=== PATIENT | male | born 1970 | race Caucasian/White ===

== ENCOUNTER 2021-02-27 18:02 | Inpatient (IN) | payer MEDICAID ==
[~2021-02-27] VITALS: Ht 167.6 cm; Wt 62.8 kg
[~2021-02-27 18:02] MED LIST: NO HOME MEDS; etomidate 2mg/ml inj. ONE; rocuronium 10mg/ml inj IV ONE; sod chloride 0.9% 10ml flush syringe IV ONE
[2021-02-27] MEDS ORDERED: normal saline 1000ML IV soln IVB ONE (18:05)
[2021-02-27 18:23] LABS: BASOPHILS # (AUTO) 0.1 X10'3 (0-0.2); BASOPHILS % (AUTO) 0.5 % (0-1); EOSINOPHILS # (AUTO) 0.2 X10'3 (0-0.9); EOSINOPHILS % (AUTO) 1.7 % (0-6); HEMATOCRIT 43.2 % (42.0-52.0); HEMOGLOBIN 14.3 g/dl (14.0-17.9); MEAN CORPUSCULAR HEMOGLOBIN 31.3 PG (27.0-31.0); MEAN CORPUSCULAR HGB CONC 33.2 g/dL (33.0-36.5); MEAN CORPUSCULAR VOLUME 94.3 FL (78-98); MEAN PLATELET VOLUME 7.4 FL (7.4-10.4); MONOCYTES # (AUTO) 1.6 X10'3 (0-0.9); MONOCYTES % (AUTO) 11.3 % (2-12); NEUTROPHILS # (AUTO) 4.3 X10'3 (1.8-7.7); NEUTROPHILS % (AUTO) 30.5 % (42-75); PLATELET COUNT 387 X10'3 (140-440); RED BLOOD COUNT 4.58 X10'6 (4.70-6.10); RED CELL DISTRIBUTION WIDTH 13.5 % (11.5-14.5); WHITE BLOOD COUNT 14.3 X10'3 (4.5-11.0)
[2021-02-27 18:48] LABS: ALANINE AMINOTRANSFERASE 27 U/L (12-78); ALBUMIN 3.1 G/DL (3.4-5.0); ALBUMIN/GLOBULIN RATIO 0.7 (1.1-1.5); ALKALINE PHOSPHATASE 82 IU/L (46-116); ANION GAP 12 (8-16); ASPARTATE AMINO TRANSFERASE 21 U/L (10-37); BILIRUBIN,TOTAL 0.7 MG/DL (0.1-1.0); BLOOD UREA NITROGEN 15 MG/DL (7-18); BUN/CREATININE RATIO 9.4 (5.4-32.0); CALCIUM 8.3 MG/DL (8.5-10.1); CHLORIDE 106 MMOL/L (99-107); CREATININE 1.59 MG/DL (0.60-1.10); GLUCOSE 320 MG/DL (70-104); POTASSIUM 3.6 MMOL/L (3.5-5.1); SODIUM 143 MMOL/L (135-145); TOTAL CARBON DIOXIDE 25.2 MMOL/L (24-32); TOTAL PROTEIN 7.8 G/DL (6.4-8.2); eGFR 46 ML/MIN
[2021-02-27 18:50] LABS: ETHANOL < 0.010 GM/DL (0.0-0.010)
[2021-02-27 19:21] LABS: TOTAL CELLS COUNTED 100
[2021-02-27 19:23] LABS: PLATELET ESTIMATE NORMAL; SMUDGE CELLS FEW
--- NOTE | 2021-02-27 19:24 | NUR ---
PT GIRLFRIEND CALLED AND LEFT NUMBER DESIREE: [phone]
[2021-02-27 19:44] LABS: ABG BASE EXCESS -8.1 mmol/L (-2.0-2.0); ABG HCO3 25.5 mmol/L (22.0-26.0); ABG OXYGEN SATURATION 90.6 % (94-97); ABG PCO2 (T) 100.6 mmHg (35.0-48.0); ALLEN'S TEST POSITIVE; FCOHb 0.4 % (0.0-3.9); FMetHb 0.3 % (0.0-1.5); PEEP 10 cm H2O; RESPIRATORY RATE 16 b/min; TIDAL VOLUME 400 mL; TOTAL HEMOGLOBIN 14.7 G/dl (14.0-18.0)
[2021-02-27] MEDS ORDERED: propofol 1000mg/100ml bottle 100 ML IV PRN (20:25)
[2021-02-27] MEDS ORDERED: propofol 1000mg/100ml bottle 100 ML IV ONE (20:26)
[2021-02-27] MEDS ORDERED: ipratropium/albuterol 3ml nebule NEB PRN (20:40)
[2021-02-27] MEDS ORDERED: CefTRIAXone/D5W-Rocephin 1gm 50 ML IV SCH ×2 (20:45→22:01)
[2021-02-27] MEDS: propofol 1000mg/100ml bottle 100 ML IV SCH ×2 (21:13→23:12)
[2021-02-27 21:59] LABS: CLARITY,URINE SLIGHTLY CLOUDY (Clear); COLOR,URINE YELLOW (Yellow); PROTEIN,URINE TRACE mg/dl (Neg); UA COLLECTION TYPE STRAIGHT CATH
[2021-02-27 22:00] LABS: GLUCOSE, URINE 100 mg/dl (Neg)
[2021-02-27 22:03] LABS: KETONES,URINE NEGATIVE (Neg); LEUKOCYTE ESTERASE ,URINE NEGATIVE (Neg); NITRITES, URINE NEGATIVE (Neg); OCCULT BLOOD,URINE NEGATIVE (Neg); UROBILINOGEN,URINE 0.2 E.U/dL (0.2-1.0)
[2021-02-27 22:06] LABS: URINE AMPHETAMINE SCREEN POSITIVE (Neg); URINE BARBITUATE SCREEN NEGATIVE (Neg); URINE BENZODIAZEPINES SCREEN NEGATIVE (Neg); URINE CANNABINOID SCREEN NEGATIVE (Neg); URINE COCAINE SCREEN NEGATIVE (Neg); URINE METHADONE SCREEN NEGATIVE (Neg); URINE OPIATE SCREEN NEGATIVE (Neg); URINE PHENCYCLIDINE SCREEN NEGATIVE (Neg)
[2021-02-27 22:07] LABS: CELLULAR CAST 0-4 /LPF (NEGATIVE); MUCUS STRANDS FEW /LPF (Neg); SQUAMOUS EPITHELIAL CELL,UR FEW /LPF (FEW)
[2021-02-27 22:08] LABS: BACTERIA,URINE FEW /HPF (Neg)
[2021-02-27 22:09] LABS: RBC,URINE 0-2 /HPF (0-2); WBC,URINE 0-4 /HPF (0-4)
[2021-02-27] MEDS: phenylephrine inj 50 MG in normal saline 250ml IV soln 245 ML IV SCH (22:25)
[2021-02-27] MEDS ORDERED: ringers solution, lacted 1,000 ML IV ONE (22:25)
[2021-02-27] MEDS: dexmedetomidine/D5W 100mL 100 ML IV SCH (22:36)
[2021-02-27] MEDS: ringers solution, lacted 1,000 ML IV SCH (22:45)
[2021-02-27 23:00] VITALS: BP 101/70
[2021-02-27] MEDS: metroNIDAZOLE-Flagyl 500mg/NS 100 ML IV SCH (23:13)
[2021-02-28] VITALS (21 sets, daily range): BP systolic 64–94; BP diastolic 30–58
[2021-02-28] MEDS: phenylephrine inj 50 MG in normal saline 250ml IV soln 245 ML IV SCH ×5 (01:48→22:23)
[2021-02-28] MEDS ORDERED: ringers solution, lacted 1,000 ML IV ONE ×2 (03:20→13:50)
[2021-02-28] MEDS: dexmedetomidine/D5W 100mL 100 ML IV SCH ×5 (03:28→23:22)
[2021-02-28] MEDS: NORepinephrine 8mg/ 250ml NS 250 ML IV SCH ×2 (03:38→11:06)
[2021-02-28 04:25] LABS: ABG BASE EXCESS -7.1 mmol/L (-2.0-2.0); ABG HCO3 19.4 mmol/L (22.0-26.0); ABG OXYGEN SATURATION 87.8 % (94-97); ABG PCO2 (T) 42.9 mmHg (35.0-48.0); ABG PO2 (T) 54.8 mmHg (75.0-100.0); ALLEN'S TEST POSITIVE; FCOHb 0.3 % (0.0-3.9); FMetHb 0.2 % (0.0-1.5); FO2Hb 87.4 % (94-97); PATIENT TEMPERATURE 37.1; PEEP 10 cm H2O; RESPIRATORY RATE 24 b/min; TIDAL VOLUME 450 mL; TOTAL HEMOGLOBIN 14.6 G/dl (14.0-18.0)
[2021-02-28] MEDS ORDERED: fentaNYL/PF 50MCG/1 ML 2ML syringe IV ONE (04:25)
[2021-02-28] MEDS ORDERED: vancomycin/NS 1 GM ADD-VANTAGE 250 ML IV SCH (06:00)
[2021-02-28 07:16] LABS: ALBUMIN 1.9 G/DL (3.4-5.0); ANION GAP 13 (8-16); BLOOD UREA NITROGEN 20 MG/DL (7-18); BUN/CREATININE RATIO 9.6 (5.4-32.0); CALCIUM 6.2 MG/DL (8.5-10.1); CHLORIDE 115 MMOL/L (99-107); CREATININE 2.08 MG/DL (0.60-1.10); GLUCOSE 83 MG/DL (70-104); MAGNESIUM 1.5 MG/DL (1.5-2.4); PHOSPHORUS 2.2 MG/DL (2.3-4.5); SODIUM 148 MMOL/L (135-145); TOTAL CARBON DIOXIDE 19.9 MMOL/L (24-32); TRIGLYCERIDES 316 MG/DL (20-135); eGFR 34 ML/MIN
[2021-02-28 07:21] LABS: POTASSIUM 3.8 MMOL/L (3.5-5.1)
[2021-02-28] MEDS: ringers solution, lacted 1,000 ML IV SCH (07:25)
[2021-02-28] MEDS ORDERED: CLINDAMYCIN/D5W 900mg/50ml 50 ML IV ONE (07:50)
[2021-02-28] MEDS ORDERED: CLINDAMYCIN/D5W 900mg/50ml 50 ML IV SCH (08:00)
[2021-02-28] MEDS ORDERED: VANCOMYCIN 1,500MG inj. 1,500 MG in normal saline 500ml IV soln 500 ML IV SCH (08:00)
[2021-02-28] MEDS: pantoprazole 40 MG vial IV SCH (08:12)
[2021-02-28] MEDS: enoxaparin 40mg/0.4ml syringe SUBCUT SCH (08:12)
[2021-02-28] MEDS: metroNIDAZOLE-Flagyl 500mg/NS 100 ML IV SCH (08:13)
[2021-02-28 08:17] LABS: HEMOGLOBIN A1C 5.1 % (4.5-6.2)
[2021-02-28] MEDS: propofol 1000mg/100ml bottle 100 ML IV SCH ×2 (08:17→17:41)
[2021-02-28] MEDS: sodium bicarbonate (8.4%) inj. 100 MEQ in dextrose 5%-water 1,000 ML IV SCH ×2 (09:00→17:15)
[2021-02-28] MEDS ORDERED: CALCIUM GLUC 1gm/50ml NACL,iso 100 ML IV ONE (09:25)
[2021-02-28 09:43] LABS: BASOPHILS % (AUTO) 0.3 % (0-1); EOSINOPHILS % (AUTO) 0.1 % (0-6); HEMATOCRIT 36.8 % (42.0-52.0); HEMOGLOBIN 11.9 g/dl (14.0-17.9); LYMPHOCYTES # (AUTO) 0.9 X10'3 (1.1-4.8); LYMPHOCYTES % (AUTO) 16.4 % (21-51); MEAN CORPUSCULAR HEMOGLOBIN 30.9 PG (27.0-31.0); MEAN CORPUSCULAR HGB CONC 32.3 g/dL (33.0-36.5); MEAN CORPUSCULAR VOLUME 95.8 FL (78-98); MEAN PLATELET VOLUME 7.3 FL (7.4-10.4); MONOCYTES # (AUTO) 0.2 X10'3 (0-0.9); MONOCYTES % (AUTO) 3.8 % (2-12); NEUTROPHILS # (AUTO) 4.2 X10'3 (1.8-7.7); NEUTROPHILS % (AUTO) 79.4 % (42-75); PLATELET COUNT 266 X10'3 (140-440); RED BLOOD COUNT 3.84 X10'6 (4.70-6.10); RED CELL DISTRIBUTION WIDTH 13.2 % (11.5-14.5); WHITE BLOOD COUNT 5.3 X10'3 (4.5-11.0)
[2021-02-28] MEDS ORDERED: CISatracurium **Bolus** 2 mg/ml inj IV ONE (10:00)
[2021-02-28 10:45] LABS: ALANINE AMINOTRANSFERASE 24 U/L (12-78); ALBUMIN/GLOBULIN RATIO 0.6 (1.1-1.5); ALKALINE PHOSPHATASE 39 IU/L (46-116); ASPARTATE AMINO TRANSFERASE 31 U/L (10-37); BILIRUBIN,TOTAL 0.6 MG/DL (0.1-1.0); TOTAL PROTEIN 5.2 G/DL (6.4-8.2)
[2021-02-28] MEDS: vasopressin inj. 40 UNIT in normal saline 50ml IV soln 38 ML IV SCH ×2 (10:49→19:17)
[2021-02-28] MEDS: CISatracurium besylate inj. 100 MG in normal saline 100ml IV soln 90 ML IV PRN (11:15)
--- NOTE | 2021-02-28 11:27 | NUR ---
Initial: Pt found down and unresponsive d/t fentanyl OD per EMR. Pt currently ventilated and sedated; propofol currently at 12.24ml/hr providing 323kcals/d. Pt w/ septic shock and KOBE per MD note, may require rotoprone bed. Limited nutrition intervention at this time given pt condition. TF recs below in case of prolonged intubation. Will continue to monitor. Recs: 1. IF TF, Continuous TF using Vital HP at 60ml/hr; may change based on current Propofol rate 2. IF TF, Additional water flush 100ml Q4H 3. IF TF, PALB QM/Th; daily wts 4. Routine bowel care 5. Monitor TF tolerance Addendum: 02/28/21 at [address] Amended: Links added.
[2021-02-28] MEDS ORDERED: vancomycin/NS 1 GM ADD-VANTAGE 250 ML IV PRN (11:50)
[2021-02-28 12:36] LABS: OXYGEN SATURATION (MIXED VEN) 82.1 % (60-80); PO2 MIXED VENOUS (TEMP COR) 61.3 mmHg (35-46)
[2021-02-28] MEDS: NORepinephrine inj. 32 MG in normal saline 250ml IV soln 218 ML IV SCH ×2 (15:22→21:53)
[2021-02-28] MEDS: meropenem inj 1 GM in normal saline 100ml IV soln 100 ML IV SCH ×2 (15:22→19:46)
--- NOTE | 2021-02-28 18:30 | NUR ---
Patient in room ICU 2039. I have received report from Steven GEIGER and had the opportunity to ask questions and assume patient care.
--- NOTE | 2021-02-28 19:30 | NUR ---
ICU Tele-Med MD notified and given and update on PT condition. PT is max dose on Quad strength Levo, Vaso and Brad with still low BP. Labs were drawn this morning. Order received to check a CBC and ABG. Will continue to monitor.
[2021-02-28 19:46] LABS: ABG BASE EXCESS -12.6 mmol/L (-2.0-2.0); ABG HCO3 24.9 mmol/L (22.0-26.0); ABG PCO2 (T) 149.7 mmHg (35.0-48.0); ABG PO2 (T) 54.9 mmHg (75.0-100.0); FCOHb 0.3 % (0.0-3.9); FMetHb 0.6 % (0.0-1.5); FO2Hb 77.3 % (94-97); PATIENT TEMPERATURE 37.3; PEEP 12 cm H2O; RESPIRATORY RATE 24 b/min; TIDAL VOLUME 450 mL; TOTAL HEMOGLOBIN 14.8 G/dl (14.0-18.0)
[2021-02-28 19:59] LABS: LYMPHOCYTES # (AUTO) 0.6 X10'3 (1.1-4.8); MEAN CORPUSCULAR VOLUME 96.5 FL (78-98); MONOCYTES # (AUTO) 0.1 X10'3 (0-0.9); NEUTROPHILS # (AUTO) 2.3 X10'3 (1.8-7.7); RED BLOOD COUNT 4.45 X10'6 (4.70-6.10); RED CELL DISTRIBUTION WIDTH 13.7 % (11.5-14.5)
--- NOTE | 2021-02-28 20:00 | NUR ---
ICU Tele-Med MD notified of critical ABG results. Order received to increase TV from 450 to 550 and increase RR from 24 to 30. Will continue to monitor.
[2021-02-28 20:01] LABS: BASOPHILS % (AUTO) 0.2 % (0-1); EOSINOPHILS % (AUTO) 0.1 % (0-6); HEMOGLOBIN 13.8 g/dl (14.0-17.9); LYMPHOCYTES % (AUTO) 19.4 % (21-51); MEAN CORPUSCULAR HGB CONC 32.2 g/dL (33.0-36.5); MEAN PLATELET VOLUME 7.4 FL (7.4-10.4); MONOCYTES % (AUTO) 3.3 % (2-12); PLATELET COUNT 245 X10'3 (140-440)
[2021-02-28] MEDS: lactobacillus rhamnosus 10,000 MMU CELLS/CAPSULE PO SCH (20:04)
[2021-02-28] MEDS: hydrocortisone sod succ/PF 100mg/2ml inj. IV SCH (20:04)
--- NOTE | 2021-02-28 21:55 | NUR ---
ICU Tele-Med MD notified and given update on PT condition. PT still continues to have low BP and on the downward trend despite being Maxxed on multiple pressors. Order received to start Epi gtt and to connect FloTrac. Will continue to monitor.
[2021-02-28 22:23] LABS: PLATELET ESTIMATE NORMAL; TOTAL CELLS COUNTED 100
[2021-02-28] MEDS: epiNEPHrine inj 5 MG in normal saline 250ml IV soln 245 ML IV PRN (22:23)
[2021-02-28 22:26] LABS: BURR CELLS FEW
[2021-02-28 22:34] LABS: LARGE PLATELETS FEW
[2021-03-01] VITALS (24 sets, daily range): BP systolic 71–121; BP diastolic 40–70
[2021-03-01] MEDS: sodium bicarbonate (8.4%) inj. 100 MEQ in dextrose 5%-water 1,000 ML IV SCH ×4 (01:04→17:22)
[2021-03-01] MEDS: hydrocortisone sod succ/PF 100mg/2ml inj. IV SCH ×4 (01:16→20:17)
[2021-03-01] MEDS: mineral oil/petrolatum ophthal oint EACHEYE SCH ×4 (01:26→20:20)
[2021-03-01] MEDS: CISatracurium besylate inj. 100 MG in normal saline 100ml IV soln 90 ML IV PRN ×2 (01:54→23:51)
[2021-03-01] MEDS: phenylephrine inj 50 MG in normal saline 250ml IV soln 245 ML IV SCH ×7 (01:55→23:46)
[2021-03-01] MEDS: epiNEPHrine inj 5 MG in normal saline 250ml IV soln 245 ML IV PRN ×2 (01:55→04:21)
[2021-03-01 02:03] LABS: BASOPHILS % (AUTO) 0.3 % (0-1); EOSINOPHILS % (AUTO) 0.2 % (0-6); HEMATOCRIT 43.7 % (42.0-52.0); LYMPHOCYTES # (AUTO) 0.8 X10'3 (1.1-4.8); LYMPHOCYTES % (AUTO) 19.2 % (21-51); MEAN CORPUSCULAR HGB CONC 32.2 g/dL (33.0-36.5); MEAN CORPUSCULAR VOLUME 96.6 FL (78-98); MEAN PLATELET VOLUME 7.7 FL (7.4-10.4); MONOCYTES # (AUTO) 0.2 X10'3 (0-0.9); MONOCYTES % (AUTO) 4.6 % (2-12); NEUTROPHILS # (AUTO) 3.2 X10'3 (1.8-7.7); NEUTROPHILS % (AUTO) 75.7 % (42-75); PLATELET COUNT 193 X10'3 (140-440); RED BLOOD COUNT 4.52 X10'6 (4.70-6.10); RED CELL DISTRIBUTION WIDTH 13.8 % (11.5-14.5); WHITE BLOOD COUNT 4.3 X10'3 (4.5-11.0)
[2021-03-01 02:11] LABS: PARTIAL THROMBOPLASTIN TIME 42 SECONDS (22-32)
[2021-03-01 02:21] LABS: ALANINE AMINOTRANSFERASE 55 U/L (12-78); ALBUMIN 1.8 G/DL (3.4-5.0); ALBUMIN/GLOBULIN RATIO 0.5 (1.1-1.5); ALKALINE PHOSPHATASE 46 IU/L (46-116); ANION GAP 18 (8-16); ASPARTATE AMINO TRANSFERASE 139 U/L (10-37); BILIRUBIN,TOTAL 0.6 MG/DL (0.1-1.0); BLOOD UREA NITROGEN 35 MG/DL (7-18); BUN/CREATININE RATIO 6.9 (5.4-32.0); CALCIUM 6.5 MG/DL (8.5-10.1); CHLORIDE 107 MMOL/L (99-107); GLUCOSE 143 MG/DL (70-104); MAGNESIUM 1.8 MG/DL (1.5-2.4); POTASSIUM 4.3 MMOL/L (3.5-5.1); SODIUM 145 MMOL/L (135-145); TOTAL CARBON DIOXIDE 19.9 MMOL/L (24-32); TOTAL PROTEIN 5.7 G/DL (6.4-8.2); VANCOMYCIN,RANDOM 5.9 UG/ML; eGFR 12 ML/MIN
[2021-03-01 02:25] LABS: PHOSPHORUS 10.3 MG/DL (2.3-4.5)
[2021-03-01] MEDS: VANCOMYCIN LEVEL IV SCH (02:41)
[2021-03-01] MEDS: dexmedetomidine/D5W 100mL 100 ML IV SCH ×5 (02:58→22:15)
--- NOTE | 2021-03-01 02:58 | NUR ---
ICU Tele-Med MD notified after receiving LA of 5.8. Also made him aware of CRE now is 5.10. No new orders received at this time. Will continue to monitor.
[2021-03-01 03:55] LABS: ABG BASE EXCESS -16.8 mmol/L (-2.0-2.0); ABG HCO3 18.9 mmol/L (22.0-26.0); ABG OXYGEN SATURATION 85.8 % (94-97); ABG PCO2 (T) 108.8 mmHg (35.0-48.0); ABG PO2 (T) 62.2 mmHg (75.0-100.0); FCOHb 0.1 % (0.0-3.9); FMetHb 0.5 % (0.0-1.5); FO2Hb 85.3 % (94-97); PATIENT TEMPERATURE 37.7; PEEP 12 cm H2O; RESPIRATORY RATE 30 b/min; TIDAL VOLUME 550 mL; TOTAL HEMOGLOBIN 14.8 G/dl (14.0-18.0)
[2021-03-01] MEDS: NORepinephrine inj. 32 MG in normal saline 250ml IV soln 218 ML IV SCH ×3 (04:23→18:52)
--- NOTE | 2021-03-01 04:45 | NUR ---
During morning rounds critical ABG results were reported to TELE-Med MD. Change in vent orders received with RT at bedside making changes. Recheck an ABG @ 3679.
[2021-03-01] MEDS: propofol 1000mg/100ml bottle 100 ML IV SCH ×2 (04:46→16:55)
[2021-03-01 05:41] LABS: ABG HCO3 18.6 mmol/L (22.0-26.0); ABG OXYGEN SATURATION 86.7 % (94-97); ABG PCO2 (T) 97.5 mmHg (35.0-48.0); ABG PO2 (T) 62.4 mmHg (75.0-100.0); FCOHb 0.2 % (0.0-3.9); FMetHb 0.5 % (0.0-1.5); FO2Hb 86.1 % (94-97); PATIENT TEMPERATURE 37.7; PEEP 12 cm H2O; RESPIRATORY RATE 28 b/min; TOTAL HEMOGLOBIN 14.6 G/dl (14.0-18.0)
--- NOTE | 2021-03-01 05:56 | NUR ---
ICU Tele-Med MD notified of critical values on re-check ABG. Orders received to increase pressure support from 27 to 28 and increase RR from 28 to 30. Recheck ABG at 0700.
--- NOTE | 2021-03-01 06:20 | NUR ---
Problems reprioritized. Patient report given, questions answered & plan of care reviewed with Steven GEIGER.
[2021-03-01] MEDS: epiNEPHrine inj 10 MG in normal saline 250ml IV soln 240 ML IV PRN ×6 (06:50→22:42)
[2021-03-01] MEDS: enoxaparin 40mg/0.4ml syringe SUBCUT SCH (07:39)
[2021-03-01] MEDS: lactobacillus rhamnosus 10,000 MMU CELLS/CAPSULE PO SCH ×2 (07:39→20:17)
[2021-03-01] MEDS: pantoprazole 40 MG vial IV SCH (07:39)
[2021-03-01] MEDS: meropenem inj 1 GM in normal saline 100ml IV soln 100 ML IV SCH ×2 (07:40→20:20)
[2021-03-01] MEDS ORDERED: heparin 25,000 UNIT/250ml bag 250 ML IV SCH (07:45)
[2021-03-01] MEDS ORDERED: calcium chloride inj. 1,000 MG in normal saline 100ml IV soln 100 ML IV PRN (07:45)
[2021-03-01] MEDS ORDERED: sodium phosphate inj. 30 MMOL in normal saline 250ml IV soln 250 ML IV PRN (07:45)
[2021-03-01] MEDS ORDERED: magnesium 4gm in 100ml NS 100 ML IV PRN (07:45)
[2021-03-01] MEDS ORDERED: heparin 10,000 units/1 ML INJ IV PRN (07:45)
[2021-03-01] MEDS ORDERED: heparin 10,000 units/1 ML INJ IV ONE (07:45)
[2021-03-01] MEDS ORDERED: vancomycin/NS 1 GM ADD-VANTAGE 250 ML IV ONE (08:00)
[2021-03-01] MEDS: Duosol 4K/3 Ca (w/calcium) 5,000 ML HE SCH ×7 (10:18→23:59)
[2021-03-01 10:28] LABS: BASOPHILS % (AUTO) 0.2 % (0-1); EOSINOPHILS % (AUTO) 0.2 % (0-6); HEMATOCRIT 41.4 % (42.0-52.0); HEMOGLOBIN 13.4 g/dl (14.0-17.9); LYMPHOCYTES # (AUTO) 0.8 X10'3 (1.1-4.8); LYMPHOCYTES % (AUTO) 12.2 % (21-51); MEAN CORPUSCULAR HEMOGLOBIN 31.3 PG (27.0-31.0); MEAN CORPUSCULAR HGB CONC 32.5 g/dL (33.0-36.5); MEAN CORPUSCULAR VOLUME 96.5 FL (78-98); MEAN PLATELET VOLUME 8.3 FL (7.4-10.4); MONOCYTES # (AUTO) 0.3 X10'3 (0-0.9); MONOCYTES % (AUTO) 5.2 % (2-12); NEUTROPHILS # (AUTO) 5.4 X10'3 (1.8-7.7); NEUTROPHILS % (AUTO) 82.2 % (42-75); PLATELET COUNT 129 X10'3 (140-440); RED BLOOD COUNT 4.29 X10'6 (4.70-6.10); RED CELL DISTRIBUTION WIDTH 13.6 % (11.5-14.5); WHITE BLOOD COUNT 6.5 X10'3 (4.5-11.0)
--- NOTE | 2021-03-01 11:06 | NUR ---
Gigi Consult: Gigi 12 w/ R calf scab otherwise skin intact per EMR. Noted pt propofol currently at 8.16ml/hr providing additional 215 kcals/day and starting CVVH this AM per MD. Given Vital High Protein shortage unable to meet minimum protein needs using Vital AF while receiving propofol.MAP remains 54-59 this AM. Updated TF recs below for both Vital AF and Vital High Protein given propofol/CVVH once more appropriate for nutrition support. Recs: 1. IF TF, Continuous TF using Vital High Protein at 75ml/hr would provide 1800ml volume/day, 1800 kcals, 1512ml water, and 158g protein. May change based on current Propofol rate. 2. IF out of Vital High Protein substitute w/ Vital; AF at 70ml/hr providing 1680ml volume/day, 2016 kcals, 1361ml water, and 126g protein. Unable to meet protein needs without overfeeding using Vital AF while pt receiving propofol. 3. IF TF, Additional water flush per staff sonographer on CVVH 4. IF TF, PALB QM/Th; daily wts 5. Routine bowel care Addendum: 03/01/21 at [address] Amended: Links added.
[2021-03-01 11:44] LABS: PARTIAL THROMBOPLASTIN TIME 43 SECONDS (22-32)
[2021-03-01 12:27] LABS: HEMATOCRIT 42.3 % (42.0-52.0); HEMOGLOBIN 13.9 g/dl (14.0-17.9); MEAN CORPUSCULAR HEMOGLOBIN 31.3 PG (27.0-31.0); MEAN PLATELET VOLUME 8.2 FL (7.4-10.4); PLATELET COUNT 103 X10'3 (140-440); RED BLOOD COUNT 4.45 X10'6 (4.70-6.10); RED CELL DISTRIBUTION WIDTH 13.8 % (11.5-14.5); WHITE BLOOD COUNT 8.6 X10'3 (4.5-11.0)
[2021-03-01 12:54] LABS: ALBUMIN 1.7 G/DL (3.4-5.0); ANION GAP 13 (8-16); BLOOD UREA NITROGEN 38 MG/DL (7-18); BUN/CREATININE RATIO 7.5 (5.4-32.0); CHLORIDE 104 MMOL/L (99-107); GLUCOSE 184 MG/DL (70-104); MAGNESIUM 1.7 MG/DL (1.5-2.4); PHOSPHORUS 8.8 MG/DL (2.3-4.5); POTASSIUM 3.8 MMOL/L (3.5-5.1); SODIUM 135 MMOL/L (135-145); TOTAL CARBON DIOXIDE 17.6 MMOL/L (24-32); eGFR 12 ML/MIN
--- NOTE | 2021-03-01 13:00 | NUR ---
Critical Ca of 6.0; replacing, will continue to monitor.
[2021-03-01 13:06] LABS: TOTAL CELLS COUNTED 100
[2021-03-01 13:07] LABS: ANISOCYTOSIS 1+; PLATELET ESTIMATE DECREASED; POIKILOCYTOSIS FEW; POLYCHROMASIA FEW
[2021-03-01 13:31] LABS: BASOPHILS % (AUTO) 0.2 % (0-1); EOSINOPHILS % (AUTO) 0.1 % (0-6); HEMATOCRIT 43.1 % (42.0-52.0); HEMOGLOBIN 14.2 g/dl (14.0-17.9); LYMPHOCYTES # (AUTO) 0.7 X10'3 (1.1-4.8); LYMPHOCYTES % (AUTO) 7.2 % (21-51); MEAN CORPUSCULAR HEMOGLOBIN 31.3 PG (27.0-31.0); MEAN CORPUSCULAR HGB CONC 32.9 g/dL (33.0-36.5); MEAN PLATELET VOLUME 8.2 FL (7.4-10.4); MONOCYTES # (AUTO) 0.3 X10'3 (0-0.9); NEUTROPHILS # (AUTO) 8.9 X10'3 (1.8-7.7); NEUTROPHILS % (AUTO) 89.5 % (42-75); PLATELET COUNT 96 X10'3 (140-440); RED BLOOD COUNT 4.54 X10'6 (4.70-6.10); RED CELL DISTRIBUTION WIDTH 13.4 % (11.5-14.5); WHITE BLOOD COUNT 9.9 X10'3 (4.5-11.0)
[2021-03-01 13:41] LABS: ALBUMIN 1.7 G/DL (3.4-5.0); ANION GAP 15 (8-16); BLOOD UREA NITROGEN 36 MG/DL (7-18); BUN/CREATININE RATIO 7.1 (5.4-32.0); CHLORIDE 104 MMOL/L (99-107); CREATININE 5.04 MG/DL (0.60-1.10); GLUCOSE 180 MG/DL (70-104); MAGNESIUM 1.7 MG/DL (1.5-2.4); PHOSPHORUS 8.5 MG/DL (2.3-4.5); POTASSIUM 3.8 MMOL/L (3.5-5.1); SODIUM 137 MMOL/L (135-145); TOTAL CARBON DIOXIDE 18.4 MMOL/L (24-32); eGFR 12 ML/MIN
[2021-03-01] MEDS: calcium chloride inj. 1,000 MG in normal saline 100ml IV soln 90 ML IV PRN (13:46)
[2021-03-01] MEDS: potassium Cl 40MEQ/250ML bag 270 ML IV PRN (13:46)
[2021-03-01 14:19] LABS: EOSINOPHILS % (AUTO) 0.1 % (0-6); HEMATOCRIT 42.8 % (42.0-52.0); HEMOGLOBIN 14.2 g/dl (14.0-17.9); MEAN CORPUSCULAR VOLUME 94.9 FL (78-98); MONOCYTES # (AUTO) 0.3 X10'3 (0-0.9); NEUTROPHILS # (AUTO) 9.4 X10'3 (1.8-7.7); RED CELL DISTRIBUTION WIDTH 13.5 % (11.5-14.5); WHITE BLOOD COUNT 10.4 X10'3 (4.5-11.0)
[2021-03-01 14:20] LABS: BASOPHILS % (AUTO) 0.3 % (0-1); LYMPHOCYTES # (AUTO) 0.6 X10'3 (1.1-4.8); MEAN CORPUSCULAR HEMOGLOBIN 31.6 PG (27.0-31.0); MEAN CORPUSCULAR HGB CONC 33.3 g/dL (33.0-36.5); MEAN PLATELET VOLUME 8.5 FL (7.4-10.4); MONOCYTES % (AUTO) 2.7 % (2-12); NEUTROPHILS % (AUTO) 90.9 % (42-75); PLATELET COUNT 88 X10'3 (140-440); RED BLOOD COUNT 4.52 X10'6 (4.70-6.10)
[2021-03-01 14:28] LABS: ALBUMIN 1.7 G/DL (3.4-5.0); ANION GAP 18 (8-16); BLOOD UREA NITROGEN 35 MG/DL (7-18); BUN/CREATININE RATIO 7.2 (5.4-32.0); CALCIUM 6.3 MG/DL (8.5-10.1); CHLORIDE 105 MMOL/L (99-107); CREATININE 4.87 MG/DL (0.60-1.10); GLUCOSE 187 MG/DL (70-104); MAGNESIUM 1.9 MG/DL (1.5-2.4); POTASSIUM 4.2 MMOL/L (3.5-5.1); SODIUM 140 MMOL/L (135-145); TOTAL CARBON DIOXIDE 17.5 MMOL/L (24-32); eGFR 13 ML/MIN
[2021-03-01 14:30] LABS: PHOSPHORUS 8.2 MG/DL (2.3-4.5)
[2021-03-01 15:15] LABS: BANDS% (MANUAL) 41 % (0-10); LYMPHOCYTES % (MANUAL) 18 % (21-51); METAMYLEOCYTES% (MANUAL) 24 % (0-0); MONOCYTES % (MANUAL) 3 % (2-12); MYELOCYTES % (MANUAL) 2 % (0-0)
[2021-03-01 15:20] LABS: NEUTROPHILS % (MANUAL) 12 % (42-75)
[2021-03-01 15:30] LABS: BASOPHILS % (AUTO) 0.2 % (0-1); EOSINOPHILS % (AUTO) 0.2 % (0-6); LYMPHOCYTES # (AUTO) 0.6 X10'3 (1.1-4.8); MEAN CORPUSCULAR HEMOGLOBIN 31.3 PG (27.0-31.0); RED CELL DISTRIBUTION WIDTH 13.5 % (11.5-14.5)
[2021-03-01 15:31] LABS: HEMATOCRIT 42.5 % (42.0-52.0); LYMPHOCYTES % (AUTO) 5.7 % (21-51); MEAN CORPUSCULAR VOLUME 94.9 FL (78-98); MEAN PLATELET VOLUME 8.3 FL (7.4-10.4); MONOCYTES # (AUTO) 0.4 X10'3 (0-0.9); MONOCYTES % (AUTO) 3.8 % (2-12); NEUTROPHILS # (AUTO) 9.5 X10'3 (1.8-7.7); NEUTROPHILS % (AUTO) 90.1 % (42-75); PLATELET COUNT 80 X10'3 (140-440); RED BLOOD COUNT 4.48 X10'6 (4.70-6.10); WHITE BLOOD COUNT 10.5 X10'3 (4.5-11.0)
[2021-03-01 16:30] LABS: ALBUMIN 1.6 G/DL (3.4-5.0); ANION GAP 18 (8-16); BLOOD UREA NITROGEN 35 MG/DL (7-18); BUN/CREATININE RATIO 7.5 (5.4-32.0); CALCIUM 7.2 MG/DL (8.5-10.1); CHLORIDE 106 MMOL/L (99-107); CREATININE 4.65 MG/DL (0.60-1.10); GLUCOSE 182 MG/DL (70-104); MAGNESIUM 2.3 MG/DL (1.5-2.4); PHOSPHORUS 7.8 MG/DL (2.3-4.5); POTASSIUM 4.6 MMOL/L (3.5-5.1); SODIUM 140 MMOL/L (135-145); TOTAL CARBON DIOXIDE 16.3 MMOL/L (24-32); eGFR 13 ML/MIN
[2021-03-01 17:00] LABS: ABG BASE EXCESS -15.7 mmol/L (-2.0-2.0); ABG OXYGEN SATURATION 94.7 % (94-97); ABG PCO2 (T) 52.1 mmHg (35.0-48.0); ABG PO2 (T) 70.5 mmHg (75.0-100.0); FCOHb 0.2 % (0.0-3.9); FMetHb 0.4 % (0.0-1.5); FO2Hb 94.1 % (94-97); PATIENT TEMPERATURE 35.9; PEEP 12 cm H2O; RESPIRATORY RATE 30 b/min; TIDAL VOLUME 720 mL; TOTAL HEMOGLOBIN 14.9 G/dl (14.0-18.0)
[2021-03-01] MEDS: vasopressin inj. 40 UNIT in normal saline 50ml IV soln 38 ML IV SCH (17:03)
--- NOTE | 2021-03-01 18:25 | NUR ---
Problems reprioritized. Patient report given, questions answered & plan of care reviewed with Haider GEIGER.
[2021-03-01 22:44] LABS: BASOPHILS % (AUTO) 0.1 % (0-1); EOSINOPHILS % (AUTO) 0.1 % (0-6); LYMPHOCYTES # (AUTO) 0.4 X10'3 (1.1-4.8); LYMPHOCYTES % (AUTO) 2.7 % (21-51); MONOCYTES # (AUTO) 0.4 X10'3 (0-0.9); RED CELL DISTRIBUTION WIDTH 13.2 % (11.5-14.5)
[2021-03-01 22:46] LABS: HEMATOCRIT 42.3 % (42.0-52.0); HEMOGLOBIN 14.3 g/dl (14.0-17.9); MEAN CORPUSCULAR HEMOGLOBIN 31.3 PG (27.0-31.0); MEAN CORPUSCULAR HGB CONC 33.9 g/dL (33.0-36.5); MEAN CORPUSCULAR VOLUME 92.3 FL (78-98); MEAN PLATELET VOLUME 8.6 FL (7.4-10.4); NEUTROPHILS # (AUTO) 13.5 X10'3 (1.8-7.7); NEUTROPHILS % (AUTO) 94.1 % (42-75); RED BLOOD COUNT 4.58 X10'6 (4.70-6.10); WHITE BLOOD COUNT 14.4 X10'3 (4.5-11.0)
[2021-03-01 23:01] LABS: ALBUMIN 1.7 G/DL (3.4-5.0); ANION GAP 19 (8-16); BLOOD UREA NITROGEN 28 MG/DL (7-18); BUN/CREATININE RATIO 7.2 (5.4-32.0); CALCIUM 6.7 MG/DL (8.5-10.1); CHLORIDE 103 MMOL/L (99-107); CREATININE 3.88 MG/DL (0.60-1.10); GLUCOSE 166 MG/DL (70-104); MAGNESIUM 2.1 MG/DL (1.5-2.4); PHOSPHORUS 5.8 MG/DL (2.3-4.5); POTASSIUM 4.5 MMOL/L (3.5-5.1); SODIUM 138 MMOL/L (135-145); TOTAL CARBON DIOXIDE 16.3 MMOL/L (24-32); eGFR 17 ML/MIN
[2021-03-01 23:02] LABS: PLATELET COUNT 50 X10'3 (140-440)
[2021-03-02] VITALS (24 sets, daily range): BP systolic 90–134; BP diastolic 36–80
[2021-03-02] MEDS: Duosol 4K/3 Ca (w/calcium) 5,000 ML HE SCH ×6 (00:01→06:24)
[2021-03-02] MEDS: calcium chloride inj. 1,000 MG in normal saline 100ml IV soln 90 ML IV PRN (00:08)
[2021-03-02] MEDS: sodium bicarbonate (8.4%) inj. 100 MEQ in dextrose 5%-water 1,000 ML IV SCH (00:51)
[2021-03-02] MEDS: NORepinephrine inj. 32 MG in normal saline 250ml IV soln 218 ML IV SCH ×4 (00:54→19:55)
[2021-03-02] MEDS: propofol 1000mg/100ml bottle 100 ML IV SCH ×3 (01:11→17:53)
[2021-03-02 01:14] LABS: ANISOCYTOSIS 1+; PLATELET ESTIMATE DECREASED; TOTAL CELLS COUNTED 100
[2021-03-02 01:15] LABS: POLYCHROMASIA FEW; SMUDGE CELLS FEW
[2021-03-02 01:16] LABS: POIKILOCYTOSIS FEW
[2021-03-02] MEDS: dexmedetomidine/D5W 100mL 100 ML IV SCH ×5 (02:21→17:52)
[2021-03-02] MEDS: hydrocortisone sod succ/PF 100mg/2ml inj. IV SCH ×4 (02:34→20:33)
[2021-03-02] MEDS: mineral oil/petrolatum ophthal oint EACHEYE SCH ×4 (02:34→20:35)
[2021-03-02] MEDS: VANCOMYCIN LEVEL IV SCH (03:00)
[2021-03-02 03:30] LABS: ABG BASE EXCESS -8.6 mmol/L (-2.0-2.0); ABG HCO3 15.8 mmol/L (22.0-26.0); ABG OXYGEN SATURATION 96.7 % (94-97); ABG PCO2 (T) 28.9 mmHg (35.0-48.0); ABG PO2 (T) 80.3 mmHg (75.0-100.0); FCOHb 0.3 % (0.0-3.9); FMetHb 0.3 % (0.0-1.5); FO2Hb 96.1 % (94-97); PATIENT TEMPERATURE 36.3; PEEP 12 cm H2O; RESPIRATORY RATE 30 b/min; TOTAL HEMOGLOBIN 13.4 G/dl (14.0-18.0)
[2021-03-02 04:05] LABS: HEMOGLOBIN 14.3 g/dl (14.0-17.9); LYMPHOCYTES # (AUTO) 0.4 X10'3 (1.1-4.8); MEAN CORPUSCULAR VOLUME 92.9 FL (78-98); NEUTROPHILS # (AUTO) 15.5 X10'3 (1.8-7.7); RED CELL DISTRIBUTION WIDTH 13.6 % (11.5-14.5)
[2021-03-02 04:08] LABS: BASOPHILS % (AUTO) 0.1 % (0-1); EOSINOPHILS % (AUTO) 0 % (0-6); HEMATOCRIT 42.8 % (42.0-52.0); LYMPHOCYTES % (AUTO) 2.2 % (21-51); MEAN CORPUSCULAR HEMOGLOBIN 31.1 PG (27.0-31.0); MEAN CORPUSCULAR HGB CONC 33.5 g/dL (33.0-36.5); MEAN PLATELET VOLUME 9.2 FL (7.4-10.4); MONOCYTES # (AUTO) 0.3 X10'3 (0-0.9); MONOCYTES % (AUTO) 2.1 % (2-12); NEUTROPHILS % (AUTO) 95.6 % (42-75); WHITE BLOOD COUNT 16.2 X10'3 (4.5-11.0)
[2021-03-02 04:19] LABS: ALANINE AMINOTRANSFERASE 121 U/L (12-78); ALBUMIN 1.7 G/DL (3.4-5.0); ALBUMIN/GLOBULIN RATIO 0.4 (1.1-1.5); ALKALINE PHOSPHATASE 112 IU/L (46-116); ANION GAP 16 (8-16); ASPARTATE AMINO TRANSFERASE 356 U/L (10-37); BILIRUBIN,TOTAL 1.7 MG/DL (0.1-1.0); BLOOD UREA NITROGEN 27 MG/DL (7-18); CALCIUM 7.6 MG/DL (8.5-10.1); CHLORIDE 102 MMOL/L (99-107); CREATININE 3.37 MG/DL (0.60-1.10); GLUCOSE 124 MG/DL (70-104); MAGNESIUM 1.9 MG/DL (1.5-2.4); PHOSPHORUS 3.8 MG/DL (2.3-4.5); SODIUM 136 MMOL/L (135-145); TOTAL CARBON DIOXIDE 17.6 MMOL/L (24-32); TOTAL PROTEIN 5.7 G/DL (6.4-8.2); eGFR 19 ML/MIN
[2021-03-02 04:20] LABS: VANCOMYCIN,RANDOM 11.2 UG/ML
[2021-03-02 04:23] LABS: POTASSIUM 5.2 MMOL/L (3.5-5.1)
[2021-03-02 04:28] LABS: PLATELET COUNT 38 X10'3 (140-440)
[2021-03-02] MEDS: meropenem inj 1 GM in normal saline 100ml IV soln 100 ML IV SCH ×3 (04:38→20:32)
[2021-03-02 05:30] LABS: ABG BASE EXCESS -6.8 mmol/L (-2.0-2.0); ABG HCO3 19.3 mmol/L (22.0-26.0); ABG OXYGEN SATURATION 94.3 % (94-97); ABG PCO2 (T) 39.8 mmHg (35.0-48.0); ABG PO2 (T) 70.2 mmHg (75.0-100.0); FMetHb 0.4 % (0.0-1.5); FO2Hb 93.9 % (94-97); PATIENT TEMPERATURE 36.5; PEEP 12 cm H2O; RESPIRATORY RATE 30 b/min; TOTAL HEMOGLOBIN 14.5 G/dl (14.0-18.0)
[2021-03-02] MEDS: phenylephrine inj 50 MG in normal saline 250ml IV soln 245 ML IV SCH (06:52)
[2021-03-02] MEDS: pantoprazole 40 MG vial IV SCH (07:49)
[2021-03-02] MEDS: lactobacillus rhamnosus 10,000 MMU CELLS/CAPSULE PO SCH ×2 (07:50→20:33)
[2021-03-02 09:15] LABS: HEMOGLOBIN 14.1 g/dl (14.0-17.9); LYMPHOCYTES # (AUTO) 0.3 X10'3 (1.1-4.8); NEUTROPHILS # (AUTO) 19.1 X10'3 (1.8-7.7); WHITE BLOOD COUNT 19.9 X10'3 (4.5-11.0)
[2021-03-02 09:17] LABS: BASOPHILS % (AUTO) 0.2 % (0-1); EOSINOPHILS % (AUTO) 0.1 % (0-6); HEMATOCRIT 40.7 % (42.0-52.0); LYMPHOCYTES % (AUTO) 1.5 % (21-51); MEAN CORPUSCULAR HEMOGLOBIN 31.6 PG (27.0-31.0); MEAN CORPUSCULAR HGB CONC 34.5 g/dL (33.0-36.5); MEAN CORPUSCULAR VOLUME 91.6 FL (78-98); MEAN PLATELET VOLUME 8.6 FL (7.4-10.4); MONOCYTES # (AUTO) 0.5 X10'3 (0-0.9); MONOCYTES % (AUTO) 2.6 % (2-12); NEUTROPHILS % (AUTO) 95.6 % (42-75); RED BLOOD COUNT 4.44 X10'6 (4.70-6.10); RED CELL DISTRIBUTION WIDTH 13.3 % (11.5-14.5)
[2021-03-02 09:19] LABS: PLATELET COUNT 25 X10'3 (140-440)
[2021-03-02 09:27] LABS: ALBUMIN 1.5 G/DL (3.4-5.0); ANION GAP 10 (8-16); BLOOD UREA NITROGEN 26 MG/DL (7-18); BUN/CREATININE RATIO 8.5 (5.4-32.0); CALCIUM 7.3 MG/DL (8.5-10.1); CHLORIDE 102 MMOL/L (99-107); CREATININE 3.06 MG/DL (0.60-1.10); MAGNESIUM 1.8 MG/DL (1.5-2.4); PHOSPHORUS 3.9 MG/DL (2.3-4.5); SODIUM 133 MMOL/L (135-145); TOTAL CARBON DIOXIDE 21.2 MMOL/L (24-32); eGFR 22 ML/MIN
--- NOTE | 2021-03-02 09:30 | NUR ---
Discussed plan of care during rounds with Dr. Hardin. Orders to stop Bicarb drip and recheck ABG this afternoon. Hold on Fentanyl/pain meds at this time and continue Precedex; increase Propofol as tolerated. Wean Nimbex as tolerated. MD aware of critically low Platelet count and critically high lactic acid. Heparin D/C'd.
[2021-03-02 09:37] LABS: TOTAL CELLS COUNTED 100
[2021-03-02 09:38] LABS: PLATELET ESTIMATE DECREASED; SMUDGE CELLS FEW; TEAR DROP CELLS 4+
[2021-03-02 09:39] LABS: POLYCHROMASIA FEW
[2021-03-02 09:49] LABS: GLUCOSE 101 MG/DL (70-104); POTASSIUM 5.3 MMOL/L (3.5-5.1)
[2021-03-02] MEDS: vasopressin inj. 40 UNIT in normal saline 50ml IV soln 38 ML IV SCH (11:00)
[2021-03-02] MEDS: VANCOMYCIN 750MG IV in NS 250 ML IV SCH (11:00)
[2021-03-02] MEDS: bicarb dialysis sol 2K+/3 Ca2+ 5,000 ML HE SCH ×5 (11:46→19:12)
[2021-03-02 15:04] LABS: ABG BASE EXCESS -3.6 mmol/L (-2.0-2.0); ABG HCO3 22.3 mmol/L (22.0-26.0); ABG OXYGEN SATURATION 92.3 % (94-97); ABG PCO2 (T) 42.2 mmHg (35.0-48.0); ABG PO2 (T) 61.9 mmHg (75.0-100.0); FCOHb 0.4 % (0.0-3.9); FMetHb 0.3 % (0.0-1.5); FO2Hb 91.7 % (94-97); PATIENT TEMPERATURE 36.3; PEEP 12 cm H2O; RESPIRATORY RATE 30 b/min; TOTAL HEMOGLOBIN 14.3 G/dl (14.0-18.0)
[2021-03-02 15:11] LABS: BASOPHILS # (AUTO) 0.1 X10'3 (0-0.2); BASOPHILS % (AUTO) 0.3 % (0-1); HEMOGLOBIN 13.7 g/dl (14.0-17.9); LYMPHOCYTES # (AUTO) 0.3 X10'3 (1.1-4.8); MONOCYTES % (AUTO) 0.2 % (2-12)
[2021-03-02 15:12] LABS: EOSINOPHILS % (AUTO) 0.1 % (0-6); HEMATOCRIT 40.7 % (42.0-52.0); LYMPHOCYTES % (AUTO) 1.6 % (21-51); MEAN CORPUSCULAR HEMOGLOBIN 31.2 PG (27.0-31.0); MEAN CORPUSCULAR HGB CONC 33.6 g/dL (33.0-36.5); MEAN CORPUSCULAR VOLUME 92.9 FL (78-98); MEAN PLATELET VOLUME 8.6 FL (7.4-10.4); NEUTROPHILS % (AUTO) 97.8 % (42-75); RED BLOOD COUNT 4.38 X10'6 (4.70-6.10); RED CELL DISTRIBUTION WIDTH 13.3 % (11.5-14.5); WHITE BLOOD COUNT 19.4 X10'3 (4.5-11.0)
[2021-03-02 15:20] LABS: PLATELET COUNT 19 X10'3 (140-440)
[2021-03-02 15:25] LABS: ALBUMIN 1.5 G/DL (3.4-5.0); ANION GAP 8 (8-16); BLOOD UREA NITROGEN 25 MG/DL (7-18); BUN/CREATININE RATIO 9.2 (5.4-32.0); CHLORIDE 102 MMOL/L (99-107); CREATININE 2.73 MG/DL (0.60-1.10); MAGNESIUM 1.8 MG/DL (1.5-2.4); SODIUM 131 MMOL/L (135-145); TOTAL CARBON DIOXIDE 20.9 MMOL/L (24-32); eGFR 25 ML/MIN
[2021-03-02 15:36] LABS: CALCIUM 7.2 MG/DL (8.5-10.1)
[2021-03-02 15:37] LABS: GLUCOSE 86 MG/DL (70-104); PHOSPHORUS 3.5 MG/DL (2.3-4.5); POTASSIUM 5.4 MMOL/L (3.5-5.1)
[2021-03-02] MEDS: CISatracurium besylate inj. 100 MG in normal saline 100ml IV soln 90 ML IV PRN (17:52)
--- NOTE | 2021-03-02 18:13 | NUR ---
Problems reprioritized. Patient report given, questions answered & plan of care reviewed with Haider GEIGER.
[2021-03-02 21:28] LABS: ALBUMIN 1.4 G/DL (3.4-5.0); BLOOD UREA NITROGEN 25 MG/DL (7-18); BUN/CREATININE RATIO 10.2 (5.4-32.0); CALCIUM 6.9 MG/DL (8.5-10.1); CREATININE 2.46 MG/DL (0.60-1.10); MAGNESIUM 1.7 MG/DL (1.5-2.4); TOTAL CARBON DIOXIDE 22.7 MMOL/L (24-32); eGFR 28 ML/MIN
[2021-03-02 21:41] LABS: BASOPHILS # (AUTO) 0.1 X10'3 (0-0.2); BASOPHILS % (AUTO) 0.3 % (0-1); EOSINOPHILS % (AUTO) 0.1 % (0-6); HEMATOCRIT 38.2 % (42.0-52.0); HEMOGLOBIN 13.2 g/dl (14.0-17.9); LYMPHOCYTES # (AUTO) 0.5 X10'3 (1.1-4.8); LYMPHOCYTES % (AUTO) 2.4 % (21-51); MEAN CORPUSCULAR HEMOGLOBIN 31.7 PG (27.0-31.0); MEAN CORPUSCULAR HGB CONC 34.5 g/dL (33.0-36.5); MEAN CORPUSCULAR VOLUME 92.1 FL (78-98); MEAN PLATELET VOLUME 8.9 FL (7.4-10.4); MONOCYTES # (AUTO) 0.4 X10'3 (0-0.9); NEUTROPHILS # (AUTO) 18.4 X10'3 (1.8-7.7); NEUTROPHILS % (AUTO) 95.2 % (42-75); RED BLOOD COUNT 4.15 X10'6 (4.70-6.10); RED CELL DISTRIBUTION WIDTH 13.4 % (11.5-14.5); WHITE BLOOD COUNT 19.3 X10'3 (4.5-11.0)
[2021-03-02 21:44] LABS: PLATELET COUNT 15 X10'3 (140-440)
[2021-03-02 21:55] LABS: ANION GAP 10 (8-16); CHLORIDE 104 MMOL/L (99-107); GLUCOSE 79 MG/DL (70-104); PHOSPHORUS 3.4 MG/DL (2.3-4.5); SODIUM 137 MMOL/L (135-145)
[2021-03-02 21:56] LABS: POTASSIUM 5.6 MMOL/L (3.5-5.1)
[2021-03-03] VITALS (23 sets, daily range): BP systolic 90–136; BP diastolic 52–82
[2021-03-03] MEDS: dexmedetomidine/D5W 100mL 100 ML IV SCH ×6 (01:25→19:30)
[2021-03-03] MEDS: mineral oil/petrolatum ophthal oint EACHEYE SCH ×4 (02:00→19:31)
[2021-03-03 02:55] LABS: EOSINOPHILS % (AUTO) 0 % (0-6); HEMATOCRIT 36.4 % (42.0-52.0); LYMPHOCYTES # (AUTO) 0.4 X10'3 (1.1-4.8)
[2021-03-03 02:57] LABS: BASOPHILS % (AUTO) 0.2 % (0-1); HEMOGLOBIN 12.9 g/dl (14.0-17.9); MEAN CORPUSCULAR HEMOGLOBIN 32.3 PG (27.0-31.0); MEAN CORPUSCULAR HGB CONC 35.5 g/dL (33.0-36.5); MEAN PLATELET VOLUME 8.9 FL (7.4-10.4); MONOCYTES # (AUTO) 0.7 X10'3 (0-0.9); MONOCYTES % (AUTO) 3.6 % (2-12); NEUTROPHILS # (AUTO) 19.2 X10'3 (1.8-7.7); NEUTROPHILS % (AUTO) 94.2 % (42-75); RED CELL DISTRIBUTION WIDTH 13.3 % (11.5-14.5); WHITE BLOOD COUNT 20.4 X10'3 (4.5-11.0)
[2021-03-03 03:04] LABS: PLATELET COUNT 15 X10'3 (140-440)
[2021-03-03 03:23] LABS: ALBUMIN 1.4 G/DL (3.4-5.0); ALKALINE PHOSPHATASE 140 IU/L (46-116); BILIRUBIN,TOTAL 2.4 MG/DL (0.1-1.0); BLOOD UREA NITROGEN 25 MG/DL (7-18); BUN/CREATININE RATIO 10.1 (5.4-32.0); CALCIUM 7.1 MG/DL (8.5-10.1); CREATININE 2.48 MG/DL (0.60-1.10); MAGNESIUM 1.8 MG/DL (1.5-2.4); TOTAL CARBON DIOXIDE 22.1 MMOL/L (24-32); eGFR 28 ML/MIN
[2021-03-03 03:57] LABS: ABG HCO3 21.8 mmol/L (22.0-26.0); ABG OXYGEN SATURATION 96.9 % (94-97); ABG PCO2 (T) 38.4 mmHg (35.0-48.0); ABG PO2 (T) 96.3 mmHg (75.0-100.0); FCOHb 0.1 % (0.0-3.9); FMetHb 0.2 % (0.0-1.5); FO2Hb 96.6 % (94-97); PEEP 12 cm H2O; RESPIRATORY RATE 30 b/min; TOTAL HEMOGLOBIN 13.3 G/dl (14.0-18.0)
[2021-03-03 04:00] LABS: ALANINE AMINOTRANSFERASE 165 U/L (12-78); ALBUMIN/GLOBULIN RATIO 0.3 (1.1-1.5); ANION GAP 12 (8-16); ASPARTATE AMINO TRANSFERASE 325 U/L (10-37); CHLORIDE 103 MMOL/L (99-107); GLUCOSE 88 MG/DL (70-104); PHOSPHORUS 3.9 MG/DL (2.3-4.5); SODIUM 137 MMOL/L (135-145); TOTAL PROTEIN 5.5 G/DL (6.4-8.2)
[2021-03-03 04:08] LABS: POTASSIUM 5.6 MMOL/L (3.5-5.1)
[2021-03-03] MEDS: hydrocortisone sod succ/PF 100mg/2ml inj. IV SCH ×4 (04:49→19:30)
[2021-03-03] MEDS: meropenem inj 1 GM in normal saline 100ml IV soln 100 ML IV SCH ×3 (04:50→20:59)
[2021-03-03] MEDS: vasopressin inj. 40 UNIT in normal saline 50ml IV soln 38 ML IV SCH ×2 (05:31→19:28)
[2021-03-03] MEDS: calcium chloride inj. 10,000 MG in normal saline 500ml IV soln 400 ML IV PRN (07:21)
[2021-03-03] MEDS: bicarb dialysis sol 2K+/3 Ca2+ 5,000 ML HE SCH (07:22)
[2021-03-03] MEDS: bicarb dialysis sol 2k/0 Ca2+ 5,000 ML HE SCH ×7 (07:23→22:27)
[2021-03-03 07:35] LABS: NUCLEATED RED BLOOD CELLS 1 /100WBC (0-0); TOTAL CELLS COUNTED 100
[2021-03-03 07:37] LABS: PLATELET ESTIMATE DECREASED; TEAR DROP CELLS 4+
--- NOTE | 2021-03-03 08:03 | NUR ---
Reassessment: Pt remains ventilated and sedated; propofol currently at 12.24ml/hr providing 323kcals/d. Pt continues to receive CVVH. Given Vital High Protein shortage unable to meet minimum protein needs using Vital AF while receiving propofol. Updated TF recs below for both Vital AF and Vital High Protein given propofol/CVVH. [facility] 02/28, Will continue to monitor for TF tolerance and adjust needs as medically indicated Recs: 1. IF TF, Continuous TF using Vital High Protein at 75ml/hr would provide 1800ml volume/day, 1800 kcals, 1512ml water, and 158g protein. May change based on current Propofol rate. 2. IF out of Vital High Protein substitute w/ Vital; AF at 65ml/hr providing 1560ml volume/day, 1872 kcals, 1263ml water, and 117g protein. Unable to meet protein needs without overfeeding using Vital AF while pt receiving propofol. 3. IF TF, Additional water flush per drilling rig operator on CVVH 4. IF TF, PALB QM/Th; daily wts 5. Routine bowel care Addendum: 03/03/21 at [address] Amended: Links added.
[2021-03-03] MEDS: propofol 1000mg/100ml bottle 100 ML IV SCH ×3 (08:25→19:30)
[2021-03-03] MEDS: lactobacillus rhamnosus 10,000 MMU CELLS/CAPSULE PO SCH ×2 (08:26→19:31)
[2021-03-03] MEDS: pantoprazole 40 MG vial IV SCH (08:26)
[2021-03-03 09:09] LABS: ALBUMIN 1.4 G/DL (3.4-5.0); ANION GAP 8 (8-16); BASOPHILS % (AUTO) 0.1 % (0-1); BLOOD UREA NITROGEN 26 MG/DL (7-18); BUN/CREATININE RATIO 10.8 (5.4-32.0); CALCIUM 7.2 MG/DL (8.5-10.1); CHLORIDE 102 MMOL/L (99-107); EOSINOPHILS % (AUTO) 0.1 % (0-6); GLUCOSE 101 MG/DL (70-104); HEMOGLOBIN 12.8 g/dl (14.0-17.9); MAGNESIUM 1.9 MG/DL (1.5-2.4); PHOSPHORUS 3.3 MG/DL (2.3-4.5); POTASSIUM 5.2 MMOL/L (3.5-5.1); SODIUM 132 MMOL/L (135-145); TOTAL CARBON DIOXIDE 21.6 MMOL/L (24-32); eGFR 29 ML/MIN
[2021-03-03 09:13] LABS: HEMATOCRIT 37.2 % (42.0-52.0); LYMPHOCYTES # (AUTO) 0.5 X10'3 (1.1-4.8); LYMPHOCYTES % (AUTO) 2.4 % (21-51); MEAN CORPUSCULAR HEMOGLOBIN 31.6 PG (27.0-31.0); MEAN CORPUSCULAR HGB CONC 34.3 g/dL (33.0-36.5); MEAN PLATELET VOLUME 9.2 FL (7.4-10.4); MONOCYTES # (AUTO) 0.6 X10'3 (0-0.9); MONOCYTES % (AUTO) 2.5 % (2-12); NEUTROPHILS # (AUTO) 21.4 X10'3 (1.8-7.7); NEUTROPHILS % (AUTO) 94.9 % (42-75); RED BLOOD COUNT 4.04 X10'6 (4.70-6.10); RED CELL DISTRIBUTION WIDTH 13.4 % (11.5-14.5); WHITE BLOOD COUNT 22.6 X10'3 (4.5-11.0)
[2021-03-03 09:20] LABS: PLATELET COUNT 14 X10'3 (140-440)
[2021-03-03] MEDS: NORepinephrine inj. 32 MG in normal saline 250ml IV soln 218 ML IV SCH ×2 (10:24→19:29)
[2021-03-03] MEDS: VANCOMYCIN 750MG IV in NS 250 ML IV SCH (10:26)
[2021-03-03] MEDS: SODIUM ZIRCONIUM CYCLOSILICATE 10 GM POWD.PACK PO SCH ×2 (13:01→21:48)
--- NOTE | 2021-03-03 13:11 | NUR ---
0700- assumed care. patient not rousable. cough present when layed flat or suction. wound to RLE covered with dressing, margins drawn, redness does not extend past margins. 1100- Filter change on CVVH in progress. Able to complete a full turn/sheet change. DTI to bilateral buttocks, extends to deep within gluteal fold, small open area on right buttock, loose fluid filled blister to left buttock, replaced optifoams x 2. 1150- CVVH resumed 1230- CVVH alarming, bloodleak, no leak seen, attempted fix as directed. Alarm not clearing. Contacted Nayeli with dialysis.
[2021-03-03 15:32] LABS: RED CELL DISTRIBUTION WIDTH 13.4 % (11.5-14.5)
[2021-03-03 15:33] LABS: BASOPHILS # (AUTO) 0.1 X10'3 (0-0.2); BASOPHILS % (AUTO) 0.2 % (0-1); EOSINOPHILS % (AUTO) 0.1 % (0-6); HEMATOCRIT 34.5 % (42.0-52.0); LYMPHOCYTES # (AUTO) 0.8 X10'3 (1.1-4.8); LYMPHOCYTES % (AUTO) 2.9 % (21-51); MEAN CORPUSCULAR HEMOGLOBIN 32.2 PG (27.0-31.0); MEAN CORPUSCULAR HGB CONC 34.8 g/dL (33.0-36.5); MEAN CORPUSCULAR VOLUME 92.6 FL (78-98); MEAN PLATELET VOLUME 9.2 FL (7.4-10.4); MONOCYTES # (AUTO) 0.3 X10'3 (0-0.9); MONOCYTES % (AUTO) 1.1 % (2-12); NEUTROPHILS # (AUTO) 25.7 X10'3 (1.8-7.7); NEUTROPHILS % (AUTO) 95.7 % (42-75); RED BLOOD COUNT 3.73 X10'6 (4.70-6.10)
[2021-03-03 15:36] LABS: ANION GAP 11 (8-16); BLOOD UREA NITROGEN 33 MG/DL (7-18); BUN/CREATININE RATIO 13.9 (5.4-32.0); CALCIUM 7.8 MG/DL (8.5-10.1); CHLORIDE 104 MMOL/L (99-107); CREATININE 2.37 MG/DL (0.60-1.10); SODIUM 136 MMOL/L (135-145); TOTAL CARBON DIOXIDE 21.4 MMOL/L (24-32); eGFR 29 ML/MIN
[2021-03-03 15:37] LABS: ALBUMIN 1.4 G/DL (3.4-5.0)
[2021-03-03 15:41] LABS: GLUCOSE 105 MG/DL (70-104); PHOSPHORUS 4.1 MG/DL (2.3-4.5); POTASSIUM 5.1 MMOL/L (3.5-5.1)
[2021-03-03 15:47] LABS: PLATELET COUNT 12 X10'3 (140-440); WHITE BLOOD COUNT 26.9 X10'3 (4.5-11.0)
--- NOTE | 2021-03-03 18:40 | NUR ---
I have received report and assumed care of pt, CVVH in place Levophed and and vasopressin in place for blood pressure support. Tube feeding in place for nutritional support, all vasoactive medication via Picc line. pt does facial grimace at rest and with oral care. will titrate vasoactive medication as tolerated keeping map greater then 60
[2021-03-04] VITALS (24 sets, daily range): BP systolic 96–177; BP diastolic 61–78
[2021-03-04] MEDS: dexmedetomidine/D5W 100mL 100 ML IV SCH ×6 (00:04→19:28)
[2021-03-04] MEDS: phenylephrine inj 50 MG in normal saline 250ml IV soln 245 ML IV SCH (00:13)
[2021-03-04 01:12] LABS: MEAN CORPUSCULAR HGB CONC 35.3 g/dL (33.0-36.5); MEAN PLATELET VOLUME 9.6 FL (7.4-10.4)
[2021-03-04 01:14] LABS: HEMATOCRIT 32.2 % (42.0-52.0); HEMOGLOBIN 11.4 g/dl (14.0-17.9); MEAN CORPUSCULAR HEMOGLOBIN 32.1 PG (27.0-31.0); MEAN CORPUSCULAR VOLUME 90.8 FL (78-98); RED BLOOD COUNT 3.55 X10'6 (4.70-6.10); RED CELL DISTRIBUTION WIDTH 13.4 % (11.5-14.5)
[2021-03-04 01:26] LABS: PLATELET COUNT 11 X10'3 (140-440); WHITE BLOOD COUNT 35.8 X10'3 (4.5-11.0)
[2021-03-04 01:27] LABS: ALBUMIN 1.4 G/DL (3.4-5.0); ALKALINE PHOSPHATASE 171 IU/L (46-116); BILIRUBIN,TOTAL 1.9 MG/DL (0.1-1.0); BLOOD UREA NITROGEN 34 MG/DL (7-18); CALCIUM 7.6 MG/DL (8.5-10.1); CREATININE 2.26 MG/DL (0.60-1.10); MAGNESIUM 2.3 MG/DL (1.5-2.4); PREALBUMIN 8.2 MG/DL (19-36); TOTAL CARBON DIOXIDE 20.5 MMOL/L (24-32); eGFR 31 ML/MIN
[2021-03-04 01:29] LABS: ALBUMIN/GLOBULIN RATIO 0.4 (1.1-1.5); POTASSIUM 4.9 MMOL/L (3.5-5.1); TOTAL PROTEIN 5.4 G/DL (6.4-8.2)
[2021-03-04 02:04] LABS: ALANINE AMINOTRANSFERASE 143 U/L (12-78); ANION GAP 13 (8-16); CHLORIDE 104 MMOL/L (99-107); GLUCOSE 100 MG/DL (70-104); SODIUM 137 MMOL/L (135-145)
[2021-03-04 02:12] LABS: ASPARTATE AMINO TRANSFERASE 206 U/L (10-37); PHOSPHORUS 4.1 MG/DL (2.3-4.5)
[2021-03-04 02:22] LABS: GIANT PLATELET FEW; LARGE PLATELETS MODERATE; PLATELET ESTIMATE DECREASED; TOTAL CELLS COUNTED 100
[2021-03-04] MEDS: hydrocortisone sod succ/PF 100mg/2ml inj. IV SCH ×4 (02:45→22:38)
[2021-03-04] MEDS: calcium chloride inj. 10,000 MG in normal saline 500ml IV soln 400 ML IV PRN (02:46)
[2021-03-04] MEDS: mineral oil/petrolatum ophthal oint EACHEYE SCH ×4 (02:46→20:00)
[2021-03-04 03:03] LABS: ABG BASE EXCESS -6.2 mmol/L (-2.0-2.0); ABG HCO3 18.3 mmol/L (22.0-26.0); ABG OXYGEN SATURATION 94.2 % (94-97); ABG PCO2 (T) 32.8 mmHg (35.0-48.0); ABG PO2 (T) 74.2 mmHg (75.0-100.0); FCOHb 0.3 % (0.0-3.9); FMetHb 0.2 % (0.0-1.5); FO2Hb 93.7 % (94-97); PEEP 10 cm H2O; RESPIRATORY RATE 30 b/min; TOTAL HEMOGLOBIN 11.6 G/dl (14.0-18.0)
[2021-03-04] MEDS: bicarb dialysis sol 2k/0 Ca2+ 5,000 ML HE SCH ×7 (03:58→17:33)
[2021-03-04] MEDS: meropenem inj 1 GM in normal saline 100ml IV soln 100 ML IV SCH ×2 (04:00→11:55)
[2021-03-04] MEDS: propofol 1000mg/100ml bottle 100 ML IV SCH ×3 (04:43→12:19)
--- NOTE | 2021-03-04 05:13 | NUR ---
Rounded with Kaylyn Palomo, reviewed, he is reviewing pts blood gas and labs and will order additional ABO and lab tests. reviewed pts low platelets, no new orders at this time regarding platelet replacement
--- NOTE | 2021-03-04 06:14 | NUR ---
report given to rec rn plan of care reviewed
[2021-03-04] MEDS: lactobacillus rhamnosus 10,000 MMU CELLS/CAPSULE PO SCH (07:37)
[2021-03-04] MEDS: pantoprazole 40 MG vial IV SCH (07:37)
[2021-03-04] MEDS: SODIUM ZIRCONIUM CYCLOSILICATE 10 GM POWD.PACK PO SCH (07:37)
[2021-03-04] MEDS: NORepinephrine inj. 32 MG in normal saline 250ml IV soln 218 ML IV SCH ×2 (07:38→22:41)
[2021-03-04 07:45] LABS: HEMOGLOBIN 11.1 g/dl (14.0-17.9); RED BLOOD COUNT 3.46 X10'6 (4.70-6.10)
[2021-03-04 07:47] LABS: HEMATOCRIT 31.2 % (42.0-52.0); MEAN CORPUSCULAR HEMOGLOBIN 32.1 PG (27.0-31.0); MEAN CORPUSCULAR HGB CONC 35.5 g/dL (33.0-36.5); MEAN CORPUSCULAR VOLUME 90.3 FL (78-98); MEAN PLATELET VOLUME 9.7 FL (7.4-10.4); RED CELL DISTRIBUTION WIDTH 13.4 % (11.5-14.5)
[2021-03-04 07:53] LABS: ALBUMIN 1.4 G/DL (3.4-5.0); ANION GAP 12 (8-16); BLOOD UREA NITROGEN 36 MG/DL (7-18); CHLORIDE 103 MMOL/L (99-107); CREATININE 2.12 MG/DL (0.60-1.10); GLUCOSE 127 MG/DL (70-104); MAGNESIUM 2.3 MG/DL (1.5-2.4); PHOSPHORUS 3.1 MG/DL (2.3-4.5); POTASSIUM 4.3 MMOL/L (3.5-5.1); SODIUM 135 MMOL/L (135-145); TOTAL CARBON DIOXIDE 20.2 MMOL/L (24-32); eGFR 33 ML/MIN
[2021-03-04 07:59] LABS: WHITE BLOOD COUNT 39.2 X10'3 (4.5-11.0)
[2021-03-04 08:00] LABS: PLATELET COUNT 12 X10'3 (140-440)
[2021-03-04 08:37] LABS: NUCLEATED RED BLOOD CELLS 2 /100WBC (0-0); PLATELET ESTIMATE DECREASED; TOTAL CELLS COUNTED 100
[2021-03-04] MEDS: VANCOMYCIN 750MG IV in NS 250 ML IV SCH (10:30)
[2021-03-04] MEDS ORDERED: docusate sod 100mg capsule PO SCH (11:29)
[2021-03-04] MEDS ORDERED: docusate sodium 100mg/10ml UD cup PO SCH (11:34)
--- NOTE | 2021-03-04 11:35 | NUR ---
1000- critical care rounds with Dr Hardin, wean peep before FIO2, decrease sedation as tolerated, wean levo before vaso. Plan is for MRI of head when patient more stable 1130- Dr Pulido called to check on patient, stop Lokelma, can pull fluid with CVVH if able.
[2021-03-04] MEDS: docusate sodium 100mg/10ml UD cup OGT SCH ×2 (11:55→22:38)
[2021-03-04] MEDS: vasopressin inj. 40 UNIT in normal saline 50ml IV soln 38 ML IV SCH ×3 (13:17→22:40)
[2021-03-04 13:44] LABS: ALBUMIN 1.4 G/DL (3.4-5.0); ALKALINE PHOSPHATASE 195 IU/L (46-116); ANION GAP 13 (8-16); BILIRUBIN,TOTAL 1.3 MG/DL (0.1-1.0); BLOOD UREA NITROGEN 39 MG/DL (7-18); BUN/CREATININE RATIO 18.3 (5.4-32.0); CALCIUM 7.5 MG/DL (8.5-10.1); CHLORIDE 102 MMOL/L (99-107); CREATININE 2.13 MG/DL (0.60-1.10); MAGNESIUM 2.4 MG/DL (1.5-2.4); SODIUM 135 MMOL/L (135-145); TOTAL CARBON DIOXIDE 20.1 MMOL/L (24-32); eGFR 33 ML/MIN
[2021-03-04 13:46] LABS: MEAN CORPUSCULAR HEMOGLOBIN 31.7 PG (27.0-31.0); MEAN CORPUSCULAR HGB CONC 34.4 g/dL (33.0-36.5); MEAN PLATELET VOLUME 9.8 FL (7.4-10.4)
[2021-03-04 13:49] LABS: HEMATOCRIT 31.5 % (42.0-52.0); HEMOGLOBIN 10.8 g/dl (14.0-17.9); MEAN CORPUSCULAR VOLUME 92.3 FL (78-98); RED BLOOD COUNT 3.41 X10'6 (4.70-6.10); RED CELL DISTRIBUTION WIDTH 13.7 % (11.5-14.5)
[2021-03-04 13:52] LABS: WHITE BLOOD COUNT 43.9 X10'3 (4.5-11.0)
[2021-03-04 13:53] LABS: PLATELET COUNT 12 X10'3 (140-440)
[2021-03-04 13:57] LABS: ALANINE AMINOTRANSFERASE 140 U/L (12-78); ASPARTATE AMINO TRANSFERASE 171 U/L (10-37)
[2021-03-04 14:00] LABS: ALBUMIN/GLOBULIN RATIO 0.3 (1.1-1.5); TOTAL PROTEIN 5.6 G/DL (6.4-8.2)
[2021-03-04 14:01] LABS: GLUCOSE 170 MG/DL (70-104); PHOSPHORUS 2.7 MG/DL (2.3-4.5)
[2021-03-04 14:33] LABS: REACTIVE LYMPHOCYTES % 0 % (0-0); TOTAL CELLS COUNTED 200
[2021-03-04 14:34] LABS: PLATELET ESTIMATE DECREASED; ROULEAUX 2+; SMUDGE CELLS 1+
[2021-03-04 14:36] LABS: LARGE PLATELETS FEW
[2021-03-04 14:39] LABS: TEAR DROP CELLS FEW
[2021-03-04] MEDS ORDERED: magnesium citrate 296ml oral solution PO ONE (17:00)
--- NOTE | 2021-03-04 17:57 | NUR ---
1700- patient linen changed. patient not following commands but is lifting up arms and moving head a little. Restraint order renewed. 1745- CVVH alarming, low venous pressure, low effluent pressure, unable to flush lines, disconnected and notified dialysis for new set up
[2021-03-04 18:51] LABS: BASOPHILS # (AUTO) 0.1 X10'3 (0-0.2); BASOPHILS % (AUTO) 0.3 % (0-1); EOSINOPHILS # (AUTO) 0.1 X10'3 (0-0.9); EOSINOPHILS % (AUTO) 0.1 % (0-6); HEMATOCRIT 30.9 % (42.0-52.0); HEMOGLOBIN 10.6 g/dl (14.0-17.9); LYMPHOCYTES % (AUTO) 2.1 % (21-51); MEAN CORPUSCULAR HEMOGLOBIN 31.3 PG (27.0-31.0); MEAN CORPUSCULAR HGB CONC 34.2 g/dL (33.0-36.5); MEAN CORPUSCULAR VOLUME 91.5 FL (78-98); MEAN PLATELET VOLUME 9.4 FL (7.4-10.4); MONOCYTES # (AUTO) 0.1 X10'3 (0-0.9); MONOCYTES % (AUTO) 0.2 % (2-12); NEUTROPHILS % (AUTO) 97.3 % (42-75); RED BLOOD COUNT 3.38 X10'6 (4.70-6.10); RED CELL DISTRIBUTION WIDTH 13.6 % (11.5-14.5)
[2021-03-04 18:53] LABS: WHITE BLOOD COUNT 46.2 X10'3 (4.5-11.0)
[2021-03-04 18:54] LABS: PLATELET COUNT 11 X10'3 (140-440)
[2021-03-04 19:00] LABS: ALBUMIN 1.4 G/DL (3.4-5.0); ANION GAP 11 (8-16); BLOOD UREA NITROGEN 44 MG/DL (7-18); BUN/CREATININE RATIO 20.5 (5.4-32.0); CHLORIDE 102 MMOL/L (99-107); CREATININE 2.15 MG/DL (0.60-1.10); MAGNESIUM 2.5 MG/DL (1.5-2.4); PHOSPHORUS 2.8 MG/DL (2.3-4.5); SODIUM 135 MMOL/L (135-145); TOTAL CARBON DIOXIDE 21.9 MMOL/L (24-32); eGFR 33 ML/MIN
[2021-03-04 19:02] LABS: GLUCOSE 184 MG/DL (70-104); POTASSIUM 3.8 MMOL/L (3.5-5.1)
[2021-03-04] MEDS: linezolid 600mg tablet PO SCH (22:37)
[2021-03-04] MEDS: lactobacillus rhamnosus 10,000 MMU CELLS/CAPSULE OGT SCH (22:38)
[2021-03-05] VITALS (24 sets, daily range): BP systolic 92–156; BP diastolic 47–78
[2021-03-05] MEDS: bicarb dialysis sol 2k/0 Ca2+ 5,000 ML HE SCH ×3 (00:34→00:36)
[2021-03-05] MEDS: calcium chloride inj. 10,000 MG in normal saline 500ml IV soln 400 ML IV PRN (01:08)
[2021-03-05] MEDS: dexmedetomidine/D5W 100mL 100 ML IV SCH ×4 (02:33→20:49)
[2021-03-05] MEDS: hydrocortisone sod succ/PF 100mg/2ml inj. IV SCH ×3 (02:33→13:57)
[2021-03-05] MEDS: mineral oil/petrolatum ophthal oint EACHEYE SCH ×4 (02:34→20:50)
[2021-03-05 03:19] LABS: ABG BASE EXCESS -2.7 mmol/L (-2.0-2.0); ABG HCO3 21.9 mmol/L (22.0-26.0); ABG OXYGEN SATURATION 95.1 % (94-97); ABG PCO2 (T) 35.6 mmHg (35.0-48.0); ABG PO2 (T) 74.6 mmHg (75.0-100.0); FCOHb 0.3 % (0.0-3.9); FMetHb 0.2 % (0.0-1.5); FO2Hb 94.6 % (94-97); PATIENT TEMPERATURE 35.8; PEEP 8 cm H2O; RESPIRATORY RATE 30 b/min; TOTAL HEMOGLOBIN 10.8 G/dl (14.0-18.0)
[2021-03-05 03:54] LABS: HEMOGLOBIN 10.1 g/dl (14.0-17.9); LYMPHOCYTES # (AUTO) 1.5 X10'3 (1.1-4.8)
[2021-03-05 03:58] LABS: BASOPHILS # (AUTO) 0.1 X10'3 (0-0.2); BASOPHILS % (AUTO) 0.3 % (0-1); EOSINOPHILS # (AUTO) 0.1 X10'3 (0-0.9); EOSINOPHILS % (AUTO) 0.3 % (0-6); HEMATOCRIT 29.1 % (42.0-52.0); LYMPHOCYTES % (AUTO) 3.3 % (21-51); MEAN CORPUSCULAR HEMOGLOBIN 31.3 PG (27.0-31.0); MEAN CORPUSCULAR HGB CONC 34.7 g/dL (33.0-36.5); MEAN CORPUSCULAR VOLUME 90.2 FL (78-98); MONOCYTES # (AUTO) 0.2 X10'3 (0-0.9); MONOCYTES % (AUTO) 0.4 % (2-12); NEUTROPHILS # (AUTO) 43.2 X10'3 (1.8-7.7); NEUTROPHILS % (AUTO) 95.7 % (42-75); RED BLOOD COUNT 3.22 X10'6 (4.70-6.10); RED CELL DISTRIBUTION WIDTH 13.5 % (11.5-14.5)
[2021-03-05 04:07] LABS: ALBUMIN 1.4 G/DL (3.4-5.0); ALBUMIN/GLOBULIN RATIO 0.4 (1.1-1.5); ALKALINE PHOSPHATASE 236 IU/L (46-116); ANION GAP 12 (8-16); BILIRUBIN,TOTAL 0.9 MG/DL (0.1-1.0); BLOOD UREA NITROGEN 45 MG/DL (7-18); BUN/CREATININE RATIO 22.1 (5.4-32.0); CALCIUM 7.5 MG/DL (8.5-10.1); CHLORIDE 103 MMOL/L (99-107); CREATININE 2.04 MG/DL (0.60-1.10); MAGNESIUM 2.7 MG/DL (1.5-2.4); PHOSPHORUS 2.3 MG/DL (2.3-4.5); SODIUM 137 MMOL/L (135-145); TOTAL CARBON DIOXIDE 21.7 MMOL/L (24-32); TOTAL PROTEIN 5.4 G/DL (6.4-8.2); eGFR 35 ML/MIN
[2021-03-05 04:17] LABS: WHITE BLOOD COUNT 45.1 X10'3 (4.5-11.0)
[2021-03-05 04:18] LABS: PLATELET COUNT 13 X10'3 (140-440)
[2021-03-05 04:45] LABS: ALANINE AMINOTRANSFERASE 127 U/L (12-78); ASPARTATE AMINO TRANSFERASE 144 U/L (10-37); GLUCOSE 162 MG/DL (70-104)
[2021-03-05 04:54] LABS: POTASSIUM 3.3 MMOL/L (3.5-5.1)
[2021-03-05 08:00] LABS: BASOPHILS # (AUTO) 0.1 X10'3 (0-0.2); EOSINOPHILS % (AUTO) 0.1 % (0-6); HEMOGLOBIN 10.3 g/dl (14.0-17.9); MEAN CORPUSCULAR HEMOGLOBIN 31.3 PG (27.0-31.0)
[2021-03-05 08:03] LABS: BASOPHILS % (AUTO) 0.2 % (0-1); EOSINOPHILS # (AUTO) 0.1 X10'3 (0-0.9); HEMATOCRIT 30.1 % (42.0-52.0); LYMPHOCYTES # (AUTO) 1.4 X10'3 (1.1-4.8); LYMPHOCYTES % (AUTO) 2.8 % (21-51); MEAN CORPUSCULAR HGB CONC 34.2 g/dL (33.0-36.5); MEAN CORPUSCULAR VOLUME 91.6 FL (78-98); MEAN PLATELET VOLUME 9.3 FL (7.4-10.4); MONOCYTES # (AUTO) 0.2 X10'3 (0-0.9); MONOCYTES % (AUTO) 0.4 % (2-12); NEUTROPHILS # (AUTO) 46.7 X10'3 (1.8-7.7); NEUTROPHILS % (AUTO) 96.5 % (42-75); RED BLOOD COUNT 3.29 X10'6 (4.70-6.10); RED CELL DISTRIBUTION WIDTH 13.4 % (11.5-14.5)
[2021-03-05 08:07] LABS: WHITE BLOOD COUNT 48.4 X10'3 (4.5-11.0)
[2021-03-05 08:08] LABS: PLATELET COUNT 14 X10'3 (140-440)
[2021-03-05 08:11] LABS: ALBUMIN 1.4 G/DL (3.4-5.0); ALKALINE PHOSPHATASE 254 IU/L (46-116); ANION GAP 11 (8-16); BLOOD UREA NITROGEN 44 MG/DL (7-18); BUN/CREATININE RATIO 24.4 (5.4-32.0); CALCIUM 7.1 MG/DL (8.5-10.1); CHLORIDE 103 MMOL/L (99-107); MAGNESIUM 2.6 MG/DL (1.5-2.4); SODIUM 135 MMOL/L (135-145); TOTAL CARBON DIOXIDE 21.2 MMOL/L (24-32); eGFR 40 ML/MIN
[2021-03-05] MEDS: CefTRIAXone 2gm/D5W 50ml BAG 50 ML IV SCH (08:19)
[2021-03-05] MEDS: docusate sodium 100mg/10ml UD cup OGT SCH ×2 (08:19→20:49)
[2021-03-05] MEDS: pantoprazole 40 MG vial IV SCH (08:19)
[2021-03-05] MEDS: lactobacillus rhamnosus 10,000 MMU CELLS/CAPSULE OGT SCH ×2 (08:19→20:49)
[2021-03-05] MEDS: linezolid 600mg tablet PO SCH ×2 (08:20→20:50)
[2021-03-05 08:26] LABS: GLUCOSE 155 MG/DL (70-104); PHOSPHORUS 1.8 MG/DL (2.3-4.5); POTASSIUM 3.5 MMOL/L (3.5-5.1)
[2021-03-05 08:37] LABS: ALANINE AMINOTRANSFERASE 129 U/L (12-78); ALBUMIN/GLOBULIN RATIO 0.4 (1.1-1.5); ASPARTATE AMINO TRANSFERASE 138 U/L (10-37); TOTAL PROTEIN 5.4 G/DL (6.4-8.2)
[2021-03-05] MEDS ORDERED: VANCOMYCIN LEVEL IV ONE (10:30)
[2021-03-05] MEDS ORDERED: albumin (Human) 5% 250ml 250 ML IV ONE ×2 (10:35)
[2021-03-05 11:03] LABS: NUCLEATED RED BLOOD CELLS 2 /100WBC (0-0); PLATELET ESTIMATE DECREASED; SMUDGE CELLS 1+; TOTAL CELLS COUNTED 100
[2021-03-05 11:04] LABS: TEAR DROP CELLS 1+
--- NOTE | 2021-03-05 11:45 | NUR ---
Stacie consult: Low tyramine diet ed not appropriate at this time as pt intubated and receiving TF as sole source of nutrition. Will continue to monitor. Addendum: 03/05/21 at [address] Amended: Links added.
[2021-03-05 13:42] LABS: BASOPHILS # (AUTO) 0.1 X10'3 (0-0.2); BASOPHILS % (AUTO) 0.2 % (0-1); LYMPHOCYTES # (AUTO) 1.5 X10'3 (1.1-4.8)
[2021-03-05 13:46] LABS: ALANINE AMINOTRANSFERASE 127 U/L (12-78); ALBUMIN 1.9 G/DL (3.4-5.0); ALBUMIN/GLOBULIN RATIO 0.5 (1.1-1.5); ALKALINE PHOSPHATASE 241 IU/L (46-116); ANION GAP 10 (8-16); BILIRUBIN,TOTAL 0.8 MG/DL (0.1-1.0); BLOOD UREA NITROGEN 44 MG/DL (7-18); CALCIUM 7.1 MG/DL (8.5-10.1); CHLORIDE 103 MMOL/L (99-107); CREATININE 1.91 MG/DL (0.60-1.10); MAGNESIUM 2.6 MG/DL (1.5-2.4); PHOSPHORUS 1.6 MG/DL (2.3-4.5); SODIUM 136 MMOL/L (135-145); TOTAL CARBON DIOXIDE 22.8 MMOL/L (24-32); TOTAL PROTEIN 6.1 G/DL (6.4-8.2); eGFR 37 ML/MIN
[2021-03-05 13:49] LABS: GLUCOSE 154 MG/DL (70-104); POTASSIUM 3.1 MMOL/L (3.5-5.1)
[2021-03-05 13:53] LABS: HEMATOCRIT 28.2 % (42.0-52.0); HEMOGLOBIN 9.6 g/dl (14.0-17.9); MEAN CORPUSCULAR HEMOGLOBIN 31.3 PG (27.0-31.0); MEAN CORPUSCULAR HGB CONC 34.1 g/dL (33.0-36.5); MEAN CORPUSCULAR VOLUME 91.6 FL (78-98); PLATELET COUNT 14 X10'3 (140-440); RED BLOOD COUNT 3.08 X10'6 (4.70-6.10); RED CELL DISTRIBUTION WIDTH 13.4 % (11.5-14.5); WHITE BLOOD COUNT 45.8 X10'3 (4.5-11.0)
[2021-03-05 13:54] LABS: EOSINOPHILS % (AUTO) 0.1 % (0-6); LYMPHOCYTES % (AUTO) 3.4 % (21-51); MEAN PLATELET VOLUME 10.1 FL (7.4-10.4); MONOCYTES # (AUTO) 0.3 X10'3 (0-0.9); MONOCYTES % (AUTO) 0.6 % (2-12); NEUTROPHILS # (AUTO) 43.9 X10'3 (1.8-7.7); NEUTROPHILS % (AUTO) 95.7 % (42-75)
[2021-03-05 14:00] LABS: ASPARTATE AMINO TRANSFERASE 115 U/L (10-37)
[2021-03-05 16:16] LABS: C DIFF ANTIGEN NEGATIVE (NEGATIVE); C DIFF SPECIMEN=DIARRHEA? ACCEPTABLE; C DIFFICILE TOXINS A&B NEGATIVE (Neg)
--- NOTE | 2021-03-05 18:20 | NUR ---
Problems reprioritized. Patient report given, questions answered & plan of care reviewed with FELY Vargas.
[2021-03-05] MEDS ORDERED: Duosol 4K/3 Ca (w/calcium) 5,000 ML HE SCH ×2 (19:00)
[2021-03-05 19:25] LABS: ALANINE AMINOTRANSFERASE 124 U/L (12-78); ALBUMIN 1.7 G/DL (3.4-5.0); ALBUMIN/GLOBULIN RATIO 0.4 (1.1-1.5); ALKALINE PHOSPHATASE 239 IU/L (46-116); BILIRUBIN,TOTAL 0.7 MG/DL (0.1-1.0); BLOOD UREA NITROGEN 44 MG/DL (7-18); BUN/CREATININE RATIO 24.2 (5.4-32.0); CALCIUM 6.9 MG/DL (8.5-10.1); CHLORIDE 104 MMOL/L (99-107); CREATININE 1.82 MG/DL (0.60-1.10); GLUCOSE 157 MG/DL (70-104); MAGNESIUM 2.5 MG/DL (1.5-2.4); PHOSPHORUS 1.6 MG/DL (2.3-4.5); TOTAL CARBON DIOXIDE 23.4 MMOL/L (24-32); TOTAL PROTEIN 5.7 G/DL (6.4-8.2); eGFR 40 ML/MIN
[2021-03-05 19:34] LABS: ANION GAP 8 (8-16); SODIUM 135 MMOL/L (135-145)
[2021-03-05 19:49] LABS: ASPARTATE AMINO TRANSFERASE 116 U/L (10-37)
[2021-03-05 19:54] LABS: POTASSIUM 2.6 MMOL/L (3.5-5.1)
[2021-03-05] MEDS: propofol 1000mg/100ml bottle 100 ML IV SCH (20:40)
[2021-03-05] MEDS: Duosol 4K/3 Ca (w/calcium) 5,000 ML HE SCH ×2 (20:46→20:47)
[2021-03-06] VITALS (23 sets, daily range): BP systolic 104–157; BP diastolic 54–88
[2021-03-06 00:02] LABS: HEMATOCRIT 26.4 % (42.0-52.0); HEMOGLOBIN 8.9 g/dl (14.0-17.9); MEAN CORPUSCULAR HEMOGLOBIN 30.6 PG (27.0-31.0); MEAN CORPUSCULAR HGB CONC 33.9 g/dL (33.0-36.5); MEAN CORPUSCULAR VOLUME 90.4 FL (78-98); MEAN PLATELET VOLUME 9.5 FL (7.4-10.4); RED BLOOD COUNT 2.92 X10'6 (4.70-6.10); RED CELL DISTRIBUTION WIDTH 13.8 % (11.5-14.5)
[2021-03-06 00:10] LABS: WHITE BLOOD COUNT 55.3 X10'3 (4.5-11.0)
[2021-03-06 00:10] LABS: ALBUMIN 1.7 G/DL (3.4-5.0); ANION GAP 10 (8-16); BLOOD UREA NITROGEN 48 MG/DL (7-18); BUN/CREATININE RATIO 23.9 (5.4-32.0); CHLORIDE 105 MMOL/L (99-107); CREATININE 2.01 MG/DL (0.60-1.10); GLUCOSE 136 MG/DL (70-104); MAGNESIUM 2.6 MG/DL (1.5-2.4); PHOSPHORUS 1.5 MG/DL (2.3-4.5); SODIUM 138 MMOL/L (135-145); TOTAL CARBON DIOXIDE 23.4 MMOL/L (24-32); eGFR 35 ML/MIN
[2021-03-06 00:13] LABS: PLATELET COUNT 17 X10'3 (140-440)
[2021-03-06 00:13] LABS: POTASSIUM 3.2 MMOL/L (3.5-5.1)
[2021-03-06] MEDS: potassium Cl 40MEQ/250ML bag 270 ML IV PRN ×2 (00:18→05:10)
[2021-03-06] MEDS: dexmedetomidine/D5W 100mL 100 ML IV SCH ×5 (01:26→19:59)
[2021-03-06 01:28] LABS: NUCLEATED RED BLOOD CELLS 2 /100WBC (0-0); TOTAL CELLS COUNTED 100
[2021-03-06 01:31] LABS: PLATELET ESTIMATE DECREASED
[2021-03-06 01:32] LABS: HYPOCHROMASIA 1+; POLYCHROMASIA FEW
[2021-03-06 01:34] LABS: TEAR DROP CELLS FEW
[2021-03-06] MEDS: mineral oil/petrolatum ophthal oint EACHEYE SCH ×4 (02:19→20:00)
[2021-03-06] MEDS: hydrocortisone sod succ/PF 100mg/2ml inj. IV SCH ×3 (02:19→16:40)
[2021-03-06 02:45] LABS: ABG BASE EXCESS -1.3 mmol/L (-2.0-2.0); ABG HCO3 23.4 mmol/L (22.0-26.0); ABG PCO2 (T) 37.9 mmHg (35.0-48.0); ABG PO2 (T) 57.5 mmHg (75.0-100.0); FCOHb 0.3 % (0.0-3.9); FMetHb 0.2 % (0.0-1.5); FO2Hb 90.5 % (94-97); PATIENT TEMPERATURE 36.3; PEEP 8 cm H2O; RESPIRATORY RATE 30 b/min; TOTAL HEMOGLOBIN 9.9 G/dl (14.0-18.0)
[2021-03-06 03:06] LABS: HEMOGLOBIN 8.9 g/dl (14.0-17.9); RED BLOOD COUNT 2.91 X10'6 (4.70-6.10)
[2021-03-06 03:11] LABS: BASOPHILS # (AUTO) 0.4 X10'3 (0-0.2); BASOPHILS % (AUTO) 0.8 % (0-1); EOSINOPHILS % (AUTO) 0 % (0-6); HEMATOCRIT 26.4 % (42.0-52.0); LYMPHOCYTES # (AUTO) 2.2 X10'3 (1.1-4.8); LYMPHOCYTES % (AUTO) 4.2 % (21-51); MEAN CORPUSCULAR HEMOGLOBIN 30.4 PG (27.0-31.0); MEAN CORPUSCULAR HGB CONC 33.5 g/dL (33.0-36.5); MEAN CORPUSCULAR VOLUME 90.7 FL (78-98); MEAN PLATELET VOLUME 10.1 FL (7.4-10.4); MONOCYTES # (AUTO) 0.8 X10'3 (0-0.9); MONOCYTES % (AUTO) 1.5 % (2-12); NEUTROPHILS # (AUTO) 49.4 X10'3 (1.8-7.7); NEUTROPHILS % (AUTO) 93.5 % (42-75); RED CELL DISTRIBUTION WIDTH 13.8 % (11.5-14.5)
[2021-03-06 03:25] LABS: PLATELET COUNT 18 X10'3 (140-440); WHITE BLOOD COUNT 52.8 X10'3 (4.5-11.0)
[2021-03-06 03:30] LABS: ALANINE AMINOTRANSFERASE 117 U/L (12-78); ALBUMIN 1.6 G/DL (3.4-5.0); ALBUMIN/GLOBULIN RATIO 0.4 (1.1-1.5); ALKALINE PHOSPHATASE 249 IU/L (46-116); ANION GAP 10 (8-16); ASPARTATE AMINO TRANSFERASE 106 U/L (10-37); BILIRUBIN,TOTAL 0.7 MG/DL (0.1-1.0); BLOOD UREA NITROGEN 46 MG/DL (7-18); BUN/CREATININE RATIO 23.6 (5.4-32.0); CALCIUM 7.2 MG/DL (8.5-10.1); CHLORIDE 104 MMOL/L (99-107); CREATININE 1.95 MG/DL (0.60-1.10); MAGNESIUM 2.3 MG/DL (1.5-2.4); SODIUM 138 MMOL/L (135-145); TOTAL PROTEIN 5.4 G/DL (6.4-8.2); eGFR 37 ML/MIN
[2021-03-06 03:40] LABS: GLUCOSE 136 MG/DL (70-104); PHOSPHORUS 1.2 MG/DL (2.3-4.5); POTASSIUM 3.3 MMOL/L (3.5-5.1)
[2021-03-06] MEDS: Duosol 4K/3 Ca (w/calcium) 5,000 ML HE SCH ×5 (05:04→11:12)
--- NOTE | 2021-03-06 06:19 | NUR ---
Problems reprioritized. Patient report given, questions answered & plan of care reviewed with Yumiko GEIGER.
--- NOTE | 2021-03-06 06:25 | NUR ---
Patient in room ICU 2039. I have received report from FELY Vargas and had the opportunity to ask questions and assume patient care. Patients CVVH machine was clotted off and no longer working. Patient was disconnected. Dialysis nurse called and informed of the disconnect. Dr. Pulido will be notified that the machine keeps clotting off and see if he would like to switch to Hemodialysis.
[2021-03-06] MEDS: CefTRIAXone 2gm/D5W 50ml BAG 50 ML IV SCH (07:22)
[2021-03-06] MEDS: pantoprazole 40 MG vial IV SCH (07:22)
[2021-03-06] MEDS: docusate sodium 100mg/10ml UD cup OGT SCH ×2 (07:22→19:59)
[2021-03-06] MEDS: linezolid 600mg tablet PO SCH ×2 (07:22→19:59)
[2021-03-06] MEDS: lactobacillus rhamnosus 10,000 MMU CELLS/CAPSULE OGT SCH ×2 (07:22→19:59)
--- NOTE | 2021-03-06 07:30 | NUR ---
Dr. Pulido said that patient is to be switched to HD starting today.
[2021-03-06] MEDS ORDERED: heparin 1,000 units/ml 10ml inj HE ONE ×4 (08:05→14:25)
[2021-03-06] MEDS: vasopressin inj. 40 UNIT in normal saline 50ml IV soln 38 ML IV SCH (10:12)
[2021-03-06] MEDS ORDERED: POTASSIUM PHOSHATE inj. 30 MMOL in NORMAL SALINE 500ml IV.SOLN IV ONE (11:05)
--- NOTE | 2021-03-06 11:11 | NUR ---
Reassessment: Pt remains ventilated and sedated; propofol currently at 4.1ml/hr providing 108kcals/d. CVVH to stop and pt to start on HD per MD. Per Sound Truck Operator at rounds pt to undergo extubation trial today. No changes to TF recommendations at this time given potential for extubation. Given Vital High Protein shortage unable to meet minimum protein needs using Vital AF while receiving propofol. Updated TF recs below for both Vital AF and Vital High Protein given propofol/HD. [facility] 03/05, Will continue to monitor for TF tolerance and adjust needs as medically indicated. Recs: 1. Continuous TF using Vital High Protein at 75ml/hr would provide 1800ml volume/day, 1800 kcals, 1512ml water, and 158g protein. May change based on current Propofol rate. 2. IF out of Vital High Protein substitute w/ Vital; AF at 65ml/hr providing 1560ml volume/day, 1872 kcals, 1263ml water, and 117g protein. Unable to meet protein needs without overfeeding using Vital AF while pt receiving propofol. 3. Additional water flush per customer complaint service supervisor on HD 4. PALB QM/Th; daily wts 5. Routine bowel care Addendum: 03/06/21 at [address] Amended: Links added.
[2021-03-06] MEDS: NORepinephrine inj. 32 MG in normal saline 250ml IV soln 218 ML IV SCH (13:25)
[2021-03-06] MEDS ORDERED: sodium phosphate inj. 15 MMOL in dextrose 5%-water 250 ML IV PRN (16:10)
[2021-03-06] MEDS ORDERED: Neutra Phos packet PO PRN (16:10)
[2021-03-06] MEDS ORDERED: sodium phosphate inj. 30 MMOL in dextrose 5%-water 250 ML IV PRN (16:10)
[2021-03-06] MEDS: propofol 1000mg/100ml bottle 100 ML IV SCH (16:41)
[2021-03-06] MEDS: diatr meglu/diatrizoate 30ml oral sol.-(3 dose) bottle PO SCH (21:00)
--- NOTE | 2021-03-06 23:33 | NUR ---
patient successfully completed 2hr SBT from [id number]. Patient awake and anxious, initiating another 2hr SBT at this time (2330)
[2021-03-07] VITALS (23 sets, daily range): BP systolic 88–166; BP diastolic 60–82
[2021-03-07] MEDS: hydrocortisone sod succ/PF 100mg/2ml inj. IV SCH ×3 (01:09→15:17)
[2021-03-07] MEDS: dexmedetomidine/D5W 100mL 100 ML IV SCH ×5 (01:13→21:37)
[2021-03-07] MEDS: mineral oil/petrolatum ophthal oint EACHEYE SCH ×4 (02:00→20:00)
[2021-03-07 03:28] LABS: BASOPHILS # (AUTO) 0.3 X10'3 (0-0.2); EOSINOPHILS # (AUTO) 0.1 X10'3 (0-0.9); EOSINOPHILS % (AUTO) 0.1 % (0-6); RED CELL DISTRIBUTION WIDTH 14.2 % (11.5-14.5)
[2021-03-07 03:33] LABS: BASOPHILS % (AUTO) 0.6 % (0-1); HEMOGLOBIN 8.6 g/dl (14.0-17.9); LYMPHOCYTES % (AUTO) 8.3 % (21-51); MEAN CORPUSCULAR HEMOGLOBIN 30.1 PG (27.0-31.0); MEAN CORPUSCULAR HGB CONC 33.1 g/dL (33.0-36.5); MEAN CORPUSCULAR VOLUME 90.8 FL (78-98); MEAN PLATELET VOLUME 11.2 FL (7.4-10.4); MONOCYTES # (AUTO) 3.2 X10'3 (0-0.9); MONOCYTES % (AUTO) 6.7 % (2-12); NEUTROPHILS # (AUTO) 40.2 X10'3 (1.8-7.7); NEUTROPHILS % (AUTO) 84.3 % (42-75); RED BLOOD COUNT 2.87 X10'6 (4.70-6.10)
[2021-03-07 03:40] LABS: ALANINE AMINOTRANSFERASE 108 U/L (12-78); ALBUMIN 1.5 G/DL (3.4-5.0); ALBUMIN/GLOBULIN RATIO 0.4 (1.1-1.5); ALKALINE PHOSPHATASE 212 IU/L (46-116); ANION GAP 11 (8-16); ASPARTATE AMINO TRANSFERASE 75 U/L (10-37); BILIRUBIN,TOTAL 0.5 MG/DL (0.1-1.0); BLOOD UREA NITROGEN 54 MG/DL (7-18); BUN/CREATININE RATIO 22.2 (5.4-32.0); CALCIUM 6.8 MG/DL (8.5-10.1); CHLORIDE 106 MMOL/L (99-107); CREATININE 2.43 MG/DL (0.60-1.10); GLUCOSE 129 MG/DL (70-104); MAGNESIUM 1.8 MG/DL (1.5-2.4); PHOSPHORUS 3.6 MG/DL (2.3-4.5); POTASSIUM 3.6 MMOL/L (3.5-5.1); SODIUM 142 MMOL/L (135-145); TOTAL CARBON DIOXIDE 24.9 MMOL/L (24-32); TOTAL PROTEIN 5.4 G/DL (6.4-8.2); TRIGLYCERIDES 332 MG/DL (20-135); eGFR 28 ML/MIN
[2021-03-07 03:48] LABS: PLATELET COUNT 50 X10'3 (140-440); WHITE BLOOD COUNT 47.7 X10'3 (4.5-11.0)
[2021-03-07 04:06] LABS: ABG OXYGEN SATURATION 88.7 % (94-97); ABG PCO2 (T) 42.4 mmHg (35.0-48.0); ABG PO2 (T) 63.3 mmHg (75.0-100.0); FCOHb 0.3 % (0.0-3.9); FMetHb 0.4 % (0.0-1.5); FO2Hb 88.1 % (94-97); PATIENT TEMPERATURE 38.2; PEEP 6 cm H2O; RESPIRATORY RATE 30 b/min
[2021-03-07 06:10] LABS: NUCLEATED RED BLOOD CELLS 5 /100WBC (0-0); PLATELET ESTIMATE DECREASED; TOTAL CELLS COUNTED 100
[2021-03-07 06:11] LABS: LARGE PLATELETS FEW; POLYCHROMASIA 2+
[2021-03-07 08:36] LABS: HBSAG SCREEN Negative (Negative)
[2021-03-07] MEDS: pantoprazole 40 MG vial IV SCH (08:44)
[2021-03-07] MEDS: docusate sodium 100mg/10ml UD cup OGT SCH ×2 (08:44→21:34)
[2021-03-07] MEDS: lactobacillus rhamnosus 10,000 MMU CELLS/CAPSULE OGT SCH ×2 (08:44→20:00)
[2021-03-07] MEDS: linezolid 600mg tablet PO SCH ×2 (08:44→21:41)
[2021-03-07] MEDS: propofol 1000mg/100ml bottle 100 ML IV SCH (08:45)
[2021-03-07] MEDS: CefTRIAXone 2gm/D5W 50ml BAG 50 ML IV SCH (08:45)
[2021-03-07] MEDS: diatr meglu/diatrizoate 30ml oral sol.-(3 dose) bottle PO SCH ×2 (08:45→21:41)
[2021-03-07] MEDS ORDERED: heparin 1,000 units/ml 10ml inj HE ONE ×4 (08:50→09:00)
[2021-03-07] MEDS: acetaminophen 325mg/10.15ml oral unit dose solution OGT PRN ×3 (09:05→21:36)
[2021-03-07] MEDS ORDERED: iohexol 300mg/ml 100ml inj. ONE (10:58)
[2021-03-07] MEDS ORDERED: NORepinephrine 8mg/ 250ml NS 250 ML IV ONE (12:46)
[2021-03-07] MEDS: NORepinephrine 8mg/ 250ml NS 250 ML IV SCH ×2 (13:05→21:39)
[2021-03-07 13:07] LABS: ABG BASE EXCESS 0.5 mmol/L (-2.0-2.0); ABG HCO3 26.5 mmol/L (22.0-26.0); ABG OXYGEN SATURATION 98.8 % (94-97); FCOHb 0.3 % (0.0-3.9); FMetHb 0.4 % (0.0-1.5); FO2Hb 98.1 % (94-97); PATIENT TEMPERATURE 37.9; PEEP 8 cm H2O; RESPIRATORY RATE 30 b/min; TIDAL VOLUME 522 mL; TOTAL HEMOGLOBIN 9.9 G/dl (14.0-18.0)
[2021-03-08] VITALS (23 sets, daily range): BP systolic 96–151; BP diastolic 50–84
[2021-03-08] MEDS: hydrocortisone sod succ/PF 100mg/2ml inj. IV SCH ×3 (00:43→20:47)
[2021-03-08] MEDS: dexmedetomidine/D5W 100mL 100 ML IV SCH ×2 (01:49→08:50)
[2021-03-08] MEDS: mineral oil/petrolatum ophthal oint EACHEYE SCH ×4 (02:00→14:00)
[2021-03-08] MEDS: propofol 1000mg/100ml bottle 100 ML IV SCH (03:33)
[2021-03-08 03:34] LABS: EOSINOPHILS % (AUTO) 0 % (0-6); HEMATOCRIT 25.7 % (42.0-52.0); HEMOGLOBIN 8.6 g/dl (14.0-17.9); LYMPHOCYTES # (AUTO) 2.5 X10'3 (1.1-4.8)
[2021-03-08 03:38] LABS: BASOPHILS # (AUTO) 0.1 X10'3 (0-0.2); BASOPHILS % (AUTO) 0.3 % (0-1); LYMPHOCYTES % (AUTO) 5.4 % (21-51); MEAN CORPUSCULAR HEMOGLOBIN 30.6 PG (27.0-31.0); MEAN CORPUSCULAR HGB CONC 33.5 g/dL (33.0-36.5); MEAN CORPUSCULAR VOLUME 91.4 FL (78-98); MEAN PLATELET VOLUME 11.5 FL (7.4-10.4); MONOCYTES # (AUTO) 3.6 X10'3 (0-0.9); MONOCYTES % (AUTO) 7.8 % (2-12); NEUTROPHILS # (AUTO) 39.5 X10'3 (1.8-7.7); NEUTROPHILS % (AUTO) 86.5 % (42-75); PLATELET COUNT 117 X10'3 (140-440); RED BLOOD COUNT 2.81 X10'6 (4.70-6.10); RED CELL DISTRIBUTION WIDTH 14.1 % (11.5-14.5)
[2021-03-08 03:49] LABS: ALANINE AMINOTRANSFERASE 104 U/L (12-78); ALBUMIN 1.5 G/DL (3.4-5.0); ALBUMIN/GLOBULIN RATIO 0.3 (1.1-1.5); ALKALINE PHOSPHATASE 182 IU/L (46-116); ANION GAP 14 (8-16); ASPARTATE AMINO TRANSFERASE 63 U/L (10-37); BILIRUBIN,TOTAL 0.5 MG/DL (0.1-1.0); BLOOD UREA NITROGEN 71 MG/DL (7-18); BUN/CREATININE RATIO 22.5 (5.4-32.0); CALCIUM 6.8 MG/DL (8.5-10.1); CHLORIDE 104 MMOL/L (99-107); CREATININE 3.15 MG/DL (0.60-1.10); GLUCOSE 210 MG/DL (70-104); MAGNESIUM 2.1 MG/DL (1.5-2.4); PHOSPHORUS 4.6 MG/DL (2.3-4.5); POTASSIUM 3.9 MMOL/L (3.5-5.1); SODIUM 142 MMOL/L (135-145); TOTAL CARBON DIOXIDE 24.1 MMOL/L (24-32); TOTAL PROTEIN 6.1 G/DL (6.4-8.2); eGFR 21 ML/MIN
[2021-03-08 03:54] LABS: WHITE BLOOD COUNT 45.6 X10'3 (4.5-11.0)
[2021-03-08 04:10] LABS: ABG BASE EXCESS -1.1 mmol/L (-2.0-2.0); ABG HCO3 23.5 mmol/L (22.0-26.0); ABG OXYGEN SATURATION 96.9 % (94-97); ABG PCO2 (T) 39.8 mmHg (35.0-48.0); ABG PO2 (T) 102.7 mmHg (75.0-100.0); FCOHb 0.3 % (0.0-3.9); FMetHb 0.4 % (0.0-1.5); FO2Hb 96.2 % (94-97); PATIENT TEMPERATURE 37.9; PEEP 8 cm H2O; RESPIRATORY RATE 30 b/min; TOTAL HEMOGLOBIN 9.1 G/dl (14.0-18.0)
[2021-03-08 06:42] LABS: NUCLEATED RED BLOOD CELLS 2 /100WBC (0-0); PLATELET ESTIMATE DECREASED; TOTAL CELLS COUNTED 100
[2021-03-08 06:43] LABS: LARGE PLATELETS FEW; POLYCHROMASIA 2+
[2021-03-08] MEDS: docusate sodium 100mg/10ml UD cup OGT SCH ×2 (08:00→08:50)
[2021-03-08] MEDS: NORepinephrine 8mg/ 250ml NS 250 ML IV SCH (08:00)
[2021-03-08] MEDS: CefTRIAXone 2gm/D5W 50ml BAG 50 ML IV SCH (08:50)
[2021-03-08] MEDS: pantoprazole 40 MG vial IV SCH (08:50)
[2021-03-08] MEDS: lactobacillus rhamnosus 10,000 MMU CELLS/CAPSULE OGT SCH ×2 (08:50→20:48)
[2021-03-08] MEDS: linezolid 600mg tablet PO SCH ×2 (08:50→20:48)
[2021-03-08] MEDS: acetaminophen 325mg/10.15ml oral unit dose solution OGT PRN ×2 (09:06→17:01)
--- NOTE | 2021-03-08 11:19 | NUR ---
Reassessment: Pt remains intubated though goal of extubation today per MD. Propofol off at this time and tolerating TF at goal. Rectal tube -1000ml output 03/05-03/06 w/ stool in bag during rounds pending volume documentation. -5kg past 2 days w/ -5.3L balance on HD. Will continue to monitor. Recs: 1. Continuous TF using Vital High Protein at 75ml/hr would provide 1800ml volume/day, 1800 kcals, 1512ml water, and 158g protein. May change based on current Propofol rate. 2. Additional water flush per customer professional on HD 3. PALB QM/Th; daily wts 4. Routine bowel care 5. upon extubation; advance diet as medically indicated per BLOW MOLD MACHINE OPERATOR/MD to regular Addendum: 03/08/21 at [address] Amended: Links added.
[2021-03-08] MEDS ORDERED: furosemide 40mg/4ml inj IV ONE (14:45)
--- NOTE | 2021-03-08 15:33 | NUR ---
PT ETT TUBE CUFF LEAKING. VENT SHOW PT IS GETTING VOLUMES. PT EXTUABTED AND REINTUBATED. Addendum: 03/08/21 at 1539 by Jose Lucio RT Amended: Links added.
[2021-03-08] MEDS: micafungin inj 100 MG in normal saline 100ml IV soln 100 ML IV SCH (16:08)
[2021-03-08] MEDS: enoxaparin 30mg/0.3ml syringe SUBCUT SCH (17:03)
--- NOTE | 2021-03-08 19:41 | NUR ---
0630 - Pt awakens to voice, tracking, following commands, urinary output has improved 0800 - Sedation titrated off, pt tolerated well, VS stable 0930 - Pt on Spontaneous mode, tolerating well 1000- New orders for ABT and Anticoagulants 1030- Skin inspected with wound care 1100 - Large bowels movements with liquids stool, FMS irrigated 1200- Pt tolerating well 1430- ETT cuff appears to be leaking ; RT , Charge Nurse and MD notified, trouble-shooted, O2 sats WNL. Pt extubated and reintubated with #8 ETT 24@ lip. Light Sedation restarted, Placed on Assist Control. Old tube inspected, does not hold air, discarded. 1530- OG tube inserted , placement verified x3, TF restarted. 1600 - Pt awakens to voice and follows commands, BP stable. 1800- Bedside report given to oncoming nurse
[2021-03-09] VITALS (24 sets, daily range): BP systolic 97–138; BP diastolic 47–73
[2021-03-09 03:35] LABS: BASOPHILS # (AUTO) 0.1 X10'3 (0-0.2); BASOPHILS % (AUTO) 0.2 % (0-1); EOSINOPHILS % (AUTO) 0 % (0-6); HEMOGLOBIN 8.5 g/dl (14.0-17.9); LYMPHOCYTES # (AUTO) 0.6 X10'3 (1.1-4.8); LYMPHOCYTES % (AUTO) 1.8 % (21-51); MEAN CORPUSCULAR HEMOGLOBIN 30.5 PG (27.0-31.0); MEAN CORPUSCULAR HGB CONC 32.8 g/dL (33.0-36.5); MEAN CORPUSCULAR VOLUME 92.8 FL (78-98); MEAN PLATELET VOLUME 10.4 FL (7.4-10.4); MONOCYTES # (AUTO) 0.9 X10'3 (0-0.9); MONOCYTES % (AUTO) 2.6 % (2-12); NEUTROPHILS # (AUTO) 34.8 X10'3 (1.8-7.7); NEUTROPHILS % (AUTO) 95.4 % (42-75); PLATELET COUNT 184 X10'3 (140-440); RED CELL DISTRIBUTION WIDTH 14.5 % (11.5-14.5)
[2021-03-09 03:35] LABS: ABG BASE EXCESS -5.2 mmol/L (-2.0-2.0); ABG HCO3 21.8 mmol/L (22.0-26.0); ABG OXYGEN SATURATION 96.8 % (94-97); ABG PCO2 (T) 53.3 mmHg (35.0-48.0); ABG PO2 (T) 109.8 mmHg (75.0-100.0); FCOHb 0.3 % (0.0-3.9); FMetHb 0.5 % (0.0-1.5); PATIENT TEMPERATURE 38.6; PEEP 5 cm H2O; RESPIRATORY RATE 30 b/min; TOTAL HEMOGLOBIN 9.5 G/dl (14.0-18.0)
[2021-03-09 03:37] LABS: WHITE BLOOD COUNT 36.4 X10'3 (4.5-11.0)
[2021-03-09 03:43] LABS: ALANINE AMINOTRANSFERASE 85 U/L (12-78); ALBUMIN 1.4 G/DL (3.4-5.0); ALBUMIN/GLOBULIN RATIO 0.3 (1.1-1.5); ALKALINE PHOSPHATASE 163 IU/L (46-116); ANION GAP 12 (8-16); ASPARTATE AMINO TRANSFERASE 55 U/L (10-37); BILIRUBIN,TOTAL 0.6 MG/DL (0.1-1.0); BLOOD UREA NITROGEN 112 MG/DL (7-18); BUN/CREATININE RATIO 24.9 (5.4-32.0); CALCIUM 6.2 MG/DL (8.5-10.1); CHLORIDE 105 MMOL/L (99-107); GLUCOSE 192 MG/DL (70-104); MAGNESIUM 2.3 MG/DL (1.5-2.4); POTASSIUM 4.8 MMOL/L (3.5-5.1); SODIUM 141 MMOL/L (135-145); TOTAL CARBON DIOXIDE 23.8 MMOL/L (24-32); TOTAL PROTEIN 5.9 G/DL (6.4-8.2); eGFR 14 ML/MIN
[2021-03-09 03:46] LABS: PHOSPHORUS 9.5 MG/DL (2.3-4.5)
[2021-03-09 06:01] LABS: TOTAL CELLS COUNTED 100
[2021-03-09 06:05] LABS: PLATELET ESTIMATE NORMAL
[2021-03-09 06:06] LABS: LARGE PLATELETS FEW; SMUDGE CELLS 2+
[2021-03-09 06:08] LABS: POLYCHROMASIA 1+
[2021-03-09 06:11] LABS: HYPERSEGMENTED NEUTROPHILS FEW
[2021-03-09] MEDS ORDERED: heparin 1,000 units/ml 10ml inj HE ONE ×4 (08:00)
[2021-03-09] MEDS ORDERED: albumin (human) 25% 100ml IV 100 ML IV PRN ×2 (08:00)
[2021-03-09] MEDS ORDERED: EPOETIN ALFA-EPBX 20,000 UNIT/ML 1 ML MDV IV ONE ×2 (08:00)
[2021-03-09] MEDS: docusate sodium 100mg/10ml UD cup OGT SCH ×2 (08:00→21:25)
[2021-03-09] MEDS: mineral oil/petrolatum ophthal oint EACHEYE SCH ×4 (08:00→21:25)
[2021-03-09] MEDS: enoxaparin 30mg/0.3ml syringe SUBCUT SCH (08:32)
[2021-03-09] MEDS: pantoprazole 40 MG vial IV SCH (08:32)
[2021-03-09] MEDS: hydrocortisone sod succ/PF 100mg/2ml inj. IV SCH ×2 (08:32→21:24)
[2021-03-09] MEDS: linezolid 600mg tablet PO SCH ×2 (08:32→21:25)
[2021-03-09] MEDS: lactobacillus rhamnosus 10,000 MMU CELLS/CAPSULE OGT SCH ×2 (08:32→21:23)
[2021-03-09] MEDS: CefTRIAXone 2gm/D5W 50ml BAG 50 ML IV SCH (08:33)
[2021-03-09] MEDS: micafungin inj 100 MG in normal saline 100ml IV soln 100 ML IV SCH (08:33)
[2021-03-09] MEDS ORDERED: glucagon, human recombinant 1mg kit SUBCUT PRN (10:30)
[2021-03-09] MEDS ORDERED: dextrose ORAL solution 15 GM/59 ML bottle PO PRN ×2 (10:30)
[2021-03-09] MEDS ORDERED: MESSAGE TO PHARMACY PO ONE (10:30)
[2021-03-09] MEDS ORDERED: dextrose 50%-water 50ml dispensing syringe IV PRN ×2 (10:30)
[2021-03-09] MEDS: NORepinephrine 8mg/ 250ml NS 250 ML IV SCH (13:18)
[2021-03-09] MEDS: insulin regular, human U-100 3ml vial - multi-dose SQ SCH (15:01)
[2021-03-09] MEDS: acetaminophen 325mg/10.15ml oral unit dose solution OGT PRN ×2 (15:30→21:35)
[2021-03-09] MEDS: dexmedetomidine/D5W 100mL 100 ML IV SCH (17:54)
[2021-03-09] MEDS: propofol 1000mg/100ml bottle 100 ML IV SCH (21:41)
[2021-03-10] VITALS (24 sets, daily range): BP systolic 110–145; BP diastolic 60–77
[2021-03-10] MEDS: mineral oil/petrolatum ophthal oint EACHEYE SCH ×4 (02:00→20:22)
[2021-03-10] MEDS: acetaminophen 325mg/10.15ml oral unit dose solution OGT PRN (03:01)
[2021-03-10 03:02] LABS: ABG BASE EXCESS -1.4 mmol/L (-2.0-2.0); ABG HCO3 24.8 mmol/L (22.0-26.0); ABG OXYGEN SATURATION 95.4 % (94-97); ABG PCO2 (T) 51.3 mmHg (35.0-48.0); ABG PO2 (T) 92.5 mmHg (75.0-100.0); FCOHb 0.3 % (0.0-3.9); FMetHb 0.3 % (0.0-1.5); FO2Hb 94.8 % (94-97); PATIENT TEMPERATURE 38.1; PEEP 5 cm H2O; RESPIRATORY RATE 30 b/min; TOTAL HEMOGLOBIN 9.2 G/dl (14.0-18.0)
[2021-03-10 03:07] LABS: BASOPHILS % (AUTO) 0.1 % (0-1); EOSINOPHILS % (AUTO) 0 % (0-6); HEMATOCRIT 25.3 % (42.0-52.0); HEMOGLOBIN 8.3 g/dl (14.0-17.9); MEAN CORPUSCULAR HEMOGLOBIN 30.3 PG (27.0-31.0); MEAN CORPUSCULAR HGB CONC 32.7 g/dL (33.0-36.5); MEAN CORPUSCULAR VOLUME 92.5 FL (78-98); MEAN PLATELET VOLUME 10.1 FL (7.4-10.4); MONOCYTES # (AUTO) 1.3 X10'3 (0-0.9); MONOCYTES % (AUTO) 3.9 % (2-12); NEUTROPHILS # (AUTO) 30.4 X10'3 (1.8-7.7); PLATELET COUNT 246 X10'3 (140-440); RED BLOOD COUNT 2.74 X10'6 (4.70-6.10); RED CELL DISTRIBUTION WIDTH 14.5 % (11.5-14.5)
[2021-03-10 03:12] LABS: WHITE BLOOD COUNT 32.7 X10'3 (4.5-11.0)
[2021-03-10 03:16] LABS: ALANINE AMINOTRANSFERASE 71 U/L (12-78); ALBUMIN 1.3 G/DL (3.4-5.0); ALBUMIN/GLOBULIN RATIO 0.3 (1.1-1.5); ALKALINE PHOSPHATASE 179 IU/L (46-116); ANION GAP 16 (8-16); ASPARTATE AMINO TRANSFERASE 40 U/L (10-37); BILIRUBIN,TOTAL 0.5 MG/DL (0.1-1.0); BLOOD UREA NITROGEN 94 MG/DL (7-18); BUN/CREATININE RATIO 25.3 (5.4-32.0); CALCIUM 6.5 MG/DL (8.5-10.1); CHLORIDE 100 MMOL/L (99-107); CREATININE 3.72 MG/DL (0.60-1.10); PHOSPHORUS 7.1 MG/DL (2.3-4.5); POTASSIUM 4.6 MMOL/L (3.5-5.1); SODIUM 140 MMOL/L (135-145); TOTAL CARBON DIOXIDE 23.9 MMOL/L (24-32); TOTAL PROTEIN 6.4 G/DL (6.4-8.2); eGFR 17 ML/MIN
[2021-03-10 04:30] LABS: GLUCOSE 186 MG/DL (70-104); MAGNESIUM 2.3 MG/DL (1.5-2.4)
[2021-03-10 04:32] LABS: HYPERSEGMENTED NEUTROPHILS FEW; LARGE PLATELETS FEW; PLATELET ESTIMATE NORMAL; POLYCHROMASIA 1+; SMUDGE CELLS 1+; TOTAL CELLS COUNTED 100
[2021-03-10 04:33] LABS: SCHISTOCYTES FEW; TOXIC GRANULATION 1+; TOXIC VACUOLATION FEW
[2021-03-10] MEDS: NORepinephrine 8mg/ 250ml NS 250 ML IV SCH (05:29)
[2021-03-10] MEDS: dexmedetomidine/D5W 100mL 100 ML IV SCH (06:00)
--- NOTE | 2021-03-10 07:24 | NUR ---
Tylenol and diprivan reassessment not done of previous shift
--- NOTE | 2021-03-10 07:26 | NUR ---
Patient in room ICU 2039. I have received report from Yanci GEIGER and had the opportunity to ask questions and assume patient care.
[2021-03-10] MEDS: docusate sodium 100mg/10ml UD cup OGT SCH ×2 (08:00→20:33)
[2021-03-10] MEDS: linezolid 600mg tablet PO SCH ×2 (08:35→20:32)
[2021-03-10] MEDS: lactobacillus rhamnosus 10,000 MMU CELLS/CAPSULE OGT SCH ×2 (08:35→20:33)
[2021-03-10] MEDS: pantoprazole 40 MG vial IV SCH (08:35)
[2021-03-10] MEDS: hydrocortisone sod succ/PF 100mg/2ml inj. IV SCH ×2 (08:36→20:33)
[2021-03-10] MEDS: CefTRIAXone 2gm/D5W 50ml BAG 50 ML IV SCH (08:36)
[2021-03-10] MEDS: enoxaparin 30mg/0.3ml syringe SUBCUT SCH (08:36)
[2021-03-10] MEDS: micafungin inj 100 MG in normal saline 100ml IV soln 100 ML IV SCH (08:37)
[2021-03-10] MEDS: insulin regular, human U-100 3ml vial - multi-dose SQ SCH (08:43)
[2021-03-10] MEDS: dexmedetomidin/NS 400mcg/100ml 100 ML IV SCH (10:15)
--- NOTE | 2021-03-10 18:05 | NUR ---
Problems reprioritized. Patient report given, questions answered & plan of care reviewed with Jagruti GEIGER.
[2021-03-11] VITALS (24 sets, daily range): BP systolic 90–143; BP diastolic 53–84
[2021-03-11] MEDS: mineral oil/petrolatum ophthal oint EACHEYE SCH ×4 (02:00→20:36)
[2021-03-11 03:04] LABS: BASOPHILS # (AUTO) 0.1 X10'3 (0-0.2); BASOPHILS % (AUTO) 0.3 % (0-1); EOSINOPHILS % (AUTO) 0 % (0-6); HEMATOCRIT 23.9 % (42.0-52.0); HEMOGLOBIN 7.8 g/dl (14.0-17.9); LYMPHOCYTES # (AUTO) 0.7 X10'3 (1.1-4.8); LYMPHOCYTES % (AUTO) 2.2 % (21-51); MEAN CORPUSCULAR HEMOGLOBIN 30.3 PG (27.0-31.0); MEAN CORPUSCULAR HGB CONC 32.6 g/dL (33.0-36.5); MEAN CORPUSCULAR VOLUME 92.9 FL (78-98); MEAN PLATELET VOLUME 9.8 FL (7.4-10.4); MONOCYTES # (AUTO) 1.4 X10'3 (0-0.9); MONOCYTES % (AUTO) 4.5 % (2-12); NEUTROPHILS # (AUTO) 28.9 X10'3 (1.8-7.7); PLATELET COUNT 323 X10'3 (140-440); RED BLOOD COUNT 2.58 X10'6 (4.70-6.10); RED CELL DISTRIBUTION WIDTH 14.8 % (11.5-14.5)
[2021-03-11 03:56] LABS: ALANINE AMINOTRANSFERASE 60 U/L (12-78); ALBUMIN 1.2 G/DL (3.4-5.0); ALBUMIN/GLOBULIN RATIO 0.2 (1.1-1.5); ALKALINE PHOSPHATASE 123 IU/L (46-116); ANION GAP 16 (8-16); ASPARTATE AMINO TRANSFERASE 36 U/L (10-37); BILIRUBIN,TOTAL 0.3 MG/DL (0.1-1.0); BLOOD UREA NITROGEN 137 MG/DL (7-18); BUN/CREATININE RATIO 31.9 (5.4-32.0); CHLORIDE 101 MMOL/L (99-107); CREATININE 4.29 MG/DL (0.60-1.10); GLUCOSE 235 MG/DL (70-104); MAGNESIUM 2.5 MG/DL (1.5-2.4); PHOSPHORUS 8.4 MG/DL (2.3-4.5); POTASSIUM 4.6 MMOL/L (3.5-5.1); PREALBUMIN 13.7 MG/DL (19-36); SODIUM 140 MMOL/L (135-145); TOTAL CARBON DIOXIDE 22.6 MMOL/L (24-32); TOTAL PROTEIN 6.7 G/DL (6.4-8.2); eGFR 15 ML/MIN
[2021-03-11 04:06] LABS: ABG BASE EXCESS -5.3 mmol/L (-2.0-2.0); ABG HCO3 22.1 mmol/L (22.0-26.0); ABG OXYGEN SATURATION 90.7 % (94-97); ABG PCO2 (T) 50.9 mmHg (35.0-48.0); ABG PO2 (T) 66.6 mmHg (75.0-100.0); FCOHb 0.3 % (0.0-3.9); FMetHb 0.4 % (0.0-1.5); FO2Hb 90.1 % (94-97); PATIENT TEMPERATURE 36.2; PEEP 5 cm H2O; RESPIRATORY RATE 26 b/min; TOTAL HEMOGLOBIN 9.2 G/dl (14.0-18.0)
[2021-03-11 05:32] LABS: PLATELET ESTIMATE NORMAL; TOTAL CELLS COUNTED 100
[2021-03-11 05:33] LABS: HYPERSEGMENTED NEUTROPHILS FEW; POLYCHROMASIA 1+; SMUDGE CELLS FEW
[2021-03-11 05:34] LABS: LARGE PLATELETS FEW
[2021-03-11] MEDS: CALCIUM GLUC 1gm/50ml NACL,iso 50 ML IV SCH ×2 (06:09→09:26)
[2021-03-11] MEDS ORDERED: albumin (human) 25% 100ml IV 100 ML IV PRN (07:25)
[2021-03-11] MEDS ORDERED: heparin 1,000unit/ml 10ml vial 10 ML IV ONE (07:25)
[2021-03-11] MEDS ORDERED: heparin 1,000 units/ml 10ml inj IV ONE (07:25)
[2021-03-11] MEDS ORDERED: heparin 1,000 units/ml 10ml inj HE ONE ×2 (07:30)
[2021-03-11] MEDS: hydrocortisone sod succ/PF 100mg/2ml inj. IV SCH ×2 (08:00→20:29)
[2021-03-11] MEDS: docusate sodium 100mg/10ml UD cup OGT SCH ×2 (08:00→20:29)
[2021-03-11] MEDS: lactobacillus rhamnosus 10,000 MMU CELLS/CAPSULE OGT SCH ×2 (08:00→20:30)
[2021-03-11] MEDS: linezolid 600mg tablet PO SCH ×2 (08:00→20:36)
[2021-03-11] MEDS: micafungin inj 100 MG in normal saline 100ml IV soln 100 ML IV SCH (08:00)
[2021-03-11] MEDS: pantoprazole 40 MG vial IV SCH (09:27)
[2021-03-11] MEDS: CefTRIAXone 2gm/D5W 50ml BAG 50 ML IV SCH (09:28)
[2021-03-11] MEDS: enoxaparin 30mg/0.3ml syringe SUBCUT SCH (09:28)
--- NOTE | 2021-03-11 11:28 | NUR ---
Reassessment: Pt remains intubated and sedated, Propofol currently at 3.74ml/hr providing 98kcals/day. TF continues to run at goal of Vital High Protein and 75ml/hr. Rectal tube -900ml output 03/10. Pt to receive next HD on 03/12 per MD note. Will continue to monitor. Recs: 1. Continuous TF using Vital High Protein at 75ml/hr would provide 1800ml volume/day, 1800 kcals, 1512ml water, and 158g protein. May change based on current Propofol rate. 2. Additional water flush per physician locums urgent care on HD 3. PALB QM/Th; daily wts 4. Routine bowel care 5. upon extubation; advance diet as medically indicated per INTERNATIONAL ACCOUNT REPRESENTATIVE/MD to regular Addendum: 03/11/21 at [address] Amended: Links added.
[2021-03-11] MEDS: insulin regular, human U-100 3ml vial - multi-dose SQ SCH (20:34)
[2021-03-12] VITALS (28 sets, daily range): BP systolic 87–176; BP diastolic 50–84
[2021-03-12] MEDS: propofol 1000mg/100ml bottle 100 ML IV SCH (01:24)
[2021-03-12] MEDS: mineral oil/petrolatum ophthal oint EACHEYE SCH ×4 (02:00→20:00)
[2021-03-12 02:41] LABS: ABG BASE EXCESS 0.5 mmol/L (-2.0-2.0); ABG HCO3 24.1 mmol/L (22.0-26.0); ABG OXYGEN SATURATION 97.9 % (94-97); ABG PCO2 (T) 35.6 mmHg (35.0-48.0); ABG PO2 (T) 116.6 mmHg (75.0-100.0); FCOHb 0.3 % (0.0-3.9); FMetHb 0.5 % (0.0-1.5); FO2Hb 97.1 % (94-97); PATIENT TEMPERATURE 37.9; RESPIRATORY RATE 30 b/min; TOTAL HEMOGLOBIN 7.5 G/dl (14.0-18.0)
[2021-03-12 03:05] LABS: ALANINE AMINOTRANSFERASE 44 U/L (12-78); ALBUMIN 1.1 G/DL (3.4-5.0); ALBUMIN/GLOBULIN RATIO 0.2 (1.1-1.5); ALKALINE PHOSPHATASE 106 IU/L (46-116); ANION GAP 12 (8-16); ASPARTATE AMINO TRANSFERASE 33 U/L (10-37); BILIRUBIN,TOTAL 0.5 MG/DL (0.1-1.0); BLOOD UREA NITROGEN 77 MG/DL (7-18); CALCIUM 6.4 MG/DL (8.5-10.1); CHLORIDE 103 MMOL/L (99-107); CREATININE 2.41 MG/DL (0.60-1.10); GLUCOSE 141 MG/DL (70-104); MAGNESIUM 1.9 MG/DL (1.5-2.4); PHOSPHORUS 5.2 MG/DL (2.3-4.5); POTASSIUM 3.8 MMOL/L (3.5-5.1); SODIUM 141 MMOL/L (135-145); TOTAL CARBON DIOXIDE 26.2 MMOL/L (24-32); TOTAL PROTEIN 6.1 G/DL (6.4-8.2); eGFR 29 ML/MIN
[2021-03-12 03:06] LABS: BASOPHILS % (AUTO) 0.1 % (0-1); EOSINOPHILS % (AUTO) 0.1 % (0-6); LYMPHOCYTES % (AUTO) 4.6 % (21-51); MEAN CORPUSCULAR HEMOGLOBIN 30.9 PG (27.0-31.0); MEAN CORPUSCULAR HGB CONC 33.8 g/dL (33.0-36.5); MEAN CORPUSCULAR VOLUME 91.2 FL (78-98); MEAN PLATELET VOLUME 9.2 FL (7.4-10.4); MONOCYTES # (AUTO) 1.1 X10'3 (0-0.9); MONOCYTES % (AUTO) 5.1 % (2-12); NEUTROPHILS # (AUTO) 20.2 X10'3 (1.8-7.7); NEUTROPHILS % (AUTO) 90.1 % (42-75); PLATELET COUNT 354 X10'3 (140-440); RED BLOOD COUNT 2.27 X10'6 (4.70-6.10); RED CELL DISTRIBUTION WIDTH 14.1 % (11.5-14.5); WHITE BLOOD COUNT 22.4 X10'3 (4.5-11.0)
[2021-03-12 03:14] LABS: HEMATOCRIT 20.7 % (42.0-52.0)
[2021-03-12] MEDS: dexmedetomidin/NS 400mcg/100ml 100 ML IV SCH ×2 (03:30→21:49)
[2021-03-12] MEDS: lactobacillus rhamnosus 10,000 MMU CELLS/CAPSULE OGT SCH ×2 (08:00→20:55)
[2021-03-12] MEDS: linezolid 600mg tablet PO SCH ×2 (08:00→20:55)
[2021-03-12] MEDS: docusate sodium 100mg/10ml UD cup OGT SCH ×2 (08:00→22:00)
[2021-03-12] MEDS: pantoprazole 40 MG vial IV SCH (08:27)
[2021-03-12] MEDS: CefTRIAXone 2gm/D5W 50ml BAG 50 ML IV SCH (08:27)
[2021-03-12] MEDS: micafungin inj 100 MG in normal saline 100ml IV soln 100 ML IV SCH (08:28)
[2021-03-12] MEDS: enoxaparin 30mg/0.3ml syringe SUBCUT SCH (08:28)
[2021-03-12] MEDS ORDERED: heparin 1,000unit/ml 10ml vial 10 ML ONE (08:30)
[2021-03-12] MEDS ORDERED: LIDOcaine 1%/PF 5ML 10 MG/ML VIAL ONE (08:30)
[2021-03-12] MEDS ORDERED: albumin (Human) 5% 250ml 250 ML IV STA (08:36)
[2021-03-12] MEDS ORDERED: albumin (Human) 5% 250ml 250 ML IV ONE (08:40)
[2021-03-12] MEDS: hydrocortisone sod succ/PF 100mg/2ml inj. IV SCH ×2 (09:13→20:55)
--- NOTE | 2021-03-12 09:32 | NUR ---
FSBS rechecked 97. Angio team at bedside, pt disconnected and placed on portable monitor and taken for tunnel dialysis catheter.Pt bagged for transported, ventilator in angio suite already
--- NOTE | 2021-03-12 11:19 | NUR ---
RECEIVED PT BACK FROM ANGIO IN STABLE CONDITION. tE Addendum: 03/12/21 at 1123 by Va Whitley RN TEMPORARY DIALYSIS CATHETER INSERTED IN RIGHT NECK AREA. NO BRUISING OR BLEEDING NOTED. LEFT FEMORAL DIALYSIS CATHETER REMAINS INPLACE. AWAITING ORDERS FOR REMOVAL. RIGHT FEMORAL ARTERIAL LINE REMOVED BY RN. HELD FOR 15 MINUTES, NO ACTIVE BLEEDED NOTED, NO HEMATOMA OR BRUISING NOTED, AREA CLEANED AND OPSITE DRESSING APPLIED. FREQUENT MONITORING AT THIS TIME.
--- NOTE | 2021-03-12 14:00 | NUR ---
LEFT 12.5 FR DIALYSIS CATHETER PULLED PER NAVY FIGHTER PILOT AND CHARGE NURSE PARKER GEIGER. PRESSURE HELD FOR 15 MINUTES, SOME OOZING NOTED, ADDITIONAL 5 MINUTES OF PRESSURE AND SAND BAG APPLIED.
--- NOTE | 2021-03-12 15:31 | NUR ---
BILATERAL GROINS CHECKED, CLEAR, NO SIGNS OF HEMATOMA OR BLEEDING NOTED, PT UNABLE TO FOLLOW DIRECTIONS TO KEEP LEGS STRAIGHT, BUT SIGNS OF ISSUES.
[2021-03-12] MEDS: acetaminophen 325mg/10.15ml oral unit dose solution OGT PRN (18:49)
[2021-03-13] VITALS (24 sets, daily range): BP systolic 98–134; BP diastolic 40–78
[2021-03-13 02:33] LABS: ABG HCO3 23.9 mmol/L (22.0-26.0); ABG OXYGEN SATURATION 94.3 % (94-97); ABG PCO2 (T) 36.2 mmHg (35.0-48.0); ABG PO2 (T) 76.8 mmHg (75.0-100.0); ALLEN'S TEST POSITIVE; FCOHb 0.1 % (0.0-3.9); FMetHb 0.3 % (0.0-1.5); FO2Hb 93.9 % (94-97); PATIENT TEMPERATURE 37.5; PEEP 5 cm H2O; RESPIRATORY RATE 28 b/min; TOTAL HEMOGLOBIN 8.9 G/dl (14.0-18.0)
[2021-03-13 03:12] LABS: BASOPHILS # (AUTO) 0.1 X10'3 (0-0.2); BASOPHILS % (AUTO) 0.3 % (0-1); EOSINOPHILS % (AUTO) 0.2 % (0-6); HEMATOCRIT 24.2 % (42.0-52.0); HEMOGLOBIN 8.3 g/dl (14.0-17.9); LYMPHOCYTES # (AUTO) 0.5 X10'3 (1.1-4.8); LYMPHOCYTES % (AUTO) 3.1 % (21-51); MEAN CORPUSCULAR HEMOGLOBIN 30.5 PG (27.0-31.0); MEAN CORPUSCULAR HGB CONC 34.2 g/dL (33.0-36.5); MEAN CORPUSCULAR VOLUME 89.2 FL (78-98); MEAN PLATELET VOLUME 8.8 FL (7.4-10.4); MONOCYTES # (AUTO) 1.1 X10'3 (0-0.9); MONOCYTES % (AUTO) 6.5 % (2-12); NEUTROPHILS # (AUTO) 15.5 X10'3 (1.8-7.7); NEUTROPHILS % (AUTO) 89.9 % (42-75); PLATELET COUNT 392 X10'3 (140-440); RED BLOOD COUNT 2.71 X10'6 (4.70-6.10); RED CELL DISTRIBUTION WIDTH 14.6 % (11.5-14.5); WHITE BLOOD COUNT 17.2 X10'3 (4.5-11.0)
[2021-03-13 03:23] LABS: ALBUMIN 1.4 G/DL (3.4-5.0); ANION GAP 12 (8-16); BLOOD UREA NITROGEN 97 MG/DL (7-18); BUN/CREATININE RATIO 35.9 (5.4-32.0); CHLORIDE 107 MMOL/L (99-107); GLUCOSE 173 MG/DL (70-104); MAGNESIUM 1.9 MG/DL (1.5-2.4); PHOSPHORUS 5.2 MG/DL (2.3-4.5); POTASSIUM 3.4 MMOL/L (3.5-5.1); SODIUM 145 MMOL/L (135-145); TOTAL CARBON DIOXIDE 25.7 MMOL/L (24-32); eGFR 25 ML/MIN
[2021-03-13] MEDS: mineral oil/petrolatum ophthal oint EACHEYE SCH ×4 (06:00→20:51)
--- NOTE | 2021-03-13 06:00 | NUR ---
Patient in room ICU 2039. I have received report from night nurse and had the opportunity to ask questions and assume patient care.
[2021-03-13] MEDS: dexmedetomidin/NS 400mcg/100ml 100 ML IV SCH ×3 (07:25→16:44)
[2021-03-13] MEDS: micafungin inj 100 MG in normal saline 100ml IV soln 100 ML IV SCH (07:26)
[2021-03-13] MEDS: enoxaparin 30mg/0.3ml syringe SUBCUT SCH (07:27)
[2021-03-13] MEDS: linezolid 600mg tablet PO SCH ×2 (07:27→20:00)
[2021-03-13] MEDS: hydrocortisone sod succ/PF 100mg/2ml inj. IV SCH ×2 (07:27→20:53)
[2021-03-13] MEDS: CefTRIAXone 2gm/D5W 50ml BAG 50 ML IV SCH (07:28)
[2021-03-13] MEDS: lactobacillus rhamnosus 10,000 MMU CELLS/CAPSULE OGT SCH ×2 (07:28→20:00)
[2021-03-13] MEDS: pantoprazole 40 MG vial IV SCH (07:56)
--- NOTE | 2021-03-13 09:45 | NUR ---
pt self extubated hiself, o2 sats in the 70's. pt ventilated with ambu bag, 100 NRB applied, breathing treatment with racemic epi given by RT with good results. Pt able to maintain sats and was not reintubated at this time
[2021-03-13] MEDS ORDERED: racepinephrine 11.25mg/0.5ml nebule ONE (10:34)
[2021-03-13] MEDS ORDERED: magnesium 2GM in 50ml NS 50 ML IV ONE (10:55)
--- NOTE | 2021-03-13 14:45 | NUR ---
Dr Hutchins notified of inability to put PICC line in today and to discuss vascular access alteratives. She said that he would not need a new PICC but the yeast in the blood may have been there before the PICC was inserted. She wanted the groin lines removed. She requested a midline to be placed instead of the picc. Addendum: 03/13/21 at 1734 by Elvi Mcknight RN Amended: Links added.
--- NOTE | 2021-03-13 15:30 | NUR ---
Spoke with Dr Kern regarding picc line ordered and Dr Mistry recommendations and putting the PICC or midline in tomorrow but he was unable to speak due to current conditions in the ICU. Spoke with nursing and WBC count was going down. PICC line will be discussed with Dr Kern in the AM. Addendum: 03/13/21 at 1734 by Elvi Mcknight RN Amended: Links added.
--- NOTE | 2021-03-13 19:00 | NUR ---
Alert and responsive. Speech hoarse, but appropriate to conversation. Strong productive cough @ intervals. Encouraging coughing and deep breathing. Pulling oxygen mask off @ intervals, encouraging pt to keep oxygen on.
[2021-03-14] VITALS (25 sets, daily range): BP systolic 113–150; BP diastolic 69–91
[2021-03-14] MEDS: mineral oil/petrolatum ophthal oint EACHEYE SCH ×4 (02:00→20:34)
[2021-03-14] MEDS: dexmedetomidin/NS 400mcg/100ml 100 ML IV SCH (03:17)
[2021-03-14 08:31] LABS: ABG BASE EXCESS 2.5 mmol/L (-2.0-2.0); ABG HCO3 26.4 mmol/L (22.0-26.0); ABG OXYGEN SATURATION 88.4 % (94-97); ABG PCO2 (T) 38.1 mmHg (35.0-48.0); ABG PO2 (T) 54.6 mmHg (75.0-100.0); ALLEN'S TEST POSITIVE; FCOHb 0.3 % (0.0-3.9); FLOW 2 L/min; FMetHb 0.3 % (0.0-1.5); FO2Hb 87.9 % (94-97); TOTAL HEMOGLOBIN 10.8 G/dl (14.0-18.0)
[2021-03-14] MEDS: hydrocortisone sod succ/PF 100mg/2ml inj. IV SCH ×2 (09:26→20:34)
[2021-03-14] MEDS: lactobacillus rhamnosus 10,000 MMU CELLS/CAPSULE OGT SCH ×2 (09:26→20:33)
[2021-03-14] MEDS: pantoprazole 40 MG vial IV SCH (09:26)
[2021-03-14] MEDS: linezolid 600mg tablet PO SCH ×2 (09:26→20:33)
[2021-03-14] MEDS: micafungin inj 100 MG in normal saline 100ml IV soln 100 ML IV SCH (09:27)
[2021-03-14] MEDS: enoxaparin 30mg/0.3ml syringe SUBCUT SCH (09:27)
[2021-03-14] MEDS: CefTRIAXone 2gm/D5W 50ml BAG 50 ML IV SCH (09:27)
[2021-03-14 09:48] LABS: ALANINE AMINOTRANSFERASE 46 U/L (12-78); ALBUMIN 1.5 G/DL (3.4-5.0); ALBUMIN/GLOBULIN RATIO 0.3 (1.1-1.5); ALKALINE PHOSPHATASE 103 IU/L (46-116); ANION GAP 13 (8-16); ASPARTATE AMINO TRANSFERASE 34 U/L (10-37); BILIRUBIN,TOTAL 0.5 MG/DL (0.1-1.0); BLOOD UREA NITROGEN 92 MG/DL (7-18); BUN/CREATININE RATIO 47.2 (5.4-32.0); CALCIUM 6.2 MG/DL (8.5-10.1); CHLORIDE 117 MMOL/L (99-107); CREATININE 1.95 MG/DL (0.60-1.10); GLUCOSE 111 MG/DL (70-104); POTASSIUM 3.4 MMOL/L (3.5-5.1); TOTAL CARBON DIOXIDE 25.6 MMOL/L (24-32); TOTAL PROTEIN 7.2 G/DL (6.4-8.2); eGFR 37 ML/MIN
[2021-03-14 09:55] LABS: SODIUM 156 MMOL/L (135-145)
[2021-03-14] MEDS: dextrose 5%-water 1,000 ML IV SCH ×3 (10:10→22:10)
[2021-03-14 10:25] LABS: BASOPHILS # (AUTO) 0.1 X10'3 (0-0.2); BASOPHILS % (AUTO) 0.5 % (0-1); EOSINOPHILS % (AUTO) 0.2 % (0-6); HEMATOCRIT 29.2 % (42.0-52.0); HEMOGLOBIN 9.5 g/dl (14.0-17.9); LYMPHOCYTES # (AUTO) 0.6 X10'3 (1.1-4.8); MEAN CORPUSCULAR HGB CONC 32.6 g/dL (33.0-36.5); MEAN CORPUSCULAR VOLUME 92.3 FL (78-98); MEAN PLATELET VOLUME 9.1 FL (7.4-10.4); MONOCYTES # (AUTO) 1.2 X10'3 (0-0.9); MONOCYTES % (AUTO) 5.8 % (2-12); NEUTROPHILS # (AUTO) 18.7 X10'3 (1.8-7.7); NEUTROPHILS % (AUTO) 90.5 % (42-75); PLATELET COUNT 531 X10'3 (140-440); RED BLOOD COUNT 3.17 X10'6 (4.70-6.10); RED CELL DISTRIBUTION WIDTH 16.1 % (11.5-14.5); WHITE BLOOD COUNT 20.7 X10'3 (4.5-11.0)
--- NOTE | 2021-03-14 11:57 | NUR ---
Reassessment: Pt self extubated 03/13 and also pulled out feeding tube. BSS ordered today and per RN, Generalist steven w/ pt having Regular diet. Pt continues on dialysis, last documented 03/11 w/ 2.5L out. Pt documented on A&O x 1 w/ 6L oxygen via NC. LBM 03/13 w/ 200ml output. Receiving D5W at 120ml/hr providing 489kcals. Will continue to monitor PO trends upon diet advancement and make recommendations as appropriate. Recs: 1. Advance to Regular diet per MANAGER RESEARCH DEVELOPMENT/MD; monitor labs 2. Monitor need for ONS pending PO intake 3. Bowel care per rx 4. Daily wts w/ dialysis Addendum: 03/14/21 at [address] Amended: Links added.
[2021-03-14 12:08] LABS: ANISOCYTOSIS 1+; PLATELET ESTIMATE INCREASED; TOTAL CELLS COUNTED 100
[2021-03-15] VITALS (20 sets, daily range): BP systolic 116–144; BP diastolic 69–92
--- NOTE | 2021-03-15 01:43 | NUR ---
Charge nurse, Francesca, monitoring and adjusting Precedex drip.
[2021-03-15] MEDS: mineral oil/petrolatum ophthal oint EACHEYE SCH ×5 (02:00→20:39)
--- NOTE | 2021-03-15 04:52 | NUR ---
Precedex drip monitored and maintained by charge nurse, Dee.
--- NOTE | 2021-03-15 05:51 | NUR ---
Patient in bed resting with eyes closed at this time. Vital signs documented in interventions. No signs of distress or discomfort noted at this time. Galo catheter care performed. patient repositioned for comfort. Rectal tube in place. Call light and personal belongings placed within reach. Patient had no signs of increased agitation throughout shift. very pleasant. instructed to call for assistance.
[2021-03-15] MEDS: micafungin inj 100 MG in normal saline 100ml IV soln 100 ML IV SCH (08:00)
[2021-03-15] MEDS: pantoprazole 40 MG vial IV SCH (08:00)
[2021-03-15] MEDS: hydrocortisone sod succ/PF 100mg/2ml inj. IV SCH ×2 (08:07→20:15)
[2021-03-15] MEDS: linezolid 600mg tablet PO SCH ×2 (08:07→20:10)
[2021-03-15] MEDS: lactobacillus rhamnosus 10,000 MMU CELLS/CAPSULE OGT SCH ×2 (08:07→20:08)
[2021-03-15] MEDS: enoxaparin 30mg/0.3ml syringe SUBCUT SCH (08:08)
[2021-03-15] MEDS: CefTRIAXone 2gm/D5W 50ml BAG 50 ML IV SCH (08:08)
[2021-03-15 08:55] LABS: BASOPHILS # (AUTO) 0.1 X10'3 (0-0.2); BASOPHILS % (AUTO) 0.5 % (0-1); EOSINOPHILS # (AUTO) 0.4 X10'3 (0-0.9); EOSINOPHILS % (AUTO) 2.6 % (0-6); HEMATOCRIT 25.6 % (42.0-52.0); HEMOGLOBIN 8.7 g/dl (14.0-17.9); LYMPHOCYTES # (AUTO) 1.5 X10'3 (1.1-4.8); LYMPHOCYTES % (AUTO) 11.1 % (21-51); MEAN CORPUSCULAR HEMOGLOBIN 30.9 PG (27.0-31.0); MEAN CORPUSCULAR HGB CONC 34.2 g/dL (33.0-36.5); MEAN CORPUSCULAR VOLUME 90.4 FL (78-98); MEAN PLATELET VOLUME 8.3 FL (7.4-10.4); MONOCYTES # (AUTO) 1.7 X10'3 (0-0.9); MONOCYTES % (AUTO) 12.5 % (2-12); NEUTROPHILS # (AUTO) 10.2 X10'3 (1.8-7.7); NEUTROPHILS % (AUTO) 73.3 % (42-75); PLATELET COUNT 520 X10'3 (140-440); RED BLOOD COUNT 2.83 X10'6 (4.70-6.10); RED CELL DISTRIBUTION WIDTH 14.7 % (11.5-14.5); WHITE BLOOD COUNT 13.9 X10'3 (4.5-11.0)
[2021-03-15 09:16] LABS: ALANINE AMINOTRANSFERASE 49 U/L (12-78); ALBUMIN 1.3 G/DL (3.4-5.0); ALBUMIN/GLOBULIN RATIO 0.3 (1.1-1.5); ALKALINE PHOSPHATASE 82 IU/L (46-116); ANION GAP 10 (8-16); ASPARTATE AMINO TRANSFERASE 36 U/L (10-37); BILIRUBIN,TOTAL 0.4 MG/DL (0.1-1.0); BLOOD UREA NITROGEN 68 MG/DL (7-18); BUN/CREATININE RATIO 40.7 (5.4-32.0); CHLORIDE 106 MMOL/L (99-107); CREATININE 1.67 MG/DL (0.60-1.10); GLUCOSE 121 MG/DL (70-104); MAGNESIUM 1.5 MG/DL (1.5-2.4); PHOSPHORUS 4.3 MG/DL (2.3-4.5); POTASSIUM 3.2 MMOL/L (3.5-5.1); SODIUM 142 MMOL/L (135-145); TOTAL CARBON DIOXIDE 26.5 MMOL/L (24-32); TOTAL PROTEIN 6.4 G/DL (6.4-8.2); eGFR 44 ML/MIN
[2021-03-15 09:19] LABS: CALCIUM 5.8 MG/DL (8.5-10.1)
[2021-03-15] MEDS ORDERED: magnesium 2GM in 50ml NS 50 ML IV PRN (09:40)
[2021-03-15] MEDS ORDERED: potassium Cl 40MEQ/1/2NS 520ml 520 ML IV PRN (09:40)
[2021-03-15] MEDS ORDERED: potassium Cl 20 mEq SR tablet PO PRN (09:40)
[2021-03-15] MEDS ORDERED: calcium gluconate inj. 1 GM in normal saline 100ml IV soln 100 ML IV ONE (10:45)
[2021-03-15] MEDS: QUEtiapine 25mg tablet PO SCH (10:47)
[2021-03-15] MEDS ORDERED: calcium gluconate inj. 1 GM in normal saline 100ml IV soln 90 ML IV ONE (10:53)
[2021-03-15] MEDS ORDERED: CALCIUM GLUC 1gm/50ml NACL,iso 50 ML IV ONE (10:57)
[2021-03-15] MEDS: potassium Cl 20 mEq SR tablet PO PRN ×2 (14:27→20:10)
--- NOTE | 2021-03-15 16:15 | NUR ---
Patient in room ICU 2039. I have received report from Jean-Pierre GEIGER and had the opportunity to ask questions in preparation to assume patient care when pt comes to room 3018B
--- NOTE | 2021-03-15 16:50 | NUR ---
Pt arrived to [facility] 3018B at 1545. Pt nodding head yes/no to questions appropriately. oriented to room and surroundings. BLL, CL within reach, srx2, no s/sx acute distress. 02@4LPM/nc. rhonchi present. pt encouraged to cough. HOB at 30 degrees, SCD to LLE
--- NOTE | 2021-03-15 18:50 | NUR ---
Problems reprioritized. Patient report given, questions answered & plan of care reviewed with Jade GEIGER. pt alert to voice, breathign even. no s/sx acute distress
--- NOTE | 2021-03-15 20:45 | NUR ---
Student documentation: I have reviewed and agree with all interventions, assessments performed and documented by Gama, changes made as needed. Addendum: 03/16/21 at 0300 by Jade Delgado RN Amended: Links added.
[2021-03-16 02:00] VITALS: BP 121/70
--- NOTE | 2021-03-16 06:27 | NUR ---
Problems reprioritized. Patient report given, questions answered & plan of care reviewed with Corie GEIGER. Addendum: 03/16/21 at 0627 by Jade Delgado RN Amended: Links added.
[2021-03-16 06:48] LABS: BASOPHILS # (AUTO) 0.1 X10'3 (0-0.2); BASOPHILS % (AUTO) 0.7 % (0-1); EOSINOPHILS # (AUTO) 0.1 X10'3 (0-0.9); EOSINOPHILS % (AUTO) 1.1 % (0-6); HEMATOCRIT 29.1 % (42.0-52.0); HEMOGLOBIN 9.7 g/dl (14.0-17.9); LYMPHOCYTES # (AUTO) 1.4 X10'3 (1.1-4.8); LYMPHOCYTES % (AUTO) 11.7 % (21-51); MEAN CORPUSCULAR HEMOGLOBIN 30.3 PG (27.0-31.0); MEAN CORPUSCULAR HGB CONC 33.5 g/dL (33.0-36.5); MEAN CORPUSCULAR VOLUME 90.4 FL (78-98); MEAN PLATELET VOLUME 8.7 FL (7.4-10.4); MONOCYTES # (AUTO) 1.3 X10'3 (0-0.9); MONOCYTES % (AUTO) 10.7 % (2-12); NEUTROPHILS # (AUTO) 9.4 X10'3 (1.8-7.7); NEUTROPHILS % (AUTO) 75.8 % (42-75); PLATELET COUNT 569 X10'3 (140-440); RED BLOOD COUNT 3.21 X10'6 (4.70-6.10); RED CELL DISTRIBUTION WIDTH 15.2 % (11.5-14.5); WHITE BLOOD COUNT 12.4 X10'3 (4.5-11.0)
[2021-03-16 06:56] LABS: ALANINE AMINOTRANSFERASE 52 U/L (12-78); ALBUMIN 1.4 G/DL (3.4-5.0); ALBUMIN/GLOBULIN RATIO 0.3 (1.1-1.5); ALKALINE PHOSPHATASE 83 IU/L (46-116); ANION GAP 8 (8-16); ASPARTATE AMINO TRANSFERASE 43 U/L (10-37); BILIRUBIN,TOTAL 0.3 MG/DL (0.1-1.0); BLOOD UREA NITROGEN 53 MG/DL (7-18); BUN/CREATININE RATIO 35.1 (5.4-32.0); CALCIUM 6.6 MG/DL (8.5-10.1); CHLORIDE 111 MMOL/L (99-107); CREATININE 1.51 MG/DL (0.60-1.10); GLUCOSE 125 MG/DL (70-104); MAGNESIUM 1.5 MG/DL (1.5-2.4); PHOSPHORUS 3.7 MG/DL (2.3-4.5); SODIUM 143 MMOL/L (135-145); TOTAL CARBON DIOXIDE 23.9 MMOL/L (24-32); TOTAL PROTEIN 6.8 G/DL (6.4-8.2); eGFR 49 ML/MIN
[2021-03-16 06:58] LABS: POTASSIUM 4.2 MMOL/L (3.5-5.1)
[2021-03-16 07:06] VITALS: BP 109/60
[2021-03-16] MEDS: micafungin inj 100 MG in normal saline 100ml IV soln 100 ML IV SCH (08:00)
[2021-03-16] MEDS: K and/or MAG REPLACEMENT MC SCH (08:00)
[2021-03-16] MEDS: mineral oil/petrolatum ophthal oint EACHEYE SCH ×3 (08:00→20:00)
[2021-03-16] MEDS: QUEtiapine 25mg tablet PO SCH (08:09)
[2021-03-16] MEDS: linezolid 600mg tablet PO SCH ×2 (08:09→20:07)
[2021-03-16] MEDS: lactobacillus rhamnosus 10,000 MMU CELLS/CAPSULE OGT SCH ×2 (08:09→20:06)
[2021-03-16] MEDS: enoxaparin 30mg/0.3ml syringe SUBCUT SCH (08:10)
[2021-03-16] MEDS: hydrocortisone sod succ/PF 100mg/2ml inj. IV SCH ×2 (08:10→20:09)
[2021-03-16] MEDS: pantoprazole 40 MG vial IV SCH (08:10)
[2021-03-16] MEDS: CefTRIAXone 2gm/D5W 50ml BAG 50 ML IV SCH (08:20)
[2021-03-16 11:00] VITALS: BP 133/81
--- NOTE | 2021-03-16 12:30 | NUR ---
Reassessment: Dialysis stopped at this time per demi chef note. Pt A/O x 2 per physical assessment, s/p BSS 03/[address] recs pureed food however at f/u BSS 03/15 ST recs texture liberalization to mince and moist food with thin liquids. Since texture upgrade pt with average 50-75% PO intake of meals. Pt would benefit from ONS to assist with meeting estimated nutrient needs if PO intake does not improve, however would like to see further trends in PO intake before implementing. [facility] 03/15. Will continue to follow closely and make recommendations as appropriate. Recommendations: 1) Continue MM5 food with thin liquids per ST recs 2) Monitor need for ONS pending further trends in PO intake 3) Bowel care per rx 4) Daily scaled weights per rx Addendum: 03/16/21 at [address] Amended: Links added.
[2021-03-16 15:00] VITALS: BP 140/87
[2021-03-16 18:00] VITALS: BP 138/86
[2021-03-16 22:00] VITALS: BP 135/81
--- NOTE | 2021-03-17 01:02 | NUR ---
reviewed and edited SRN assessment.
[2021-03-17 02:00] VITALS: BP 135/81
[2021-03-17] MEDS: mineral oil/petrolatum ophthal oint EACHEYE SCH (02:00)
--- NOTE | 2021-03-17 06:16 | NUR ---
Problems reprioritized. Patient report given, questions answered & plan of care reviewed with Corie RN.
[2021-03-17 06:30] LABS: BASOPHILS # (AUTO) 0.1 X10'3 (0-0.2); EOSINOPHILS # (AUTO) 0.1 X10'3 (0-0.9); EOSINOPHILS % (AUTO) 1.2 % (0-6); HEMATOCRIT 27.2 % (42.0-52.0); HEMOGLOBIN 9.1 g/dl (14.0-17.9); LYMPHOCYTES # (AUTO) 1.6 X10'3 (1.1-4.8); LYMPHOCYTES % (AUTO) 15.1 % (21-51); MEAN CORPUSCULAR HEMOGLOBIN 30.5 PG (27.0-31.0); MEAN CORPUSCULAR HGB CONC 33.4 g/dL (33.0-36.5); MEAN CORPUSCULAR VOLUME 91.1 FL (78-98); MEAN PLATELET VOLUME 8.2 FL (7.4-10.4); MONOCYTES # (AUTO) 1.3 X10'3 (0-0.9); MONOCYTES % (AUTO) 12.1 % (2-12); NEUTROPHILS # (AUTO) 7.4 X10'3 (1.8-7.7); NEUTROPHILS % (AUTO) 70.6 % (42-75); PLATELET COUNT 538 X10'3 (140-440); RED BLOOD COUNT 2.98 X10'6 (4.70-6.10); RED CELL DISTRIBUTION WIDTH 14.5 % (11.5-14.5); WHITE BLOOD COUNT 10.5 X10'3 (4.5-11.0)
[2021-03-17 06:51] LABS: ALANINE AMINOTRANSFERASE 62 U/L (12-78); ALBUMIN 1.5 G/DL (3.4-5.0); ALBUMIN/GLOBULIN RATIO 0.3 (1.1-1.5); ALKALINE PHOSPHATASE 67 IU/L (46-116); ANION GAP 8 (8-16); ASPARTATE AMINO TRANSFERASE 50 U/L (10-37); BILIRUBIN,TOTAL 0.5 MG/DL (0.1-1.0); BLOOD UREA NITROGEN 38 MG/DL (7-18); BUN/CREATININE RATIO 30.9 (5.4-32.0); CALCIUM 6.4 MG/DL (8.5-10.1); CHLORIDE 109 MMOL/L (99-107); CREATININE 1.23 MG/DL (0.60-1.10); GLUCOSE 102 MG/DL (70-104); MAGNESIUM 1.3 MG/DL (1.5-2.4); POTASSIUM 3.9 MMOL/L (3.5-5.1); SODIUM 144 MMOL/L (135-145); TOTAL CARBON DIOXIDE 27.2 MMOL/L (24-32); TOTAL PROTEIN 6.7 G/DL (6.4-8.2); eGFR 62 ML/MIN
[2021-03-17 07:00] VITALS: BP 142/85
[2021-03-17] MEDS: hydrocortisone sod succ/PF 100mg/2ml inj. IV SCH ×2 (08:00→20:51)
[2021-03-17] MEDS: K and/or MAG REPLACEMENT MC SCH (08:00)
[2021-03-17] MEDS: CefTRIAXone 2gm/D5W 50ml BAG 50 ML IV SCH (08:00)
[2021-03-17] MEDS: micafungin inj 100 MG in normal saline 100ml IV soln 100 ML IV SCH (09:00)
[2021-03-17 11:00] VITALS: BP 150/88
[2021-03-17] MEDS: pantoprazole 40 MG vial IV SCH (12:15)
[2021-03-17] MEDS: QUEtiapine 25mg tablet PO SCH (12:26)
[2021-03-17] MEDS: magnesium Cl slow-release 64mg tablet PO PRN (12:27)
[2021-03-17] MEDS: lactobacillus rhamnosus 10,000 MMU CELLS/CAPSULE OGT SCH ×2 (12:28→20:51)
[2021-03-17] MEDS: linezolid 600mg tablet PO SCH ×2 (12:28→22:19)
[2021-03-17] MEDS: enoxaparin 30mg/0.3ml syringe SUBCUT SCH (12:29)
--- NOTE | 2021-03-17 17:00 | NUR ---
PATIENT NOW USING ADAPTIVE UTENSILS , AND MIN ASSIST FOR MEALS. Addendum: 03/17/21 at 2000 by Sumi Gibbs RN Amended: Links added.
[2021-03-17 18:00] VITALS: BP_SYST 108; BP_SYST 118; BP_DIAS 65; BP_DIAS 69
--- NOTE | 2021-03-17 20:59 | NUR ---
Pt in bed turns to his right side post evening care. Galo and skin care done. Call light and table placed within reach. Safety measure in place. No signs of any discomfort noted beside being sleepy Continue to monitor pt' s respiratory status
--- NOTE | 2021-03-17 23:59 | NUR ---
Notified FELY Griffith of PTT 105
[2021-03-18 01:27] VITALS: BP 139/88
[2021-03-18 06:58] LABS: BASOPHILS # (AUTO) 0.1 X10'3 (0-0.2); BASOPHILS % (AUTO) 0.7 % (0-1); EOSINOPHILS # (AUTO) 0.2 X10'3 (0-0.9); EOSINOPHILS % (AUTO) 1.9 % (0-6); HEMATOCRIT 26.4 % (42.0-52.0); HEMOGLOBIN 8.8 g/dl (14.0-17.9); LYMPHOCYTES # (AUTO) 1.8 X10'3 (1.1-4.8); LYMPHOCYTES % (AUTO) 18.2 % (21-51); MEAN CORPUSCULAR HEMOGLOBIN 30.3 PG (27.0-31.0); MEAN CORPUSCULAR HGB CONC 33.2 g/dL (33.0-36.5); MEAN CORPUSCULAR VOLUME 91.4 FL (78-98); MEAN PLATELET VOLUME 7.8 FL (7.4-10.4); MONOCYTES # (AUTO) 1.2 X10'3 (0-0.9); MONOCYTES % (AUTO) 12.1 % (2-12); NEUTROPHILS # (AUTO) 6.8 X10'3 (1.8-7.7); NEUTROPHILS % (AUTO) 67.1 % (42-75); PLATELET COUNT 508 X10'3 (140-440); RED BLOOD COUNT 2.89 X10'6 (4.70-6.10); WHITE BLOOD COUNT 10.1 X10'3 (4.5-11.0)
--- NOTE | 2021-03-18 07:02 | NUR ---
Patient in room PCU 3018. I have received report from Gladis GEIGER and had the opportunity to ask questions and assume patient care.
[2021-03-18 07:10] LABS: ALANINE AMINOTRANSFERASE 92 U/L (12-78); ALBUMIN 1.4 G/DL (3.4-5.0); ALBUMIN/GLOBULIN RATIO 0.3 (1.1-1.5); ALKALINE PHOSPHATASE 62 IU/L (46-116); ANION GAP 6 (8-16); ASPARTATE AMINO TRANSFERASE 81 U/L (10-37); BILIRUBIN,TOTAL 0.4 MG/DL (0.1-1.0); BLOOD UREA NITROGEN 29 MG/DL (7-18); BUN/CREATININE RATIO 26.4 (5.4-32.0); CALCIUM 6.5 MG/DL (8.5-10.1); CHLORIDE 109 MMOL/L (99-107); GLUCOSE 93 MG/DL (70-104); MAGNESIUM 1.4 MG/DL (1.5-2.4); PHOSPHORUS 3.5 MG/DL (2.3-4.5); POTASSIUM 3.9 MMOL/L (3.5-5.1); PREALBUMIN 17.8 MG/DL (19-36); SODIUM 143 MMOL/L (135-145); TOTAL CARBON DIOXIDE 27.9 MMOL/L (24-32); TOTAL PROTEIN 6.2 G/DL (6.4-8.2); eGFR 71 ML/MIN
[2021-03-18] MEDS: K and/or MAG REPLACEMENT MC SCH (08:00)
[2021-03-18] MEDS: acetaminophen 325mg/10.15ml oral unit dose solution OGT PRN (08:15)
[2021-03-18] MEDS: linezolid 600mg tablet PO SCH ×2 (08:16→20:16)
[2021-03-18] MEDS: CefTRIAXone 2gm/D5W 50ml BAG 50 ML IV SCH (08:17)
[2021-03-18] MEDS: QUEtiapine 25mg tablet PO SCH (08:19)
[2021-03-18] MEDS: pantoprazole 40 MG vial IV SCH (08:19)
[2021-03-18] MEDS: lactobacillus rhamnosus 10,000 MMU CELLS/CAPSULE OGT SCH ×2 (08:19→20:16)
[2021-03-18] MEDS: hydrocortisone sod succ/PF 100mg/2ml inj. IV SCH ×2 (08:19→20:19)
[2021-03-18] MEDS: enoxaparin 30mg/0.3ml syringe SUBCUT SCH (08:21)
[2021-03-18] MEDS: micafungin inj 100 MG in normal saline 100ml IV soln 100 ML IV SCH (10:53)
[2021-03-18 11:00] VITALS: BP 137/89
[2021-03-18 15:00] VITALS: BP 116/74
[2021-03-18 18:00] VITALS: BP 133/77
--- NOTE | 2021-03-18 18:18 | NUR ---
Problems reprioritized. Patient report given, questions answered & plan of care reviewed with Courtney GEIGER.
--- NOTE | 2021-03-18 18:30 | NUR ---
Patient in room PCU 3018. I have received report from Jory GEIGER and had the opportunity to ask questions and assume patient care.
[2021-03-18] MEDS: HYDROcodone/acetaminophen 5mg/325mg tablet PO PRN (20:16)
[2021-03-18 22:00] VITALS: BP 129/85
[2021-03-19 02:00] VITALS: BP 122/77
[2021-03-19 05:58] LABS: BASOPHILS # (AUTO) 0.1 X10'3 (0-0.2); BASOPHILS % (AUTO) 0.6 % (0-1); EOSINOPHILS # (AUTO) 0.1 X10'3 (0-0.9); EOSINOPHILS % (AUTO) 0.9 % (0-6); HEMATOCRIT 27.9 % (42.0-52.0); HEMOGLOBIN 9.2 g/dl (14.0-17.9); LYMPHOCYTES # (AUTO) 1.7 X10'3 (1.1-4.8); LYMPHOCYTES % (AUTO) 17.7 % (21-51); MEAN CORPUSCULAR HEMOGLOBIN 30.3 PG (27.0-31.0); MEAN CORPUSCULAR HGB CONC 33.1 g/dL (33.0-36.5); MEAN CORPUSCULAR VOLUME 91.5 FL (78-98); MEAN PLATELET VOLUME 7.5 FL (7.4-10.4); MONOCYTES # (AUTO) 1.1 X10'3 (0-0.9); MONOCYTES % (AUTO) 11.6 % (2-12); NEUTROPHILS # (AUTO) 6.6 X10'3 (1.8-7.7); NEUTROPHILS % (AUTO) 69.2 % (42-75); PLATELET COUNT 486 X10'3 (140-440); RED BLOOD COUNT 3.04 X10'6 (4.70-6.10); RED CELL DISTRIBUTION WIDTH 14.6 % (11.5-14.5); WHITE BLOOD COUNT 9.5 X10'3 (4.5-11.0)
[2021-03-19 06:00] VITALS: BP 127/84
[2021-03-19 06:18] LABS: ALANINE AMINOTRANSFERASE 78 U/L (12-78); ALBUMIN 1.5 G/DL (3.4-5.0); ALBUMIN/GLOBULIN RATIO 0.3 (1.1-1.5); ALKALINE PHOSPHATASE 65 IU/L (46-116); ANION GAP 6 (8-16); ASPARTATE AMINO TRANSFERASE 44 U/L (10-37); BILIRUBIN,TOTAL 0.3 MG/DL (0.1-1.0); BLOOD UREA NITROGEN 28 MG/DL (7-18); BUN/CREATININE RATIO 25.9 (5.4-32.0); CALCIUM 7.1 MG/DL (8.5-10.1); CHLORIDE 109 MMOL/L (99-107); CREATININE 1.08 MG/DL (0.60-1.10); GLUCOSE 141 MG/DL (70-104); MAGNESIUM 1.4 MG/DL (1.5-2.4); POTASSIUM 3.8 MMOL/L (3.5-5.1); SODIUM 142 MMOL/L (135-145); TOTAL CARBON DIOXIDE 27.4 MMOL/L (24-32); TOTAL PROTEIN 6.5 G/DL (6.4-8.2); eGFR 72 ML/MIN
--- NOTE | 2021-03-19 06:31 | NUR ---
Problems reprioritized. Patient report given, questions answered & plan of care reviewed with Jory GEIGER.
--- NOTE | 2021-03-19 06:52 | NUR ---
Patient in room PCU 3018. I have received report from Courtney GEIGER and had the opportunity to ask questions and assume patient care.
[2021-03-19] MEDS: micafungin inj 100 MG in normal saline 100ml IV soln 100 ML IV SCH (08:10)
[2021-03-19] MEDS: pantoprazole 40 MG vial IV SCH (08:11)
[2021-03-19] MEDS: enoxaparin 30mg/0.3ml syringe SUBCUT SCH (08:12)
[2021-03-19] MEDS: lactobacillus rhamnosus 10,000 MMU CELLS/CAPSULE OGT SCH ×2 (08:12→22:28)
[2021-03-19] MEDS: QUEtiapine 25mg tablet PO SCH (08:12)
[2021-03-19] MEDS: HYDROcodone/acetaminophen 5mg/325mg tablet PO PRN (08:12)
[2021-03-19] MEDS: hydrocortisone sod succ/PF 100mg/2ml inj. IV SCH ×2 (08:13→22:28)
--- NOTE | 2021-03-19 09:33 | NUR ---
Reassessment: Noted Zyvox has been discontinued, low tyramine nutrition therapy education no longer indicated. Pt remains A/O x 2 per physical assessment and continues on minced and moist food per ST recs. PO intake seems to be improving, up to 75% PO intake since dinner 03/17. LBM 03/17. No nutrition intervention implemented at this time. Will continue to follow. Recommendations: 1) Continue MM5 food with thin liquids per ST recs 2) Monitor need for ONS pending further trends in PO intake 3) Bowel care per rx 4) Weekly scaled weights Addendum: 03/19/21 at [address] Amended: Links added.
--- NOTE | 2021-03-19 10:53 | NUR ---
Met with patient in regards to substance use and to see if patient wanted any resources for treatment and patient declined.
--- NOTE | 2021-03-19 14:06 | NUR ---
Patient is in bed sleeping, no signs of distress. Call light within reach and bed locked and lowered. Will continue to monitor.
[2021-03-19 14:57] VITALS: BP 130/88
[2021-03-19 15:00] VITALS: BP 117/80
--- NOTE | 2021-03-19 16:30 | NUR ---
Performed bed bath and shampoo. Linen was changed. Barrier cream applied to sacrum and lotion applied to arms, hands, legs, and feet. Bed locked, lowered, and call light within reach.
[2021-03-19 18:00] VITALS: BP 136/88
--- NOTE | 2021-03-19 18:34 | NUR ---
Problems reprioritized. Patient report given, questions answered & plan of care reviewed with Darcie GEIGER.
--- NOTE | 2021-03-19 18:57 | NUR ---
Patient in room PCU 3018. I have received report from FELY Corley and had the opportunity to ask questions and assume patient care.
--- NOTE | 2021-03-19 19:00 | NUR ---
Patient's tray and his dinner record was not in the room or hanging up outside the door.
[2021-03-19 22:00] VITALS: BP 137/79
--- NOTE | 2021-03-19 23:13 | NUR ---
Pt complaining of nausea, sore throat and has an ax temp of 100.1. Dr. Sung ordered Tylenol. Will continue to monitor.
[2021-03-19] MEDS: acetaminophen 325mg tablet PO PRN (23:29)
[2021-03-20 02:00] VITALS: BP 109/85
[2021-03-20 03:22] LABS: BASOPHILS # (AUTO) 0.1 X10'3 (0-0.2); BASOPHILS % (AUTO) 0.5 % (0-1); EOSINOPHILS # (AUTO) 0.1 X10'3 (0-0.9); EOSINOPHILS % (AUTO) 0.6 % (0-6); HEMATOCRIT 26.6 % (42.0-52.0); LYMPHOCYTES # (AUTO) 1.6 X10'3 (1.1-4.8); LYMPHOCYTES % (AUTO) 12.8 % (21-51); MEAN CORPUSCULAR HEMOGLOBIN 30.4 PG (27.0-31.0); MEAN CORPUSCULAR HGB CONC 33.6 g/dL (33.0-36.5); MEAN CORPUSCULAR VOLUME 90.4 FL (78-98); MEAN PLATELET VOLUME 7.3 FL (7.4-10.4); MONOCYTES # (AUTO) 0.9 X10'3 (0-0.9); MONOCYTES % (AUTO) 7.1 % (2-12); PLATELET COUNT 458 X10'3 (140-440); RED BLOOD COUNT 2.94 X10'6 (4.70-6.10); RED CELL DISTRIBUTION WIDTH 14.7 % (11.5-14.5); WHITE BLOOD COUNT 12.6 X10'3 (4.5-11.0)
[2021-03-20 03:36] LABS: ALANINE AMINOTRANSFERASE 73 U/L (12-78); ALBUMIN 1.6 G/DL (3.4-5.0); ALBUMIN/GLOBULIN RATIO 0.3 (1.1-1.5); ALKALINE PHOSPHATASE 59 IU/L (46-116); ANION GAP 10 (8-16); ASPARTATE AMINO TRANSFERASE 42 U/L (10-37); BILIRUBIN,TOTAL 0.3 MG/DL (0.1-1.0); BLOOD UREA NITROGEN 25 MG/DL (7-18); BUN/CREATININE RATIO 26.3 (5.4-32.0); CHLORIDE 108 MMOL/L (99-107); CREATININE 0.95 MG/DL (0.60-1.10); GLUCOSE 114 MG/DL (70-104); MAGNESIUM 1.2 MG/DL (1.5-2.4); PHOSPHORUS 3.2 MG/DL (2.3-4.5); SODIUM 144 MMOL/L (135-145); TOTAL CARBON DIOXIDE 26.5 MMOL/L (24-32); TOTAL PROTEIN 6.5 G/DL (6.4-8.2); eGFR 84 ML/MIN
[2021-03-20 06:00] VITALS: BP 142/93
--- NOTE | 2021-03-20 06:37 | NUR ---
Patient in room PCU 3018. I have received report from Darcie GEIGER and had the opportunity to ask questions and assume patient care.
--- NOTE | 2021-03-20 06:37 | NUR ---
Problems reprioritized. Patient report given, questions answered & plan of care reviewed with FELY Corley.
[2021-03-20] MEDS: micafungin inj 100 MG in normal saline 100ml IV soln 100 ML IV SCH (07:46)
[2021-03-20] MEDS: pantoprazole 40 MG vial IV SCH (07:47)
[2021-03-20] MEDS: QUEtiapine 25mg tablet PO SCH (07:47)
[2021-03-20] MEDS: lactobacillus rhamnosus 10,000 MMU CELLS/CAPSULE OGT SCH ×2 (07:47→20:59)
[2021-03-20] MEDS: acetaminophen 325mg tablet PO PRN ×2 (07:47→23:43)
[2021-03-20] MEDS: hydrocortisone sod succ/PF 100mg/2ml inj. IV SCH ×2 (07:48→21:02)
[2021-03-20] MEDS: enoxaparin 30mg/0.3ml syringe SUBCUT SCH (07:49)
[2021-03-20 11:00] VITALS: BP 124/75
[2021-03-20 12:23] LABS: OCCULT BLOOD STOOL NEGATIVE (Neg)
[2021-03-20 15:00] VITALS: BP 118/70
[2021-03-20 18:00] VITALS: BP 144/101
--- NOTE | 2021-03-20 18:14 | NUR ---
Problems reprioritized. Patient report given, questions answered & plan of care reviewed with Francesca GEIGER.
--- NOTE | 2021-03-20 18:23 | NUR ---
Patient in room PCU 3018. I have received report from Jory GEIGER and had the opportunity to ask questions and assume patient care.
[2021-03-20 22:00] VITALS: BP 138/88
[2021-03-21] VITALS (7 sets, daily range): BP systolic 111–150; BP diastolic 66–93
[2021-03-21 06:11] LABS: ALANINE AMINOTRANSFERASE 60 U/L (12-78); ALBUMIN 1.7 G/DL (3.4-5.0); ALBUMIN/GLOBULIN RATIO 0.4 (1.1-1.5); ALKALINE PHOSPHATASE 63 IU/L (46-116); ANION GAP 7 (8-16); ASPARTATE AMINO TRANSFERASE 33 U/L (10-37); BILIRUBIN,TOTAL 0.4 MG/DL (0.1-1.0); BLOOD UREA NITROGEN 21 MG/DL (7-18); BUN/CREATININE RATIO 21.6 (5.4-32.0); CALCIUM 7.3 MG/DL (8.5-10.1); CHLORIDE 108 MMOL/L (99-107); CREATININE 0.97 MG/DL (0.60-1.10); GLUCOSE 110 MG/DL (70-104); MAGNESIUM 1.3 MG/DL (1.5-2.4); PHOSPHORUS 3.6 MG/DL (2.3-4.5); POTASSIUM 3.3 MMOL/L (3.5-5.1); SODIUM 143 MMOL/L (135-145); TOTAL CARBON DIOXIDE 28.4 MMOL/L (24-32); TOTAL PROTEIN 6.4 G/DL (6.4-8.2); TRIGLYCERIDES 142 MG/DL (20-135); eGFR 82 ML/MIN
[2021-03-21 06:12] LABS: BASOPHILS # (AUTO) 0.1 X10'3 (0-0.2); EOSINOPHILS # (AUTO) 0.1 X10'3 (0-0.9); EOSINOPHILS % (AUTO) 0.8 % (0-6); HEMATOCRIT 27.5 % (42.0-52.0); HEMOGLOBIN 9.4 g/dl (14.0-17.9); LYMPHOCYTES # (AUTO) 2.5 X10'3 (1.1-4.8); LYMPHOCYTES % (AUTO) 26.1 % (21-51); MEAN CORPUSCULAR HEMOGLOBIN 30.9 PG (27.0-31.0); MEAN CORPUSCULAR HGB CONC 34.1 g/dL (33.0-36.5); MEAN CORPUSCULAR VOLUME 90.5 FL (78-98); MEAN PLATELET VOLUME 7.5 FL (7.4-10.4); MONOCYTES # (AUTO) 1.4 X10'3 (0-0.9); NEUTROPHILS # (AUTO) 5.6 X10'3 (1.8-7.7); NEUTROPHILS % (AUTO) 58.1 % (42-75); PLATELET COUNT 420 X10'3 (140-440); RED BLOOD COUNT 3.03 X10'6 (4.70-6.10); RED CELL DISTRIBUTION WIDTH 14.9 % (11.5-14.5); WHITE BLOOD COUNT 9.7 X10'3 (4.5-11.0)
--- NOTE | 2021-03-21 06:45 | NUR ---
Problems reprioritized. Patient report given, questions answered & plan of care reviewed with Tristan GEIGER.
--- NOTE | 2021-03-21 07:00 | NUR ---
Patient in room PCU 3018. I have received report from Francesca post and had the opportunity to ask questions and assume patient care.
[2021-03-21] MEDS: pantoprazole 40 MG vial IV SCH (09:42)
[2021-03-21] MEDS: hydrocortisone sod succ/PF 100mg/2ml inj. IV SCH ×2 (09:42→20:16)
[2021-03-21] MEDS: lactobacillus rhamnosus 10,000 MMU CELLS/CAPSULE OGT SCH ×2 (09:43→20:15)
[2021-03-21] MEDS: QUEtiapine 25mg tablet PO SCH (09:44)
[2021-03-21] MEDS: enoxaparin 30mg/0.3ml syringe SUBCUT SCH (09:46)
[2021-03-21] MEDS: micafungin inj 100 MG in normal saline 100ml IV soln 100 ML IV SCH (09:47)
--- NOTE | 2021-03-21 10:35 | NUR ---
Reassessment: Pt s/p f/u BSS 03/[address] recs to continue minced and moist food with thin liquids. Pt continues eating well with average 75% PO intake, up to 100% PO intake 03/21. LBM 03/20. No nutrition intervention implemented at this time. Will continue to follow. Recommendations: 1) Continue MM5 food with thin liquids per ST recs 2) Monitor need for ONS/additional protein 3) Bowel care per rx 4) Weekly scaled weights Addendum: 03/21/21 at [address] Amended: Links added.
[2021-03-21] MEDS: furosemide 20MG tablet PO SCH (10:46)
[2021-03-21] MEDS: potassium Cl 20 mEq SR tablet PO PRN ×3 (10:46→20:18)
[2021-03-21] MEDS: magnesium Cl slow-release 64mg tablet PO PRN (10:46)
--- NOTE | 2021-03-21 18:26 | NUR ---
Problems reprioritized. Patient report given, questions answered & plan of care reviewed with JOHANA GEIGER.
--- NOTE | 2021-03-21 18:30 | NUR ---
Patient in room PCU 3018. I have received report from FELY Winston and had the opportunity to ask questions and assume patient care.
[2021-03-21] MEDS: HYDROcodone/acetaminophen 5mg/325mg tablet PO PRN (20:17)
[2021-03-22 06:00] VITALS: BP 134/94
[2021-03-22 06:23] LABS: BASOPHILS # (AUTO) 0.1 X10'3 (0-0.2); EOSINOPHILS # (AUTO) 0.1 X10'3 (0-0.9); EOSINOPHILS % (AUTO) 1.3 % (0-6); HEMATOCRIT 28.1 % (42.0-52.0); HEMOGLOBIN 9.5 g/dl (14.0-17.9); LYMPHOCYTES # (AUTO) 3.2 X10'3 (1.1-4.8); LYMPHOCYTES % (AUTO) 32.3 % (21-51); MEAN CORPUSCULAR HEMOGLOBIN 30.7 PG (27.0-31.0); MEAN CORPUSCULAR HGB CONC 33.7 g/dL (33.0-36.5); MEAN CORPUSCULAR VOLUME 91.1 FL (78-98); MEAN PLATELET VOLUME 7.1 FL (7.4-10.4); MONOCYTES # (AUTO) 1.6 X10'3 (0-0.9); NEUTROPHILS # (AUTO) 4.9 X10'3 (1.8-7.7); NEUTROPHILS % (AUTO) 49.4 % (42-75); PLATELET COUNT 383 X10'3 (140-440); RED BLOOD COUNT 3.09 X10'6 (4.70-6.10); RED CELL DISTRIBUTION WIDTH 15.2 % (11.5-14.5); WHITE BLOOD COUNT 9.9 X10'3 (4.5-11.0)
--- NOTE | 2021-03-22 06:30 | NUR ---
Problems reprioritized. Patient report given, questions answered & plan of care reviewed with FELY Ng.
[2021-03-22] MEDS: hydrocortisone sod succ/PF 100mg/2ml inj. IV SCH ×2 (07:52→21:45)
[2021-03-22] MEDS: pantoprazole 40 MG vial IV SCH (07:52)
[2021-03-22] MEDS: furosemide 20MG tablet PO SCH (07:52)
[2021-03-22] MEDS: QUEtiapine 25mg tablet PO SCH (07:52)
[2021-03-22] MEDS: lactobacillus rhamnosus 10,000 MMU CELLS/CAPSULE OGT SCH ×2 (07:52→20:48)
[2021-03-22] MEDS: enoxaparin 30mg/0.3ml syringe SUBCUT SCH (07:52)
[2021-03-22] MEDS: micafungin inj 100 MG in normal saline 100ml IV soln 100 ML IV SCH (08:54)
[2021-03-22 11:00] VITALS: BP 139/91
[2021-03-22 17:00] VITALS: BP 100/71
[2021-03-22 18:00] VITALS: BP 132/86
[2021-03-22] MEDS: HYDROcodone/acetaminophen 5mg/325mg tablet PO PRN (20:48)
[2021-03-22 22:00] VITALS: BP 143/91
--- NOTE | 2021-03-22 22:11 | NUR ---
Patient appears anxious and frustrated. Patient called her daughter to complain about the hospital stay. Pt states she not getting help. ordered meds are not helping. Daughter then called the unit stating that the last time patient was here, she has anxiety meds ordered, nicotine patch and Toradol for pain. I called Dr Pearson answering service for new meds order. I was asked to call Dr. Ott who is business unit controller [facility] .
[2021-03-23 02:07] VITALS: BP 137/98
[2021-03-23 06:30] LABS: BASOPHILS # (AUTO) 0.1 X10'3 (0-0.2); BASOPHILS % (AUTO) 0.6 % (0-1); EOSINOPHILS # (AUTO) 0.1 X10'3 (0-0.9); EOSINOPHILS % (AUTO) 0.4 % (0-6); HEMATOCRIT 28.3 % (42.0-52.0); HEMOGLOBIN 9.6 g/dl (14.0-17.9); LYMPHOCYTES % (AUTO) 32.9 % (21-51); MEAN CORPUSCULAR HEMOGLOBIN 30.9 PG (27.0-31.0); MEAN CORPUSCULAR HGB CONC 34.1 g/dL (33.0-36.5); MEAN CORPUSCULAR VOLUME 90.7 FL (78-98); MEAN PLATELET VOLUME 7.2 FL (7.4-10.4); MONOCYTES # (AUTO) 1.6 X10'3 (0-0.9); MONOCYTES % (AUTO) 13.2 % (2-12); NEUTROPHILS # (AUTO) 6.4 X10'3 (1.8-7.7); NEUTROPHILS % (AUTO) 52.9 % (42-75); PLATELET COUNT 391 X10'3 (140-440); RED BLOOD COUNT 3.12 X10'6 (4.70-6.10); RED CELL DISTRIBUTION WIDTH 15.3 % (11.5-14.5); WHITE BLOOD COUNT 12.1 X10'3 (4.5-11.0)
[2021-03-23] MEDS: micafungin inj 100 MG in normal saline 100ml IV soln 100 ML IV SCH (07:43)
[2021-03-23] MEDS: lactobacillus rhamnosus 10,000 MMU CELLS/CAPSULE OGT SCH ×2 (07:47→20:08)
[2021-03-23] MEDS: enoxaparin 30mg/0.3ml syringe SUBCUT SCH (07:47)
[2021-03-23] MEDS: pantoprazole 40 MG vial IV SCH (07:47)
[2021-03-23] MEDS: QUEtiapine 25mg tablet PO SCH (07:47)
[2021-03-23] MEDS: hydrocortisone sod succ/PF 100mg/2ml inj. IV SCH (07:47)
[2021-03-23] MEDS: furosemide 20MG tablet PO SCH (07:47)
[2021-03-23 10:00] VITALS: BP 144/86
[2021-03-23] MEDS ORDERED: iohexol 300mg/ml 100ml inj. ONE (11:47)
[2021-03-23 15:00] VITALS: BP 138/85
--- NOTE | 2021-03-23 15:04 | NUR ---
WOUND INFECTION EDUCATION PROVIDED BY WOUND CARE 1. Patient instructed to call their primary doctor, or go the ED immediately if any of the following symptoms occur: * Increased pain in wound * Increase in drainage from the wound * Redness in the skin surrounding the wound * Warmth in the skin surrounding the wound * Bleeding from the wound * Temperature of 101 or greater 2. If any of these occur while in the hospital tell a nurse immediately. Addendum: 03/23/21 at 1504 by Tita Escamilla RN Amended: Links added.
[2021-03-23] MEDS: methylPREDNISolone sod succ 125mg/2ml vial IV SCH ×2 (17:10→20:08)
[2021-03-23 18:00] VITALS: BP 143/95
[2021-03-23] MEDS: azithromycin/NS 500mg/250ml 250 ML IV SCH (20:09)
[2021-03-23] MEDS: HYDROcodone/acetaminophen 5mg/325mg tablet PO PRN (21:17)
[2021-03-23 22:00] VITALS: BP 130/94
[2021-03-24 02:00] VITALS: BP 116/80
[2021-03-24 06:00] VITALS: BP 132/93
--- NOTE | 2021-03-24 06:30 | NUR ---
Patient in room PCU 3018. I have received report from Yanique GEIGER and had the opportunity to ask questions and assume patient care.
[2021-03-24] MEDS: lactobacillus rhamnosus 10,000 MMU CELLS/CAPSULE OGT SCH ×2 (08:56→20:06)
[2021-03-24] MEDS: levoFLOXACIN 500mg tablet PO SCH (08:56)
[2021-03-24] MEDS: QUEtiapine 25mg tablet PO SCH (08:57)
[2021-03-24] MEDS: furosemide 20MG tablet PO SCH (08:57)
[2021-03-24] MEDS: enoxaparin 30mg/0.3ml syringe SUBCUT SCH (08:57)
[2021-03-24] MEDS: pantoprazole 40 MG vial IV SCH (08:58)
[2021-03-24] MEDS: methylPREDNISolone sod succ 125mg/2ml vial IV SCH ×2 (08:58→20:06)
[2021-03-24] MEDS: azithromycin/NS 500mg/250ml 250 ML IV SCH (08:58)
[2021-03-24 09:56] LABS: BASOPHILS % (AUTO) 0.2 % (0-1); EOSINOPHILS % (AUTO) 0 % (0-6); HEMATOCRIT 28.1 % (42.0-52.0); HEMOGLOBIN 9.6 g/dl (14.0-17.9); LYMPHOCYTES # (AUTO) 4.1 X10'3 (1.1-4.8); LYMPHOCYTES % (AUTO) 32.7 % (21-51); MEAN CORPUSCULAR HEMOGLOBIN 30.8 PG (27.0-31.0); MEAN CORPUSCULAR VOLUME 90.7 FL (78-98); MONOCYTES # (AUTO) 1.4 X10'3 (0-0.9); MONOCYTES % (AUTO) 11.2 % (2-12); NEUTROPHILS # (AUTO) 7.1 X10'3 (1.8-7.7); NEUTROPHILS % (AUTO) 55.9 % (42-75); PLATELET COUNT 387 X10'3 (140-440); RED CELL DISTRIBUTION WIDTH 15.8 % (11.5-14.5); WHITE BLOOD COUNT 12.7 X10'3 (4.5-11.0)
[2021-03-24 10:10] LABS: ALANINE AMINOTRANSFERASE 48 U/L (12-78); ALBUMIN/GLOBULIN RATIO 0.4 (1.1-1.5); ALKALINE PHOSPHATASE 62 IU/L (46-116); ANION GAP 10 (8-16); ASPARTATE AMINO TRANSFERASE 15 U/L (10-37); BILIRUBIN,TOTAL 0.3 MG/DL (0.1-1.0); BLOOD UREA NITROGEN 20 MG/DL (7-18); BUN/CREATININE RATIO 19.4 (5.4-32.0); CALCIUM 7.6 MG/DL (8.5-10.1); CHLORIDE 105 MMOL/L (99-107); CREATININE 1.03 MG/DL (0.60-1.10); GLUCOSE 154 MG/DL (70-104); POTASSIUM 3.4 MMOL/L (3.5-5.1); SODIUM 142 MMOL/L (135-145); TOTAL CARBON DIOXIDE 26.7 MMOL/L (24-32); TOTAL PROTEIN 6.9 G/DL (6.4-8.2); eGFR 76 ML/MIN
[2021-03-24 11:00] VITALS: BP 112/70
[2021-03-24] MEDS: micafungin inj 100 MG in normal saline 100ml IV soln 100 ML IV SCH (12:46)
[2021-03-24] MEDS: potassium Cl 20 mEq SR tablet PO PRN ×3 (13:18→20:06)
--- NOTE | 2021-03-24 13:25 | NUR ---
Paged Dr. Meredith regarding diet. PAGER ID: [phone] MESSAGE: [id number] Kameron Jarquin. Can we advance diet? JEAN Choudhary RN
[2021-03-24 15:00] VITALS: BP 122/85
[2021-03-24 18:00] VITALS: BP 131/86
--- NOTE | 2021-03-24 18:28 | NUR ---
Problems reprioritized. Patient report given, questions answered & plan of care reviewed with Doron GEIGER, patient stable at transfer.
--- NOTE | 2021-03-24 18:34 | NUR ---
[place] documentation: I have reviewed and agree with all interventions, assessments performed and documented by Funmi GEIGER.
--- NOTE | 2021-03-24 18:34 | NUR ---
[place] Medication Administration: For this medication-pass time frame, all medication were reviewed, dispensed, administered and documented per hospital policy by Funmi GEIGER.
[2021-03-25] VITALS (7 sets, daily range): BP systolic 112–138; BP diastolic 79–96
--- NOTE | 2021-03-25 06:33 | NUR ---
Patient in room PCU 3018. I have received report from Doron GEIGER and had the opportunity to ask questions and assume patient care.
[2021-03-25 07:21] LABS: BASOPHILS % (AUTO) 0.1 % (0-1); EOSINOPHILS % (AUTO) 0 % (0-6); HEMATOCRIT 30.3 % (42.0-52.0); LYMPHOCYTES # (AUTO) 3.6 X10'3 (1.1-4.8); LYMPHOCYTES % (AUTO) 27.5 % (21-51); MEAN CORPUSCULAR HEMOGLOBIN 30.6 PG (27.0-31.0); MEAN CORPUSCULAR HGB CONC 33.2 g/dL (33.0-36.5); MEAN CORPUSCULAR VOLUME 92.3 FL (78-98); MEAN PLATELET VOLUME 7.3 FL (7.4-10.4); MONOCYTES # (AUTO) 1.5 X10'3 (0-0.9); MONOCYTES % (AUTO) 11.3 % (2-12); NEUTROPHILS # (AUTO) 7.9 X10'3 (1.8-7.7); NEUTROPHILS % (AUTO) 61.1 % (42-75); PLATELET COUNT 425 X10'3 (140-440); RED BLOOD COUNT 3.28 X10'6 (4.70-6.10)
[2021-03-25] MEDS: azithromycin/NS 500mg/250ml 250 ML IV SCH (08:41)
[2021-03-25] MEDS: micafungin inj 100 MG in normal saline 100ml IV soln 100 ML IV SCH (08:41)
[2021-03-25] MEDS: methylPREDNISolone sod succ 125mg/2ml vial IV SCH ×2 (08:43→20:35)
[2021-03-25] MEDS: pantoprazole 40 MG vial IV SCH (08:43)
[2021-03-25] MEDS: furosemide 20MG tablet PO SCH (08:43)
[2021-03-25] MEDS: lactobacillus rhamnosus 10,000 MMU CELLS/CAPSULE OGT SCH ×2 (08:43→20:35)
[2021-03-25] MEDS: QUEtiapine 25mg tablet PO SCH (08:43)
[2021-03-25] MEDS: enoxaparin 30mg/0.3ml syringe SUBCUT SCH (08:44)
[2021-03-25] MEDS: levoFLOXACIN 500mg tablet PO SCH (09:05)
[2021-03-25 13:51] LABS: BASOPHILS % (AUTO) 0.2 % (0-1); EOSINOPHILS % (AUTO) 0 % (0-6); HEMATOCRIT 31.4 % (42.0-52.0); HEMOGLOBIN 10.5 g/dl (14.0-17.9); LYMPHOCYTES % (AUTO) 15.9 % (21-51); MEAN CORPUSCULAR HGB CONC 33.5 g/dL (33.0-36.5); MEAN CORPUSCULAR VOLUME 92.4 FL (78-98); MEAN PLATELET VOLUME 7.5 FL (7.4-10.4); MONOCYTES # (AUTO) 0.5 X10'3 (0-0.9); MONOCYTES % (AUTO) 4.1 % (2-12); NEUTROPHILS # (AUTO) 10.2 X10'3 (1.8-7.7); NEUTROPHILS % (AUTO) 79.8 % (42-75); PLATELET COUNT 453 X10'3 (140-440); RED CELL DISTRIBUTION WIDTH 16.3 % (11.5-14.5); WHITE BLOOD COUNT 12.7 X10'3 (4.5-11.0)
--- NOTE | 2021-03-25 18:13 | NUR ---
Problems reprioritized. Patient report given, questions answered & plan of care reviewed with Holly GEIGER. Patient stable at transfer of care.
--- NOTE | 2021-03-25 18:15 | NUR ---
[place] documentation: I have reviewed and agree with all interventions, assessments performed and documented by Funmi GEIGER.
--- NOTE | 2021-03-25 18:15 | NUR ---
Patient in room PCU 3018B. I have received report from FELY Hansen and had the opportunity to ask questions and assume patient care.
--- NOTE | 2021-03-25 18:16 | NUR ---
[place] Medication Administration: For this medication-pass time frame, all medication were reviewed, dispensed, administered and documented per hospital policy by Funmi GEIGER.
[2021-03-25] MEDS: mineral oil/petrolatum, white cream 113gm jar TP SCH (20:35)
[2021-03-26 03:00] VITALS: BP 135/92
[2021-03-26 06:00] VITALS: BP 127/91
[2021-03-26 06:27] LABS: BASOPHILS % (AUTO) 0.2 % (0-1); EOSINOPHILS % (AUTO) 0 % (0-6); HEMOGLOBIN 10.6 g/dl (14.0-17.9); LYMPHOCYTES # (AUTO) 3.3 X10'3 (1.1-4.8); LYMPHOCYTES % (AUTO) 25.8 % (21-51); MEAN CORPUSCULAR HEMOGLOBIN 30.3 PG (27.0-31.0); MEAN CORPUSCULAR VOLUME 91.9 FL (78-98); MEAN PLATELET VOLUME 7.1 FL (7.4-10.4); MONOCYTES # (AUTO) 1.5 X10'3 (0-0.9); MONOCYTES % (AUTO) 11.7 % (2-12); NEUTROPHILS # (AUTO) 7.9 X10'3 (1.8-7.7); NEUTROPHILS % (AUTO) 62.3 % (42-75); PLATELET COUNT 450 X10'3 (140-440); RED BLOOD COUNT 3.48 X10'6 (4.70-6.10); RED CELL DISTRIBUTION WIDTH 16.3 % (11.5-14.5); WHITE BLOOD COUNT 12.7 X10'3 (4.5-11.0)
--- NOTE | 2021-03-26 06:30 | NUR ---
Patient in room PCU 3018. I have received report from Holly GEIGER and had the opportunity to ask questions and assume patient care.
--- NOTE | 2021-03-26 06:35 | NUR ---
Problems reprioritized. Patient report given, questions answered & plan of care reviewed with FELY Hansen.
[2021-03-26] MEDS: mineral oil/petrolatum, white cream 113gm jar TP SCH ×2 (08:00→20:05)
[2021-03-26] MEDS: lactobacillus rhamnosus 10,000 MMU CELLS/CAPSULE OGT SCH ×2 (08:49→20:05)
[2021-03-26] MEDS: enoxaparin 30mg/0.3ml syringe SUBCUT SCH (08:49)
[2021-03-26] MEDS: furosemide 20MG tablet PO SCH (08:49)
[2021-03-26] MEDS: pantoprazole 40 MG vial IV SCH (08:49)
[2021-03-26] MEDS: levoFLOXACIN 500mg tablet PO SCH (08:50)
[2021-03-26] MEDS: QUEtiapine 25mg tablet PO SCH (08:50)
[2021-03-26 08:58] LABS: ALANINE AMINOTRANSFERASE 42 U/L (12-78); ALBUMIN 2.2 G/DL (3.4-5.0); ALBUMIN/GLOBULIN RATIO 0.4 (1.1-1.5); ALKALINE PHOSPHATASE 65 IU/L (46-116); ANION GAP 10 (8-16); ASPARTATE AMINO TRANSFERASE 17 U/L (10-37); BILIRUBIN,TOTAL 0.4 MG/DL (0.1-1.0); BLOOD UREA NITROGEN 27 MG/DL (7-18); BUN/CREATININE RATIO 24.8 (5.4-32.0); CALCIUM 8.1 MG/DL (8.5-10.1); CHLORIDE 106 MMOL/L (99-107); CREATININE 1.09 MG/DL (0.60-1.10); GLUCOSE 140 MG/DL (70-104); POTASSIUM 4.1 MMOL/L (3.5-5.1); SODIUM 142 MMOL/L (135-145); TOTAL CARBON DIOXIDE 26.4 MMOL/L (24-32); TOTAL PROTEIN 7.2 G/DL (6.4-8.2); eGFR 72 ML/MIN
[2021-03-26 11:00] VITALS: BP 111/80
[2021-03-26 15:00] VITALS: BP 112/78
--- NOTE | 2021-03-26 15:28 | NUR ---
F/u 03/26: Pt advanced to regular diet s/p f/u BSS 03/[address] recs continue regular diet per EMR. PO consistently 100% avg meals meeting needs. LBM 03/24. No nutrition intervention implemented at this time. Will continue to follow. Recommendations: 1) Continue regular diet per MD/ST recs 2) Bowel care per rx 3) Weekly scaled weights Addendum: 03/26/21 at [address] Amended: Links added.
--- NOTE | 2021-03-26 18:12 | NUR ---
Problems reprioritized. Patient report given, questions answered & plan of care reviewed with Holly GEIGER, patient stable at transfer of care.
--- NOTE | 2021-03-26 18:18 | NUR ---
[place] Medication Administration: For this medication-pass time frame, all medication were reviewed, dispensed, administered and documented per hospital policy by Funmi GEIGER.
--- NOTE | 2021-03-26 18:18 | NUR ---
[place] documentation: I have reviewed and agree with all interventions, assessments performed and documented by Funmi GEIGER.
--- NOTE | 2021-03-26 18:25 | NUR ---
Patient in room PCU 3018. I have received report from FELY Hansen and had the opportunity to ask questions and assume patient care.
[2021-03-26 19:00] VITALS: BP 129/86
[2021-03-26] MEDS: HYDROcodone/acetaminophen 5mg/325mg tablet PO PRN (21:28)
[2021-03-26 23:00] VITALS: BP 121/83
--- NOTE | 2021-03-27 00:50 | NUR ---
Patient awake and upset because he wants something for sleep, [place] was given [address], awaiting response.
[2021-03-27] MEDS ORDERED: temazepam 15mg capsule PO ONE (00:55)
--- NOTE | 2021-03-27 00:55 | NUR ---
Dr Meredith called new order received and carried out for Temazepam 15mg PO once tonight.
[2021-03-27 06:00] VITALS: BP 121/75
[2021-03-27 06:51] LABS: BASOPHILS % (AUTO) 0.2 % (0-1); EOSINOPHILS # (AUTO) 0.1 X10'3 (0-0.9); EOSINOPHILS % (AUTO) 0.6 % (0-6); HEMATOCRIT 35.3 % (42.0-52.0); HEMOGLOBIN 11.7 g/dl (14.0-17.9); LYMPHOCYTES # (AUTO) 4.5 X10'3 (1.1-4.8); LYMPHOCYTES % (AUTO) 23.3 % (21-51); MEAN CORPUSCULAR HEMOGLOBIN 30.5 PG (27.0-31.0); MEAN CORPUSCULAR VOLUME 92.3 FL (78-98); MEAN PLATELET VOLUME 6.9 FL (7.4-10.4); MONOCYTES # (AUTO) 3.7 X10'3 (0-0.9); MONOCYTES % (AUTO) 19.1 % (2-12); NEUTROPHILS # (AUTO) 10.9 X10'3 (1.8-7.7); NEUTROPHILS % (AUTO) 56.8 % (42-75); PLATELET COUNT 427 X10'3 (140-440); RED BLOOD COUNT 3.83 X10'6 (4.70-6.10); RED CELL DISTRIBUTION WIDTH 16.6 % (11.5-14.5); WHITE BLOOD COUNT 19.2 X10'3 (4.5-11.0)
[2021-03-27 07:36] LABS: ALANINE AMINOTRANSFERASE 47 U/L (12-78); ALBUMIN 2.1 G/DL (3.4-5.0); ALBUMIN/GLOBULIN RATIO 0.4 (1.1-1.5); ALKALINE PHOSPHATASE 83 IU/L (46-116); ANION GAP 9 (8-16); ASPARTATE AMINO TRANSFERASE 21 U/L (10-37); BILIRUBIN,TOTAL 0.4 MG/DL (0.1-1.0); BLOOD UREA NITROGEN 24 MG/DL (7-18); BUN/CREATININE RATIO 26.4 (5.4-32.0); CALCIUM 7.7 MG/DL (8.5-10.1); CHLORIDE 105 MMOL/L (99-107); CREATININE 0.91 MG/DL (0.60-1.10); GLUCOSE 81 MG/DL (70-104); POTASSIUM 3.6 MMOL/L (3.5-5.1); SODIUM 139 MMOL/L (135-145); TOTAL CARBON DIOXIDE 25.1 MMOL/L (24-32); TOTAL PROTEIN 6.9 G/DL (6.4-8.2); eGFR 88 ML/MIN
[2021-03-27 07:51] LABS: ANISOCYTOSIS 1+; PLATELET ESTIMATE NORMAL; SMUDGE CELLS FEW; TOTAL CELLS COUNTED 100
[2021-03-27] MEDS: pantoprazole 40 MG vial IV SCH (08:54)
[2021-03-27] MEDS: lactobacillus rhamnosus 10,000 MMU CELLS/CAPSULE OGT SCH ×2 (08:55→19:38)
[2021-03-27] MEDS: levoFLOXACIN 500mg tablet PO SCH (08:55)
[2021-03-27] MEDS: furosemide 20MG tablet PO SCH (08:55)
[2021-03-27] MEDS: QUEtiapine 25mg tablet PO SCH (08:55)
[2021-03-27] MEDS: mineral oil/petrolatum, white cream 113gm jar TP SCH ×2 (08:55→19:38)
[2021-03-27] MEDS: enoxaparin 30mg/0.3ml syringe SUBCUT SCH (08:55)
[2021-03-27 11:00] VITALS: BP 121/82
[2021-03-27 15:00] VITALS: BP 113/82
--- NOTE | 2021-03-27 17:39 | NUR ---
Dr. Lorenzo was paged regarding . pt name kaorl shields on PCU room 18B is having a mild discomfort on his chest and coughing , pulse rate is 120 ,he has cough . SHEWIT [id number]
[2021-03-27 17:40] VITALS: BP 114/83
[2021-03-27 18:00] VITALS: BP 123/76
--- NOTE | 2021-03-27 18:20 | NUR ---
Patient in room PCU 3018. I have received report from FELY Ng and had the opportunity to ask questions and assume patient care.
--- NOTE | 2021-03-27 18:38 | NUR ---
Patients roommate called out for help stating pt out of breath. O2 saturations were not collected when another RN had gone into the room with O2 tubing, however, as soon as NC placed at 2L, patients O2 sats were at 96%, HR 122. Patient resting in bed, will continue to monitor.
[2021-03-27 22:00] VITALS: BP 110/82
[2021-03-28 02:00] VITALS: BP 111/82
[2021-03-28 06:00] VITALS: BP 123/80
[2021-03-28 06:08] LABS: BASOPHILS # (AUTO) 0.1 X10'3 (0-0.2); BASOPHILS % (AUTO) 0.5 % (0-1); EOSINOPHILS # (AUTO) 0.2 X10'3 (0-0.9); EOSINOPHILS % (AUTO) 1.5 % (0-6); HEMOGLOBIN 12.7 g/dl (14.0-17.9); LYMPHOCYTES # (AUTO) 4.4 X10'3 (1.1-4.8); LYMPHOCYTES % (AUTO) 27.7 % (21-51); MEAN CORPUSCULAR HEMOGLOBIN 30.9 PG (27.0-31.0); MEAN CORPUSCULAR HGB CONC 33.3 g/dL (33.0-36.5); MEAN CORPUSCULAR VOLUME 92.7 FL (78-98); MEAN PLATELET VOLUME 7.2 FL (7.4-10.4); MONOCYTES # (AUTO) 2.8 X10'3 (0-0.9); MONOCYTES % (AUTO) 17.3 % (2-12); NEUTROPHILS # (AUTO) 8.5 X10'3 (1.8-7.7); PLATELET COUNT 400 X10'3 (140-440); RED CELL DISTRIBUTION WIDTH 16.5 % (11.5-14.5)
--- NOTE | 2021-03-28 06:13 | NUR ---
Problems reprioritized. Patient report given, questions answered & plan of care reviewed with FELY Ng.
[2021-03-28 06:15] LABS: ALANINE AMINOTRANSFERASE 49 U/L (12-78); ALBUMIN 2.2 G/DL (3.4-5.0); ALBUMIN/GLOBULIN RATIO 0.4 (1.1-1.5); ALKALINE PHOSPHATASE 84 IU/L (46-116); ANION GAP 7 (8-16); ASPARTATE AMINO TRANSFERASE 19 U/L (10-37); BILIRUBIN,TOTAL 0.5 MG/DL (0.1-1.0); BLOOD UREA NITROGEN 18 MG/DL (7-18); BUN/CREATININE RATIO 19.1 (5.4-32.0); CALCIUM 7.9 MG/DL (8.5-10.1); CHLORIDE 104 MMOL/L (99-107); CREATININE 0.94 MG/DL (0.60-1.10); GLUCOSE 96 MG/DL (70-104); POTASSIUM 3.8 MMOL/L (3.5-5.1); SODIUM 138 MMOL/L (135-145); TOTAL CARBON DIOXIDE 27.1 MMOL/L (24-32); TOTAL PROTEIN 7.3 G/DL (6.4-8.2); eGFR 85 ML/MIN
[2021-03-28 06:18] LABS: MAGNESIUM 1.6 MG/DL (1.5-2.4); PHOSPHORUS 4.2 MG/DL (2.3-4.5); TRIGLYCERIDES 365 MG/DL (20-135)
[2021-03-28] MEDS: pantoprazole 40 MG vial IV SCH (07:57)
[2021-03-28] MEDS: enoxaparin 30mg/0.3ml syringe SUBCUT SCH (07:58)
[2021-03-28] MEDS: QUEtiapine 25mg tablet PO SCH (07:58)
[2021-03-28] MEDS: mineral oil/petrolatum, white cream 113gm jar TP SCH ×2 (07:58→20:26)
[2021-03-28] MEDS: furosemide 20MG tablet PO SCH (07:58)
[2021-03-28] MEDS: levoFLOXACIN 500mg tablet PO SCH (07:58)
[2021-03-28] MEDS: lactobacillus rhamnosus 10,000 MMU CELLS/CAPSULE OGT SCH ×2 (07:58→20:24)
[2021-03-28 08:58] LABS: TOTAL CELLS COUNTED 100
[2021-03-28 08:59] LABS: PLATELET ESTIMATE NORMAL; SMUDGE CELLS 2+
[2021-03-28 09:00] LABS: ANISOCYTOSIS 1+
[2021-03-28 09:01] LABS: STOMATOCYTES 1+; TOXIC GRANULATION 2+; TOXIC VACUOLATION FEW
--- NOTE | 2021-03-28 10:15 | NUR ---
PRESSURE ULCER EDUCATION: DEFINITION: A pressure ulcer is an area of skin that breaks down when you stay in one position too long. The constant pressure against the skin reduces the blood flow to that area and the affected tissue dies. CAUSES: "Being bedridden or in a wheelchair "Fragile skin "Having a chronic condition, such as diabetes or vascular disease "Inability to move certain parts of your body without assistance "Older age "Incontinence of urine or stool SYMPTOMS: "A reddened area that DOES NOT turn white when pressed on - this can be the beginning of a pressure ulcer "A blister, deep sore or a crater - these can be advanced pressure ulcers FIRST AID: "Relieve the pressure on this area "Keep the area clean and dry "Call your primary doctor if you see any of the above symptoms "DO NOT massage the area "DO NOT use a donut shaped or ring shaped pillow- these actually interfere with the blood flow and cause complications PREVENTION: "Check for pressure ulcers everyday "Change position at least every two hours to relieve pressure "Use items that help relieve pressure- pillows, sheepskin, foam padding, and powders. "Keep skin clean and dry "Eat healthy well balanced meals "Exercise daily IF YOU SEE ANY OF THESE SYMPTOMS WHILE IN THE HOSPITAL - TELL YOUR NURSE IMMEDIATELY. IF YOU SEE ANY OF THESE SYMPTOMS WHILE AT HOME OR HAVE ANY QUESTIONS OR CONCERNS ABOUT PRESSURE ULCERS - CALL YOUR PRIMARY DOCTOR IMMEDIATELY. Addendum: 03/28/21 at 1016 by Tony Yusuf RN Amended: Links added.
[2021-03-28 11:00] VITALS: BP 119/95
[2021-03-28 18:00] VITALS: BP 128/70
[2021-03-28] MEDS: HYDROcodone/acetaminophen 5mg/325mg tablet PO PRN (20:26)
[2021-03-28 22:00] VITALS: BP 102/75
[2021-03-29 02:00] VITALS: BP 96/64
[2021-03-29 06:00] VITALS: BP 100/60
--- NOTE | 2021-03-29 06:19 | NUR ---
Problems reprioritized. Patient report given, questions answered & plan of care reviewed with Alena GEIGER .
[2021-03-29] MEDS: lactobacillus rhamnosus 10,000 MMU CELLS/CAPSULE OGT SCH ×2 (07:28→19:52)
[2021-03-29] MEDS: QUEtiapine 25mg tablet PO SCH (07:28)
[2021-03-29] MEDS: furosemide 20MG tablet PO SCH (07:28)
[2021-03-29] MEDS: enoxaparin 30mg/0.3ml syringe SUBCUT SCH (07:28)
[2021-03-29] MEDS: pantoprazole 40 MG vial IV SCH (07:28)
[2021-03-29] MEDS: mineral oil/petrolatum, white cream 113gm jar TP SCH ×2 (07:29→19:52)
[2021-03-29 08:41] LABS: ALANINE AMINOTRANSFERASE 44 U/L (12-78); ALBUMIN 2.3 G/DL (3.4-5.0); ALBUMIN/GLOBULIN RATIO 0.4 (1.1-1.5); ALKALINE PHOSPHATASE 85 IU/L (46-116); ANION GAP 7 (8-16); ASPARTATE AMINO TRANSFERASE 22 U/L (10-37); BILIRUBIN,TOTAL 0.5 MG/DL (0.1-1.0); BLOOD UREA NITROGEN 21 MG/DL (7-18); BUN/CREATININE RATIO 20.6 (5.4-32.0); CALCIUM 8.2 MG/DL (8.5-10.1); CHLORIDE 101 MMOL/L (99-107); CREATININE 1.02 MG/DL (0.60-1.10); GLUCOSE 91 MG/DL (70-104); MAGNESIUM 1.6 MG/DL (1.5-2.4); PHOSPHORUS 4.7 MG/DL (2.3-4.5); POTASSIUM 4.3 MMOL/L (3.5-5.1); SODIUM 137 MMOL/L (135-145); TOTAL CARBON DIOXIDE 28.6 MMOL/L (24-32); TOTAL PROTEIN 7.5 G/DL (6.4-8.2); eGFR 77 ML/MIN
[2021-03-29 11:00] VITALS: BP 102/72
[2021-03-29 15:00] VITALS: BP 123/97
[2021-03-29 18:00] VITALS: BP 102/79
[2021-03-29] MEDS: HYDROcodone/acetaminophen 5mg/325mg tablet PO PRN (19:52)
[2021-03-29 22:00] VITALS: BP 123/75
[2021-03-30 02:00] VITALS: BP 125/64
[2021-03-30 06:00] VITALS: BP 101/70
--- NOTE | 2021-03-30 06:22 | NUR ---
Problems reprioritized. Patient report given, questions answered & plan of care reviewed with Hernandez GEIGER .
[2021-03-30 07:10] LABS: ALANINE AMINOTRANSFERASE 42 U/L (12-78); ALBUMIN 2.3 G/DL (3.4-5.0); ALBUMIN/GLOBULIN RATIO 0.5 (1.1-1.5); ALKALINE PHOSPHATASE 77 IU/L (46-116); ANION GAP 10 (8-16); ASPARTATE AMINO TRANSFERASE 26 U/L (10-37); BILIRUBIN,TOTAL 0.5 MG/DL (0.1-1.0); BLOOD UREA NITROGEN 24 MG/DL (7-18); BUN/CREATININE RATIO 23.5 (5.4-32.0); CALCIUM 8.3 MG/DL (8.5-10.1); CHLORIDE 101 MMOL/L (99-107); CREATININE 1.02 MG/DL (0.60-1.10); GLUCOSE 104 MG/DL (70-104); MAGNESIUM 1.9 MG/DL (1.5-2.4); PHOSPHORUS 5.5 MG/DL (2.3-4.5); POTASSIUM 4.2 MMOL/L (3.5-5.1); SODIUM 138 MMOL/L (135-145); TOTAL CARBON DIOXIDE 26.9 MMOL/L (24-32); TOTAL PROTEIN 7.4 G/DL (6.4-8.2); eGFR 77 ML/MIN
[2021-03-30] MEDS: lactobacillus rhamnosus 10,000 MMU CELLS/CAPSULE OGT SCH ×2 (09:41→19:52)
[2021-03-30] MEDS: enoxaparin 30mg/0.3ml syringe SUBCUT SCH (09:41)
[2021-03-30] MEDS: pantoprazole 40 MG vial IV SCH (09:41)
[2021-03-30] MEDS: QUEtiapine 25mg tablet PO SCH (09:42)
[2021-03-30] MEDS: furosemide 20MG tablet PO SCH (09:42)
[2021-03-30] MEDS: mineral oil/petrolatum, white cream 113gm jar TP SCH ×2 (09:42→19:53)
[2021-03-30 11:00] VITALS: BP 107/74
[2021-03-30 15:00] VITALS: BP 110/65
[2021-03-30 18:00] VITALS: BP 119/80
[2021-03-30 22:00] VITALS: BP 115/77
[2021-03-31 02:00] VITALS: BP 105/71
--- NOTE | 2021-03-31 06:29 | NUR ---
Patient in room PCU 3018. I have received report from KAROLINA RN and had the opportunity to ask questions and assume patient care.
[2021-03-31 07:00] VITALS: BP 113/69
[2021-03-31 07:30] LABS: MAGNESIUM 1.7 MG/DL (1.5-2.4); PHOSPHORUS 4.6 MG/DL (2.3-4.5)
[2021-03-31] MEDS: pantoprazole 40 MG vial IV SCH (10:12)
[2021-03-31] MEDS: lactobacillus rhamnosus 10,000 MMU CELLS/CAPSULE OGT SCH ×2 (10:12→19:18)
[2021-03-31] MEDS: furosemide 20MG tablet PO SCH (10:12)
[2021-03-31] MEDS: QUEtiapine 25mg tablet PO SCH (10:12)
[2021-03-31] MEDS: enoxaparin 30mg/0.3ml syringe SUBCUT SCH (10:21)
[2021-03-31] MEDS: mineral oil/petrolatum, white cream 113gm jar TP SCH ×2 (10:22→19:18)
[2021-03-31 11:00] VITALS: BP 118/75
[2021-03-31 15:00] VITALS: BP 110/72
[2021-03-31 18:00] VITALS: BP 106/61
--- NOTE | 2021-03-31 18:19 | NUR ---
Problems reprioritized. Patient report given, questions answered & plan of care reviewed with María Elena RN.
[2021-03-31 22:00] VITALS: BP 120/78
[2021-04-01 02:00] VITALS: BP 122/81
--- NOTE | 2021-04-01 06:46 | NUR ---
Patient in room PCU 3018. I have received report from KAROLINA RN and had the opportunity to ask questions and assume patient care.
[2021-04-01 07:00] VITALS: BP 115/65
[2021-04-01] MEDS: lactobacillus rhamnosus 10,000 MMU CELLS/CAPSULE OGT SCH (07:55)
[2021-04-01] MEDS: QUEtiapine 25mg tablet PO SCH (07:56)
[2021-04-01] MEDS: furosemide 20MG tablet PO SCH (07:56)
[2021-04-01] MEDS: pantoprazole 40 MG vial IV SCH (07:56)
[2021-04-01] MEDS: enoxaparin 30mg/0.3ml syringe SUBCUT SCH (07:57)
[2021-04-01] MEDS: mineral oil/petrolatum, white cream 113gm jar TP SCH (07:58)
[2021-04-01 07:59] LABS: MAGNESIUM 1.8 MG/DL (1.5-2.4); PHOSPHORUS 4.6 MG/DL (2.3-4.5)
[2021-04-01] MEDS ORDERED: LACT1CAP26 OGT (10:38)
--- NOTE | 2021-04-01 11:54 | NUR ---
Pt stable for discharge per MD order. All discharge instructions reviewed with patient and all questions. PIVs Dc'd cannula intact. [employer] satellite television installer notified. All belongings sent with pt. Wheeled to lobby by staff and picked up by [employer].
== END 2021-04-01 11:52 | disposition home or self-care (01) | DRG 720 ==
LOC: ER 18:03 → ICU 2S 21:19 → PCU 3S 03-15 16:50
PROVIDERS: ADMIT Internal Medicine; ATTEND Internal Medicine
PROC: 5A1955Z Respiratory Ventilation, Greater than 96 Consecutive Hours (ICD-10-PCS; principal; 2021-02-27)
PROC: 0BH17EZ Insertion of Endotracheal Airway into Trachea, Via Natural or Artificial Opening (ICD-10-PCS; 2021-02-27)
PROC: 02HV33Z Insertion of Infusion Device into Superior Vena Cava, Percutaneous Approach (ICD-10-PCS; 2021-02-28)
PROC: B548ZZA Ultrasonography of Superior Vena Cava, Guidance (ICD-10-PCS; 2021-02-28)
PROC: 5A1D90Z Performance of Urinary Filtration, Continuous, Greater than 18 hours Per Day (ICD-10-PCS; 2021-03-01)
PROC: 06HY33Z Insertion of Infusion Device into Lower Vein, Percutaneous Approach (ICD-10-PCS; 2021-03-01)
PROC: 5A1D90Z Performance of Urinary Filtration, Continuous, Greater than 18 hours Per Day (ICD-10-PCS; 2021-03-02)
PROC: 5A1D90Z Performance of Urinary Filtration, Continuous, Greater than 18 hours Per Day (ICD-10-PCS; 2021-03-03)
PROC: 5A1D90Z Performance of Urinary Filtration, Continuous, Greater than 18 hours Per Day (ICD-10-PCS; 2021-03-04)
PROC: 5A1D90Z Performance of Urinary Filtration, Continuous, Greater than 18 hours Per Day (ICD-10-PCS; 2021-03-05)
PROC: 5A1D90Z Performance of Urinary Filtration, Continuous, Greater than 18 hours Per Day (ICD-10-PCS; 2021-03-06)
PROC: 5A1D70Z Performance of Urinary Filtration, Intermittent, Less than 6 Hours Per Day (ICD-10-PCS; 2021-03-06)
PROC: BW211ZZ Computerized Tomography (CT Scan) of Abdomen and Pelvis using Low Osmolar Contrast (ICD-10-PCS; 2021-03-07)
PROC: 5A1D70Z Performance of Urinary Filtration, Intermittent, Less than 6 Hours Per Day (ICD-10-PCS; 2021-03-07)
PROC: 5A1D70Z Performance of Urinary Filtration, Intermittent, Less than 6 Hours Per Day (ICD-10-PCS; 2021-03-09)
PROC: 5A1D70Z Performance of Urinary Filtration, Intermittent, Less than 6 Hours Per Day (ICD-10-PCS; 2021-03-11)
PROC: 30233N1 Transfusion of Nonautologous Red Blood Cells into Peripheral Vein, Percutaneous Approach (ICD-10-PCS; 2021-03-12)
PROC: 02HV33Z Insertion of Infusion Device into Superior Vena Cava, Percutaneous Approach (ICD-10-PCS; 2021-03-12)
PROC: B548ZZA Ultrasonography of Superior Vena Cava, Guidance (ICD-10-PCS; 2021-03-12)
PROC: 5A0935A Assistance with Respiratory Ventilation, Less than 24 Consecutive Hours, High Flow/Velocity Cannula (ICD-10-PCS; 2021-03-16)
PROC: 5A0935A Assistance with Respiratory Ventilation, Less than 24 Consecutive Hours, High Flow/Velocity Cannula (ICD-10-PCS; 2021-03-17)
PROC: BW241ZZ Computerized Tomography (CT Scan) of Chest and Abdomen using Low Osmolar Contrast (ICD-10-PCS; 2021-03-23)
DX: A41.59 Other Gram-negative sepsis (principal); N17.0 Acute kidney failure with tubular necrosis; I46.9 Cardiac arrest, cause unspecified; J69.0 Pneumonitis due to inhalation of food and vomit; R65.21 Severe sepsis with septic shock; G92.9 Unspecified toxic encephalopathy; J15.211 Pneumonia due to Methicillin susceptible Staphylococcus aureus; E43 Unspecified severe protein-calorie malnutrition; J80 Acute respiratory distress syndrome; T40.411A Poisoning by fentanyl or fentanyl analogs, accidental (unintentional), initial encounter; F29 Unspecified psychosis not due to a substance or known physiological condition; R00.0 Tachycardia, unspecified; D64.9 Anemia, unspecified; Z20.822 Contact with and (suspected) exposure to COVID-19; B37.7 Candidal sepsis; R26.2 Difficulty in walking, not elsewhere classified; R51.9 Headache, unspecified; E87.8 Other disorders of electrolyte and fluid balance, not elsewhere classified; N18.9 Chronic kidney disease, unspecified; D69.6 Thrombocytopenia, unspecified; E87.0 Hyperosmolality and hypernatremia; B96.89 Other specified bacterial agents as the cause of diseases classified elsewhere; D73.5 Infarction of spleen; E87.70 Fluid overload, unspecified; F12.90 Cannabis use, unspecified, uncomplicated; F17.210 Nicotine dependence, cigarettes, uncomplicated; Z59.00 Homelessness unspecified; Z78.1 Physical restraint status; Z88.0 Allergy status to penicillin; Y92.89 Other specified places as the place of occurrence of the external cause; Z56.0 Unemployment, unspecified; Z68.22 Body mass index [BMI] 22.0-22.9, adult
CPT/HCPCS: 31500; 36415; 36430; 36556; 36573; 36600; 70450; 71045; 71260; 74177; 76705; 76937; 77001; 80048; 80053; 80069; 80202; 80305; 80320; 81001; 82272; 82330; 82803; 82810; 82948; 83036; 83605; 83735; 83880; 84100; 84132; 84134; 84145; 84478; 84484; 85007; 85018; 85025; 85384; 85610; 85730; 86885; 86900; 86901; 86920; 87040; 87070; 87077; 87081; 87185; 87186; 87324; 87340; 87449; 87635; 90935; 92508; 92616; 93005; 93306; 94002; 94003; 94640; 94760; 94799; 97110; 97116; 97161; 97530; 99291; C1751; C1769; C1894; C9113; E1594; G0257; G0378; J0171; J0456; J0696; J1644; J1650; J1720; J1940; J2150; J2185; J2248; J2370; J2704; J2930; J3010; J3370; J3475; J3480; J3490; J7030; J7040; J7050; J7070; J7120; P9016; P9045; Q4081; Q9963; Q9967

== ENCOUNTER 2021-04-08 21:36 | Emergency (ER) | payer MEDICAID ==
[~2021-04-08] VITALS: Ht 172.7 cm; Wt 75.0 kg
[~2021-04-08 21:36] MED LIST changes: +LACT1CAP26 OGT; -NO HOME MEDS; -etomidate 2mg/ml inj. ONE; -rocuronium 10mg/ml inj IV ONE; -sod chloride 0.9% 10ml flush syringe IV ONE
[2021-04-08] MEDS ORDERED: PRED10TA23 PO (22:51)
[2021-04-08] MEDS ORDERED: LEVO500T90 PO (22:51)
[2021-04-08] MEDS ORDERED: ALBU6.7H9 INH (22:51)
[2021-04-08] MEDS ORDERED: BENZ-38 PO (22:51)
[2021-04-08] MEDS: levoFLOXACIN 750MG TABLET PO ONE (22:59)
[2021-04-08] MEDS: predniSONE 20 mg tablet PO ONE (23:00)
[2021-04-08 23:25] VITALS: BP 124/65
== END 2021-04-08 23:35 | disposition home or self-care (01) ==
LOC: ER 21:37
DX: J18.9 Pneumonia, unspecified organism (principal); Z20.822 Contact with and (suspected) exposure to COVID-19; Z88.0 Allergy status to penicillin; Z79.899 Other long term (current) drug therapy; F12.10 Cannabis abuse, uncomplicated
CPT/HCPCS: 71045; 87635; 99284; C9803

== ENCOUNTER 2024-04-14 20:18 | Emergency (ER) | payer MEDICAID ==
[~2024-04-14] VITALS: Ht 175.3 cm; Wt 84.2 kg
[~2024-04-14 20:18] MED LIST changes: +ALBU6.7H14 INH
[2024-04-15 02:28] VITALS: TEMP 98.6
[2024-04-15 03:16] VITALS: BP 140/89; PULSE 97; RESP 16; O2SAT 97
== END 2024-04-15 03:22 | disposition home or self-care (01) ==
LOC: ER 20:20
DX: F11.20 Opioid dependence, uncomplicated (principal); F15.129 Other stimulant abuse with intoxication, unspecified; F19.10 Other psychoactive substance abuse, uncomplicated; Z88.0 Allergy status to penicillin; Z79.899 Other long term (current) drug therapy
CPT/HCPCS: 99285